=== PATIENT | female | born 1935 | race Caucasian/White ===

== ENCOUNTER → 2017-06-04 | Outpatient (REF) | payer OTHER ==
[~2017-06-04] MED LIST: /METO25TAB OR; /OCUVTA PO; ANUS2.5C2 TOP; ASPI1TAB PO; BENA25TA4 PO; CALCTAB93 PO; CIPR250T3 PO; DEPA1TAB3 PO; DEPA500T2 PO; HAIRTAB5 PO; LISI5TAB PO; MEGA40SU PO; MULTTAB12 PO; MULTTAB4 PO; NITR4TASL SL; NYST50SS SS; PRIL40CA PO; VITAMIN D PO; VITAMIN E PO; VITMTA PO; [UNRECOGNIZED DRUG - OTHER] PO; prednisone
[2017-06-04 18:17] LABS: BASO % 0.7 % (0.0-1.0); EOS # 0.1 K/mm3 (0.0-0.50); EOS % 1.8 % (0.0-3.0); LARGE UNSTAINED CELL # 0.1 K/mm3 (0.0-0.4); LARGE UNSTAINED CELL % 1.4 % (0.0-4.0); LYMPH # 1.1 K/mm3 (1.5-4.5); LYMPH % 22.1 % (24.0-44.0); MEAN CORPUSCULAR HEMOGLOBIN 30.5 pg (27.0-33.0); MEAN CORPUSCULAR HGB CONC 33.3 g/dl (32.0-36.5); MEAN CORPUSCULAR VOLUME 91.8 fl (80.0-96.0); MONO # 0.2 K/mm3 (0.0-0.8); MONO % 4.4 % (0.0-5.0); NEUTROPHILS # 3.5 K/mm3 (1.8-7.7); NEUTROPHILS % 69.6 % (36.0-66.0); PLATELET COUNT, AUTOMATED 219 k/mm3 (150-450); RED CELL DISTRIBUTION WIDTH 13.7 % (11.5-14.5)
[2017-06-04 20:28] LABS: ALBUMIN 3.8 GM/DL (3.2-5.2); ALBUMIN/GLOBULIN RATIO 1.15 (1.00-1.93); ALKALINE PHOSPHATASE 120 U/L (45-117); ALT/SGPT 15 U/L (12-78); ANION GAP 10 MEQ/L (8-16); AST/SGOT 19 U/L (15-37); BILIRUBIN,TOTAL 0.5 MG/DL (0.2-1.0); BLOOD UREA NITROGEN 9 MG/DL (7-18); CARBON DIOXIDE LEVEL 28 MEQ/L (21-32); CHLORIDE LEVEL 106 MEQ/L (98-107); CREATININE FOR GFR 0.56 MG/DL (0.55-1.02); GLOMERULAR FILTRATION RATE > 60.0 (>32); GLUCOSE, FASTING 79 MG/DL (83-110); POTASSIUM SERUM 4.1 MEQ/L (3.5-5.1); SODIUM LEVEL 144 MEQ/L (136-145); TOTAL PROTEIN 7.1 GM/DL (6.4-8.2)
== END ==
LOC: M LABDRAW1 11:55
PROVIDERS: ATTEND Physician Assistant
DX: G40.89 Other seizures (principal); R03.0 Elevated blood-pressure reading, without diagnosis of hypertension

== ENCOUNTER 2019-02-09 17:11 | Emergency (ER) | payer MEDICARE, OTHER ==
[~2019-02-09] VITALS: Ht 167.6 cm; Wt 53.7 kg
[~2019-02-09 17:11] MED LIST changes: -/METO25TAB OR; -/OCUVTA PO; -ASPI1TAB PO; +ASPI81TA26 PO; +METO1TAB87 OR; +PROS2TAB2 PO
[2019-02-09 17:48] LABS: BASO % 0.6 % (0.0-1.0); EOS # 0.3 10^3/uL (0.0-0.50); EOS % 4.3 % (0.0-3.0); HEMATOCRIT 39.5 % (36.0-47.0); HEMOGLOBIN 12.9 g/dl (12.0-15.5); LYMPH # 2.3 10^3/uL (1.5-4.5); LYMPH % 34.6 % (24.0-44.0); MEAN CORPUSCULAR HEMOGLOBIN 30.1 pg (27.0-33.0); MEAN CORPUSCULAR HGB CONC 32.7 g/dl (32.0-36.5); MEAN CORPUSCULAR VOLUME 92.1 fl (80.0-96.0); MONO # 0.6 10^3/uL (0.0-0.8); MONO % 8.5 % (0.0-5.0); NEUTROPHILS # 3.5 10^3/uL (1.8-7.7); NEUTROPHILS % 51.7 % (36.0-66.0); PLATELET COUNT, AUTOMATED 204 10^3/uL (150-450); RED BLOOD COUNT 4.29 10^6/uL (4.00-5.40); WHITE BLOOD COUNT 6.7 10^3/uL (4.0-10.0)
[2019-02-09 17:49] LABS: VENOUS HCO3 23.8 MEQ/L (23.0-27.0); VENOUS O2 SATURATION 86.9 % (60.0-80.0); VENOUS PARTIAL PRESSURE CO2 44.6 mmHg (38.0-50.0); VENOUS PARTIAL PRESSURE O2 57.2 mmHg (30.0-50.0); VENOUS PH 7.345 UNITS (7.330-7.430); VENOUS STANDARD HCO3 22.5 MEQ/L; VENOUS TOTAL CO2 25.2 MEQ/L (24.0-28.0)
[2019-02-09 18:02] LABS: OSMOLALITY SERUM 318 MOSM/KG (280-301)
--- NOTE | 2019-02-09 18:14 | REPVR ---
EXAM: CT Head Without Contrast EXAM DATE/TIME: 02/09/2019 5:42 PM CLINICAL HISTORY: 83 years old, female; Injury or trauma and signs and symptoms; Fall; Initial encounter; Concussion / head injury; Altered mental status/memory loss; Confusion or disorientation; Additional info: Fall/ altered mental status TECHNIQUE: Imaging protocol: Axial computed tomography images of the head/brain without contrast. Radiation optimization: All CT scans at this facility use at least one of these dose optimization techniques: automated exposure control; mA and/or kV adjustment per patient size (includes targeted exams where dose is matched to clinical indication); or iterative reconstruction. COMPARISON: CT Head without contrast 01/02/2016 1:35 PM FINDINGS: Brain: There is mild age-related parenchymal volume loss. White matter changes are demonstrated in the subcortical, centrum semiovale and periventricular white matter consistent with small vessel white matter angiopathic gliosis. Ventricles: The degree of ventricular dilatation is normal for age. No pathologic enlargement demonstrated. Bones/joints: Unremarkable. No acute fracture. Sinuses: Visualized sinuses are unremarkable. No acute sinusitis. Mastoid air cells: Visualized mastoid air cells are unremarkable. No mastoid effusion. Soft tissues: Unremarkable. IMPRESSION: There is mild age-related parenchymal volume loss. White matter changes are demonstrated in the subcortical, centrum semiovale and periventricular white matter consistent with small vessel white matter angiopathic gliosis. Electronically signed by: Dillan Pierre On 02/09/2019 18:14:20 PM
--- NOTE | 2019-02-09 18:24 | REPVR ---
EXAM: CT Cervical Spine Without Contrast EXAM DATE/TIME: 02/09/2019 5:42 PM CLINICAL HISTORY: 83 years old, female; Injury or trauma; Fall; Initial encounter; Blunt trauma; Additional info: Fall/ altered mental status TECHNIQUE: Imaging protocol: Axial computed tomography images of the cervical spine without contrast. Coronal and sagittal reformatted images were created and reviewed. Radiation optimization: All CT scans at this facility use at least one of these dose optimization techniques: automated exposure control; mA and/or kV adjustment per patient size (includes targeted exams where dose is matched to clinical indication); or iterative reconstruction. COMPARISON: CT Spine,cervical w/o contrast 03/01/2013 9:45 AM FINDINGS: Vertebrae: Degenerative changes of atlantoaxial joint. Cortical break on the anterior aspect of the base of the odontoid process with intact posterior cortical margin. Finding unchanged in comparison to the prior study of and likely represents a vascular groove. Discs/Spinal canal/Neural foramina: Disc space narrowing at C3-4 and more pronounced at C5-6 with uncovertebral osteophytes. Moderate foraminal stenosis on the right at C3, moderate foraminal stenosis on the right at C4, bilateral moderate to severe foraminal stenosis at C5, moderate bilateral foraminal stenosis at C6 secondary to uncinate joint hypertrophic change. Small posterior disc protrusion at C2-C3 4, C4-5 without cord compression. Disc osteophyte complex at C5-6 without neural compromise. Soft tissues: Unremarkable. Auditory system: Cerumen right external auditory canal. Lungs: Lung apices demonstrate mild bilateral apical pleural-parenchymal scarring. IMPRESSION: Degenerative spondylosis. No acute findings. THIS REPORT CONTAINS FINDINGS THAT MAY BE CRITICAL TO PATIENT CARE. The findings were verbally communicated via telephone conference with RAGHAVENDRA ARCE at 6:23 PM EDT on 02/09/2019. The findings were acknowledged and understood. Electronically signed by: Dillan Pierre On 02/09/2019 18:24:02 PM
[2019-02-09 18:27] LABS: ACETAMINOPHEN LEVEL < 2.0 UG/ML (10.0-30.0); ALBUMIN 3.4 GM/DL (3.2-5.2); ALT/SGPT 13 U/L (12-78); BILIRUBIN,DIRECT < 0.1 MG/DL (0.0-0.2); BILIRUBIN,TOTAL 0.3 MG/DL (0.2-1.0); BLOOD UREA NITROGEN 6 MG/DL (7-18); CALCIUM LEVEL 8.5 MG/DL (8.8-10.2); CARBON DIOXIDE LEVEL 26 MEQ/L (21-32); CHLORIDE LEVEL 107 MEQ/L (98-107); CPK CREATINE PHOSPHOKINASE 65 U/L (26-192); CREATININE FOR GFR 0.66 MG/DL (0.55-1.30); ETHYL ALCOHOL (ETHANOL) 0.122 % (0.000-0.010); GLOMERULAR FILTRATION RATE > 60.0 (>32); GLUCOSE, FASTING 77 MG/DL (70-100); MB/CK RELATIVE INDEX 4.15 (< OR =4); POTASSIUM SERUM 3.1 MEQ/L (3.5-5.1); SALICYLATE LEVEL < 1.7 MG/DL (5.0-30.0); SODIUM LEVEL 143 MEQ/L (136-145); TOTAL PROTEIN 6.4 GM/DL (6.4-8.2); TROPONIN I < 0.02 NG/ML (< 0.10)
--- NOTE | 2019-02-09 18:49 | REP ---
Chest one-view HISTORY: Altered mental status Comparison: 01/02/2016 The lungs are clear. The heart is normal in size. The pulmonary vasculature is normal in appearance. Impression: No acute disease. Electronically Signed by Neftali Jolley MD 02/09/2019 06:41 P
[2019-02-09] MEDS ORDERED: DEPA500T2 PO (19:23)
[2019-02-09 19:27] LABS: VALPROIC ACID (DEPAKOTE) 5.9 UG/ML (50.0-100.0)
[2019-02-09] MEDS ORDERED: VALPROATE SOD INJ 500 MG in D5W 50 ML IV ONE (19:30)
[2019-02-09] MEDS ORDERED: BENA2CRE3 TOP ×2 (20:52→20:55)
[2019-02-09] MEDS ORDERED: DEPA1TAB3 PO (20:55)
[2019-02-09 21:18] VITALS: BP 164/72
--- NOTE | 2019-02-10 14:32 | ECGEPIP ---
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
== END 2019-02-09 21:19 | disposition home or self-care (01) ==
LOC: EDBD 17:11 → M ED 17:11
DX: G40.909 Epilepsy, unspecified, not intractable, without status epilepticus (principal); J45.909 Unspecified asthma, uncomplicated; J44.9 Chronic obstructive pulmonary disease, unspecified; Z79.899 Other long term (current) drug therapy; Z79.82 Long term (current) use of aspirin; Z88.0 Allergy status to penicillin; Z88.7 Allergy status to serum and vaccine; Z88.8 Allergy status to other drugs, medicaments and biological substances; Z91.011 Allergy to milk products; Z91.012 Allergy to eggs; Z91.040 Latex allergy status
CPT/HCPCS: 70450; 71045; 72125; 80048; 80076; 80164; 81001; 82140; 82550; 82553; 82803; 83605; 83930; 84443; 84484; 85025; 87040; 87077; 87186; 93005; 93041; 96374; 99285; G0480

== ENCOUNTER 2020-03-15 09:58 | Emergency (ER) | payer MEDICARE ==
[~2020-03-15] VITALS: Ht 167.6 cm; Wt 55.8 kg
[~2020-03-15 09:58] MED LIST changes: +BENA2CRE3 TOP
[2020-03-15 10:57] LABS: BASO % 0.6 % (0.0-1.0); EOS # 0.2 10^3/uL (0.0-0.5); EOS % 3.1 % (0.0-3.0); HEMATOCRIT 38.3 % (36.0-47.0); HEMOGLOBIN 12.7 g/dl (12.0-15.5); LYMPH % 20.4 % (24.0-44.0); MEAN CORPUSCULAR HGB CONC 33.2 g/dl (32.0-36.5); MEAN CORPUSCULAR VOLUME 90.5 fl (80.0-96.0); MONO # 0.4 10^3/uL (0.0-0.8); MONO % 7.2 % (0.0-5.0); NEUTROPHILS # 3.5 10^3/uL (1.5-8.5); NEUTROPHILS % 68.3 % (36.0-66.0); PLATELET COUNT, AUTOMATED 210 10^3/uL (150-450); RED BLOOD COUNT 4.23 10^6/uL (4.00-5.40); WHITE BLOOD COUNT 5.1 10^3/uL (4.0-10.0)
--- NOTE | 2020-03-15 11:03 | REPVR ---
PROCEDURE INFORMATION: Exam: CT Head Without Contrast Exam date and time: 03/15/2020 10:06 AM Age: 84 years old Clinical indication: Altered mental status/memory loss TECHNIQUE: Imaging protocol: Computed tomography of the head without contrast. Radiation optimization: All CT scans at this facility use at least one of these dose optimization techniques: automated exposure control; mA and/or kV adjustment per patient size (includes targeted exams where dose is matched to clinical indication); or iterative reconstruction. COMPARISON: CT Head without contrast 02/09/2019 5:34 PM FINDINGS: Brain: Moderate hypoattenuating foci are noted in the central cerebral, posterior superior periatrial and anterior lateral ventricular periventricular white matter bilaterally. Mild bilateral globus pallidus calcifications. No intracranial hemorrhage. No mass or acute cortical infarction identified. Ventricles: Prominence of the ventricular system and subarachnoid spaces is consistent with the patient's age of 84 years. Bones/joints: Unremarkable. No acute fracture. Sinuses: Moderate bilateral sphenoid sinus mucosal thickening, new. Mastoid air cells: Visualized mastoid air cells are well aerated. Vasculature: Atherosclerotic calcifications are present involving the carotid artery siphons bilaterally. Soft tissues: Unremarkable. IMPRESSION: 1. Age appropriate supratentorial and infratentorial atrophy. 2. Moderate chronic white matter microvascular ischemic disease. 3. No acute intracranial abnormality identified. 4. Incidental paranasal sinus disease as above. Electronically signed by: Shahbaz Burr On 03/15/2020 11:02:59 AM
--- NOTE | 2020-03-15 11:21 | REP ---
CHEST, SINGLE VIEW: There is no evidence of acute infiltrate. No pleural effusion is seen. The heart is normal in size. The mediastinal silhouette is unremarkable. The visualized osseous structures are intact. IMPRESSION: No acute pulmonary disease. Electronically Signed by Trace Rocha MD 03/16/2020 12:59 P
[2020-03-15 11:29] LABS: ALBUMIN 3.4 GM/DL (3.2-5.2); ALT/SGPT 14 U/L (12-78); BILIRUBIN,DIRECT 0.2 MG/DL (0.0-0.2); BILIRUBIN,TOTAL 0.8 MG/DL (0.2-1.0); BLOOD UREA NITROGEN 8 MG/DL (7-18); CALCIUM LEVEL 8.8 MG/DL (8.8-10.2); CARBON DIOXIDE LEVEL 26 MEQ/L (21-32); CHLORIDE LEVEL 111 MEQ/L (98-107); CK-MB VALUE MASS 3.1 NG/ML (<3.6); CPK CREATINE PHOSPHOKINASE 66 U/L (26-192); CREATININE FOR GFR 0.58 MG/DL (0.55-1.30); GLOMERULAR FILTRATION RATE > 60.0 (>32); GLUCOSE, FASTING 94 MG/DL (70-100); SODIUM LEVEL 145 MEQ/L (136-145); TOTAL PROTEIN 6.7 GM/DL (6.4-8.2); TROPONIN I < 0.02 NG/ML (< 0.10)
[2020-03-15 11:58] LABS: VENOUS BASE EXCESS 0.4 (-2.0-2.0); VENOUS HCO3 26.5 MEQ/L (23.0-27.0); VENOUS O2 SATURATION 86.6 % (60.0-80.0); VENOUS PARTIAL PRESSURE CO2 48.4 mmHg (38.0-50.0); VENOUS PARTIAL PRESSURE O2 55.4 mmHg (30.0-50.0); VENOUS PH 7.356 UNITS (7.330-7.430); VENOUS STANDARD HCO3 24.6 MEQ/L
[2020-03-15 13:00] VITALS: BP 146/67
--- NOTE | 2020-03-15 20:31 | ECGEPIP ---
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
[2020-03-18 13:54] LABS: OSMOLALITY SERUM 284 mOsmo/kg (280-301)
== END 2020-03-15 13:10 | disposition home or self-care (01) ==
LOC: M ED 09:58
DX: R56.9 Unspecified convulsions (principal); I10 Essential (primary) hypertension; Z91.19 Patient's noncompliance with other medical treatment and regimen; E11.9 Type 2 diabetes mellitus without complications; J45.909 Unspecified asthma, uncomplicated; I34.0 Nonrheumatic mitral (valve) insufficiency; Z88.0 Allergy status to penicillin; Z88.7 Allergy status to serum and vaccine; Z88.8 Allergy status to other drugs, medicaments and biological substances; Z91.011 Allergy to milk products; Z91.012 Allergy to eggs; Z91.040 Latex allergy status

== ENCOUNTER 2020-06-15 17:06 | Inpatient (IN) | payer MEDICARE ==
[~2020-06-15] VITALS: Ht 162.6 cm; Wt 50.8 kg
[2020-06-15] MEDS ORDERED: NS 1,000 ML IV SCH (19:08)
[2020-06-15] MEDS ORDERED: MORPHINE 2 MG/ML 1ML VIAL (J2270) IV ONE (19:15)
--- NOTE | 2020-06-15 19:32 | REPVR ---
PROCEDURE INFORMATION: Exam: XR Chest, 1 View Exam date and time: 06/15/2020 6:38 PM Age: 84 years old Clinical indication: Other: Pre-op; Additional info: FX hip TECHNIQUE: Imaging protocol: XR of the chest Views: 1 view. COMPARISON: CR PORTABLE CHEST X-RAY 03/15/2020 10:15 AM FINDINGS: Lungs: Unremarkable. No consolidation. Pleural space: Unremarkable. No pleural effusion. No pneumothorax. Heart/Mediastinum: Unremarkable. No cardiomegaly. Bones/joints: Moderate scoliosis of the upper thoracic spine, apex to the right. Lace-like sclerotic lesion within the left humerus proximal metaphysis consistent with medullary bone infarct versus cartilaginous lesion (such as enchondroma), unchanged. IMPRESSION: No acute abnormality. Electronically signed by: Rasheed Chapman On 06/15/2020 19:32:05 PM
--- NOTE | 2020-06-15 19:35 | REPVR ---
PROCEDURE INFORMATION: Exam: XR Right Femur Exam date and time: 06/15/2020 6:23 PM Age: 84 years old Clinical indication: Pain; Hip; Right; Additional info: Fall TECHNIQUE: Imaging protocol: XR Right femur. Views: 2 views. COMPARISON: No relevant prior studies available. FINDINGS: Bones/joints: There is an impacted, nondisplaced fracture of the right subcapital femoral neck. The right hip and knee joints are intact. The bones are osteopenic. Soft tissues: Unremarkable. IMPRESSION: Nondisplaced impacted fracture of the right subcapital femoral neck. Electronically signed by: Rasheed Chapman On 06/15/2020 19:35:20 PM
--- NOTE | 2020-06-15 19:36 | REPVR ---
PROCEDURE INFORMATION: Exam: XR Pelvis Exam date and time: 06/15/2020 6:23 PM Age: 84 years old Clinical indication: Hip pain; Right hip; Additional info: Fall TECHNIQUE: Imaging protocol: XR pelvis. Views: 3 or more views. COMPARISON: No relevant prior studies available. FINDINGS: Bones/joints: There is an impacted fracture of the right subcapital femoral neck. The bones are osteopenic. There are mild degenerative arthritic changes within the sacroiliac joints, pubic symphysis and hip joints. The lower sacrum is suboptimally visualized. Soft tissues: Unremarkable. IMPRESSION: Impacted nondisplaced fracture of the right subcapital femoral neck. Electronically signed by: Rasheed Chapman On 06/15/2020 19:36:07 PM
--- NOTE | 2020-06-15 19:55 | REPVR ---
PROCEDURE INFORMATION: Exam: XR Right Tibia and Fibula Exam date and time: 06/15/2020 7:34 PM Age: 84 years old Clinical indication: Other: Injury; Additional info: Fall TECHNIQUE: Imaging protocol: XR Right tibia and fibula. Views: 2 views. COMPARISON: CR Femur RIGHT 06/15/2020 6:40 PM FINDINGS: Bones/joints: The bones are mildly osteopenic. The knee and ankle joints are intact. No fracture or dislocation. Soft tissues: Vascular calcifications within the right lower leg soft tissues. IMPRESSION: No fracture. Electronically signed by: Rasheed Chapman On 06/15/2020 19:54:44 PM
--- NOTE | 2020-06-15 20:12 | REPVR ---
PROCEDURE INFORMATION: Exam: CT Head Without Contrast Exam date and time: 06/15/2020 7:45 PM Age: 84 years old Clinical indication: Injury or trauma; Fall; Initial encounter; Blunt trauma (contusions or hematomas); Consciousness not specified TECHNIQUE: Imaging protocol: Computed tomography of the head without contrast. Radiation optimization: All CT scans at this facility use at least one of these dose optimization techniques: automated exposure control; mA and/or kV adjustment per patient size (includes targeted exams where dose is matched to clinical indication); or iterative reconstruction. COMPARISON: CT Head without contrast 03/15/2020 10:15 AM FINDINGS: Brain: Global cerebral atrophy is consistent with patient's age. Decreased attenuation within the white matter tracts of both cerebral hemispheres is nonspecific but typically seen with small vessel disease/chronic white matter ischemic changes of aging. No intracranial hemorrhage or mass effect. Senescent calcifications within the basal ganglia. Ventricles: Unremarkable. No ventriculomegaly. Bones/joints: No fracture. Sinuses: Mucosal thickening of the sphenoid sinuses. No paranasal sinus air-fluid level. Mastoid air cells: Status post left mastoidectomy. Clear right mastoids. Auditory system: Soft tissue density material within the right and left external auditory canals, indeterminate. Soft tissues: Unremarkable. IMPRESSION: No acute abnormality. Electronically signed by: Rasheed Chapman On 06/15/2020 20:11:21 PM
--- NOTE | 2020-06-15 20:28 | REPVR ---
PROCEDURE INFORMATION: Exam: CT Abdomen And Pelvis Without Contrast Exam date and time: 06/15/2020 7:45 PM Age: 84 years old Clinical indication: Injury or trauma; Fall; Initial encounter; Blunt; Generalized; Additional info: Gen abd pain TECHNIQUE: Imaging protocol: Computed tomography of the abdomen and pelvis without contrast. Radiation optimization: All CT scans at this facility use at least one of these dose optimization techniques: automated exposure control; mA and/or kV adjustment per patient size (includes targeted exams where dose is matched to clinical indication); or iterative reconstruction. COMPARISON: CR Hip,AP,LAT to include Pelvis RIGHT 06/15/2020 6:24 PM FINDINGS: Liver: Unremarkable. No mass. Gallbladder and bile ducts: Normal. No calcified stones. No ductal dilation. Pancreas: Unremarkable. No ductal dilation. Spleen: Unremarkable. No splenomegaly. Adrenals: Normal. No mass. Kidneys and ureters: Unremarkable. No stones. No hydronephrosis. Stomach and bowel: Diverticulosis of the sigmoid colon. No diverticulitis. Findings suspicious for small gastric hiatus hernia. Unremarkable small bowel. Appendix: No evidence of appendicitis. Intraperitoneal space: No free air. No significant fluid collection. Vasculature: Severe atherosclerosis of the abdominal aorta and branch vessels. No aneurysm. Lymph nodes: No enlarged lymph nodes. Bladder: Unremarkable as visualized. Reproductive: Unremarkable as visualized. Bones/joints: Impacted nondisplaced fracture of the right subcapital femoral neck. Mild degenerative spondylosis of the lumbar spine. Minimal anterolisthesis of L4. Mild compression fracture deformity of the superior endplate of L1. This compression fracture of L1 is of uncertain age but new compared to a prior CT scan of the chest performed on 01/03/2016. No retropulsed bony fragment or bony spinal stenosis. Consider evaluation with MRI for evaluation of fracture age as clinically indicated. Soft tissues: Unremarkable. IMPRESSION: 1. No acute abdominopelvic process. 2. Impacted nondisplaced fracture of the right subcapital femoral neck. 3. Mild compression fracture deformity of the superior endplate of L1 is of uncertain age but new compared to a prior CT scan of the chest performed on 01/03/2016. Consider evaluation with MRI for evaluation of fracture age as clinically indicated. Electronically signed by: Rasheed Chapman On 06/15/2020 20:28:25 PM
[2020-06-15 20:39] LABS: BASO % 0.3 % (0.0-1.0); EOS % 0.4 % (0.0-3.0); HEMATOCRIT 39.6 % (36.0-47.0); HEMOGLOBIN 12.6 g/dl (12.0-15.5); LYMPH # 0.5 10^3/uL (1.5-5.0); MEAN CORPUSCULAR HEMOGLOBIN 28.1 pg (27.0-33.0); MEAN CORPUSCULAR HGB CONC 31.8 g/dl (32.0-36.5); MEAN CORPUSCULAR VOLUME 88.2 fl (80.0-96.0); MONO # 0.3 10^3/uL (0.0-0.8); MONO % 4.6 % (0.0-5.0); NEUTROPHILS # 6.2 10^3/uL (1.5-8.5); NEUTROPHILS % 87.3 % (36.0-66.0); PLATELET COUNT, AUTOMATED 210 10^3/uL (150-450); RED BLOOD COUNT 4.49 10^6/uL (4.00-5.40); WHITE BLOOD COUNT 7.1 10^3/uL (4.0-10.0)
--- NOTE | 2020-06-15 20:49 | REPVR ---
PROCEDURE INFORMATION: Exam: CT Cervical Spine Without Contrast Exam date and time: 06/15/2020 7:45 PM Age: 84 years old Clinical indication: Injury or trauma; Fall; Initial encounter; Blunt trauma TECHNIQUE: Imaging protocol: Computed tomography images of the cervical spine without contrast. Radiation optimization: All CT scans at this facility use at least one of these dose optimization techniques: automated exposure control; mA and/or kV adjustment per patient size (includes targeted exams where dose is matched to clinical indication); or iterative reconstruction. COMPARISON: CT Spine,cervical w/o contrast 02/09/2019 5:34 PM FINDINGS: Vertebrae: Bony fusion of the right and left C3-C4 facet joints. Old anterior wedge fracture deformity of T4 is unchanged compared to a prior CT angiogram of the chest performed on 01/03/2016. No acute fracture. Discs/Spinal canal/Neural foramina: Degenerative disc disease and facet arthrosis throughout the cervical spine. Mild bony spinal stenosis at C5-C6. Soft tissues: Unremarkable. Sinuses: Mucosal thickening of the sphenoid sinuses without fluid level. Lungs: Calcified granuloma within the left upper lobe. Noncalcified pleural based nodule measuring 4 mm within the right upper lobe, unchanged compared to the prior chest CT. No additional follow-up recommended. IMPRESSION: 1. Degenerative spondylosis of the cervical spine. 2. No acute fracture. Electronically signed by: Rasheed Chapman On 06/15/2020 20:32:37 PM
[2020-06-15 20:54] LABS: INR 0.99; PROTHROMBIN TIME 13.3 SECONDS (11.8-14.0)
[2020-06-15 20:55] LABS: PARTIAL THROMBOPLASTIN TIME 29.1 SECONDS (25.0-38.4)
[2020-06-15 21:11] LABS: ALBUMIN 3.5 GM/DL (3.2-5.2); ALT/SGPT 16 U/L (12-78); BILIRUBIN,DIRECT 0.3 MG/DL (0.0-0.2); BILIRUBIN,TOTAL 1.2 MG/DL (0.2-1.0); BLOOD UREA NITROGEN 6 MG/DL (7-18); CALCIUM LEVEL 9.3 MG/DL (8.8-10.2); CARBON DIOXIDE LEVEL 29 MEQ/L (21-32); CHLORIDE LEVEL 104 MEQ/L (98-107); CREATININE FOR GFR 0.53 MG/DL (0.55-1.30); GLOMERULAR FILTRATION RATE > 60.0 (>32); GLUCOSE, FASTING 105 MG/DL (70-100); LIPASE 36 U/L (73-393); POTASSIUM SERUM 3.4 MEQ/L (3.5-5.1); SODIUM LEVEL 139 MEQ/L (136-145); VALPROIC ACID (DEPAKOTE) 4.9 UG/ML (50.0-100.0)
[2020-06-15] MEDS ORDERED: POTASSIUM CHLORIDE 10% LIQ 20 MEQ/15 ML UDC PO ONE (21:30)
[2020-06-15] MEDS ORDERED: MORPHINE 2 MG/ML 1ML VIAL (J2270) IV PRN (21:45)
[2020-06-15] MEDS ORDERED: LR 1,000 ML IV SCH (21:45)
--- NOTE | 2020-06-15 21:48 | HPEPDOC ---
[facility] Medical History & Physical Date of Admission Jun 15, 2020 Date of Service: Jun 15, 2020 Primary Care Physician: JASMIN COMER DO Attending Physician: MEGGAN MANN MD History and Physical TIME OF SERVICE: 1152pm CHIEF COMPLAINT: fall HISTORY OF PRESENT ILLNESS: The majority of the history was obtained from I[place]. The patient and her seem to have dementia and could not provide any history. This 84 yr old F came to the hospital via EMS who found her on the ground. There were inconsistent reports about how long the patient was on the ground. Per the patients initially reported that she might have fallen in the morning, but based on ER intake notes the patient may have fallen on Sunday; when EMS picked her up she c/o right hip pain. At the time of my evaluation the patients seemed to have forgotten that his had a fall, denied that she had been c/o about anything, and said that it was possible that his daughter called EMS. He was unable to provide any PMH or SH. 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 HOME MEDICATIONS: Please see below. PHYSICAL EXAM VITAL SIGNS: Please see below. GENERAL APPEARANCE: slim build / well developed /NAD HEENT: temporal wasting/ mucus membranes dry CARDIOVASCULAR: RRR/NMRG / radial pulses intact LUNGS: CTAB on RA ABDOMEN: scaphoid INTEGUMENT: no generalized pallor PSYCHIATRIC: alert / not tracking my movements LABORATORY DATA: 06/15/20 20:42: Immature Granulocyte % (Auto) 0.4, Neutrophils (%) (Auto) 87.3H, Lymphocytes (%) (Auto) 7.0L, Monocytes (%) (Auto) 4.6, Eosinophils (%) (Auto) 0.4, Basophils (%) (Auto) 0.3, Neutrophils # (Auto) 6.2, Lymphocytes # (Auto) 0.5L, Monocytes # (Auto) 0.3, Eosinophils # (Auto) 0.0, Basophils # (Auto) 0.0, Nucleated Red Blood Cells % (auto) 0.0, Prothrombin Time 13.3, Prothromb Time International Ratio 0.99, Activated Partial Thromboplast Time 29.1, Anion Gap 6L, Glomerular Filtration Rate > 60.0, Calcium Level 9.3, Total Bilirubin 1.2H, Direct Bilirubin 0.3H, Aspartate Amino Transf (AST/SGOT) 27, Alanine Aminotransferase (ALT/SGPT) 16, Alkaline Phosphatase 126H, Total Protein 7.0, Albumin 3.5, Albumin/Globulin Ratio 1.0L, Lipase 36L, Valproic Acid (Depakene) Level 4.9L Urine Color YELLOW, Urine Appearance CLEAR, Urine pH 7.0, Urine Specific [place] 1.009, Urine Protein NEGATIVE, Urine Glucose (UA) 1+H, Urine Ketones 1+H, Urine Blood 2+H, Urine Nitrite NEGATIVE, Urine Bilirubin NEGATIVE, Urine Urobilinogen 0.2, Urine Leukocyte Esterase NEGATIVE, Urine WBC (Auto) 2, Urine RBC (Auto) 12H, Urine Hyaline Casts (Auto) 0, Urine Bacteria (Auto) NEGATIVE, Urine Squamous Epithelial Cells 0, Urine Mucus (Auto) SMALL, Urine Sperm (Auto) IMAGING: Xray pelvis IMPRESSION: Impacted nondisplaced fracture of the right subcapital femoral neck. Xray femur IMPRESSION: Nondisplaced impacted fracture of the right subcapital femoral neck. Xray chest IMPRESSION: No acute abnormality. Xray fib/tib IMPRESSION: No fracture. CT cervical spine IMPRESSION: 1. Degenerative spondylosis of the cervical spine. 2. No acute fracture. CT head IMPRESSION: No acute abnormality. CT abd/pelvis IMPRESSION: 1. No acute abdominopelvic process. 2. Impacted nondisplaced fracture of the right subcapital femoral neck. 3. Mild compression fracture deformity of the superior endplate of L1 is of uncertain age but new compared to a prior CT scan of the chest performed on 01/03/2016. Consider evaluation with MRI for evaluation of fracture age as clinically indicated. MICROBIOLOGY: Please see below. ASSESSMENT: is an 84 yr old w a hx of COPD, seizures and visual impairment who was found lying on the floor by EMS and was found to have a right hip fx and L1 fx . PLAN: 1 Fall of unclear cause It is not clear if the patient has a gait disorder, but she is legally blind w hich predisposes her to falling. She also has a hx of seizure disorder and non- compliance w meds CT of the head and cervical spine are unremarkable Trop is wnl Plan: Admit to med/surg / frequent neuro checks/ day time team can call the patients family to obtain collateral hx and consider an EEG 2. Right hip fracture & L1 fx Plan: NPO after midnight w IVF for surgery possibly tomorrow / Ortho consult / PT consult / pain control w Morphine / will need work-up to r/o secondary causes of Osteoporosis which can be done on an out pt prior to selecting medications 3. Osteoporosis Xrays show osteopenia Plan: can f/u w PCP for DEXA (if T score less than -3 will need Endo referral to start Forteo), BMP to calculate CrCl BMP to calculate CrCl prior to selecting bisphosphinate or Denosumab, / start Ca w vit D 4 HTN Plan: start amlodipine pending collateral hx 5 Asthma / COPD Plan: albuterol PRN 6 Seizure Disorder Plan: day time team to call family to obtain collateral hx on meds 7. NIDDM Plan: FSBS w hypoglycemia protocol / day time team to call family to obtain collateral hx on meds 8. Low BMI 18.3 Plan: f/u pre-albumin /day time team may consider swallow eval and or access assoc consult 9. Perioperative Eval RCRI Score = 0 / her BNP is >300 Plan: telemetry w daily trops / no additional testing is needed prior to proceeding with surgery DVT Px w SCDs Dispo: home vs ARU after more than 2 midnights stay Home Medications No Active Prescriptions or Reported Meds Allergies Coded Allergies: Egg Derived (Verified Allergy, Unknown, 02/09/19) Influenza Virus Vaccines (Verified Allergy, Unknown, 02/09/19) Penicillins (Verified Allergy, Unknown, 02/09/19) egg (Verified Allergy, Unknown, 02/09/19) latex (Verified Allergy, Unknown, 02/09/19) milk (Verified Allergy, Unknown, 02/09/19) sulfur dioxide (Verified Allergy, Unknown, 02/09/19) A-FIB/CHADSVASC A-FIB History Current/History of A-Fib/PAF?: No Current PO Anticoag Therapy: No MEGGAN MANN MD Jun 15, 2020 21:48
[2020-06-15 22:44] LABS: MAGNESIUM LEVEL 1.9 MG/DL (1.8-2.4); NT-PRO BNP 889 PG/ML (<450); TROPONIN I 0.03 NG/ML (< 0.10)
[2020-06-15] MEDS ORDERED: ACETAMINOPHEN TAB 650MG DOSE (2X325MG) PO PRN (23:00)
[2020-06-15] MEDS ORDERED: MOM 30ML SUSPENSION UDC PO PRN (23:00)
[2020-06-16 01:41] VITALS: BP 139/82
[2020-06-16 06:00] VITALS: BP 139/81
[2020-06-16] MEDS ORDERED: CLINDAMYCIN 900 MG in IV 1 EA IV ONE (06:00)
[2020-06-16] MEDS ORDERED: GLUCAGON INJ 1MG VIAL SC PRN (06:30)
[2020-06-16] MEDS ORDERED: GLUCOSE 4GM CHEW TABLET PO PRN (06:30)
[2020-06-16] MEDS ORDERED: DEXTROSE 50% 50 ML SYRINGE IV PRN (06:30)
[2020-06-16 06:35] LABS: HEMATOCRIT 34.2 % (36.0-47.0); MEAN CORPUSCULAR HEMOGLOBIN 28.5 pg (27.0-33.0); MEAN CORPUSCULAR HGB CONC 32.2 g/dl (32.0-36.5); MEAN CORPUSCULAR VOLUME 88.6 fl (80.0-96.0); PLATELET COUNT, AUTOMATED 186 10^3/uL (150-450); RED BLOOD COUNT 3.86 10^6/uL (4.00-5.40)
[2020-06-16 07:00] LABS: BLOOD UREA NITROGEN 9 MG/DL (7-18); CALCIUM LEVEL 8.4 MG/DL (8.8-10.2); CARBON DIOXIDE LEVEL 28 MEQ/L (21-32); CHLORIDE LEVEL 109 MEQ/L (98-107); CREATININE FOR GFR 0.44 MG/DL (0.55-1.30); GLOMERULAR FILTRATION RATE > 60.0 (>32); GLUCOSE, FASTING 89 MG/DL (70-100); MAGNESIUM LEVEL 1.9 MG/DL (1.8-2.4); POTASSIUM SERUM 3.3 MEQ/L (3.5-5.1); SODIUM LEVEL 142 MEQ/L (136-145)
[2020-06-16] MEDS: ALBUTEROL SULFATE 2.5 MG/0.5 ML INH NEB SOLN NEB SCH ×3 (07:52→20:34)
[2020-06-16 09:43] LABS: PREALBUMIN 12.1 MG/DL (20.0-40.0); PROLACTIN 7.9 NG/ML; TROPONIN I 0.02 NG/ML (< 0.10)
[2020-06-16] MEDS: CALCIUM/VITAMIN D 500 MG TAB PO SCH ×2 (09:57→22:50)
--- NOTE | 2020-06-16 11:05 | CR ---
DATE OF CONSULTATION: 06/16/2020 CHIEF COMPLAINT: Right hip pain and fracture. This is an 84-year-old woman who fell yesterday injuring her right hip. She was seen in the emergency room and was noted to have a right femoral neck fracture that was somewhat displaced. It posteriorly displaced and impacted. I was asked to evaluate her for this. She denies any other injury. Her review of systems is otherwise documented in the chart and reviewed and otherwise negative. PAST MEDICAL HISTORY: Notable for hypertension, asthma, chronic obstructive pulmonary disease (COPD), seizure disorder, chronic headache, macular degenerative, aortic valve (AV) insufficiency, mitral valve insufficiency, insulin-dependent diabetes, visual issues, ovarian cancer, appendectomy, hysterectomy. SOCIAL HISTORY: History of tobacco use. 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 Lives with her . FAMILY HISTORY: Otherwise unremarkable. ALLERGIES: Egg derived products, influenza vaccine, PENICILLIN, LATEX, milk, sulfur dioxide. MEDICATIONS: Include: - anti-seizure medication - vitamin D PHYSICAL EXAMINATION: Alert, oriented, no acute distress. HEENT: Extraocular muscles intact. Pharynx benign. Cardiac: Regular rate and rhythm. Abdomen: Soft, nontender, nondistended. Extremities: No obvious significant peripheral edema, no calf tenderness, no palpable cords, moves her feet and toes well. Her right hip is significantly irritable to range of motion. She has slight shortening on the right side compared to the left. The left hip is non-irritable. X-rays are reviewed showing an impacted and somewhat displaced femoral neck fracture, would be a garden II. IMPRESSION: Right femoral neck fracture. RECOMMENDATION: Suggest we proceed with hemiarthroplasty. I think this is the most likely thing to get her up and mobile. I do not think there is a role for percutaneous pinning as the fracture is somewhat displaced and she has obvious osteopenia at her age. I talked to her about the nature and the risks of the procedure and she wishes to go ahead. We will plan on doing a right hip hemiarthroplasty. She understands the nature of this, the risks of bleeding, infection, damage to nerves, vessels, persistent pain, wear, loosening, dislocation, leg length inequality, blood clots, medical problems, , among others. Consent was obtained. She wishes to proceed with this. Will hopefully be able to proceed with this later today. She has been placed on the operating room schedule. Apparently, a medical clearance has been obtained. MTDD
[2020-06-16] MEDS ORDERED: CLINDAMYCIN INJ 900MG/6ML VIAL As Ordered ONE (13:47)
[2020-06-16] MEDS ORDERED: propofoL 200 MG/20 ML VIAL As Ordered ONE (14:11)
[2020-06-16] MEDS ORDERED: LIDOCAINE 2% 100MG/5ML SDV (FOR ANES.) As Ordered ONE (14:11)
[2020-06-16] MEDS ORDERED: fentaNYL 100 MCG/2 ML INJECTION (J3010) As Ordered ONE (14:11)
[2020-06-16] MEDS ORDERED: MIDAZOLAM INJ 2MG/2ML VIAL (J2250 PER 1MG) As Ordered ONE (14:11)
[2020-06-16] MEDS ORDERED: CLINDAMYCIN 900 MG/50 ML PREMIX BAG As Ordered ONE (14:19)
[2020-06-16] MEDS ORDERED: EPINEPHrine INJ 1 MG/ML 1ML AMP As Ordered ONE (15:08)
[2020-06-16] MEDS ORDERED: BUPIVACAINE HCL 0.25% 10ML VIAL As Ordered ONE (15:13)
[2020-06-16] MEDS ORDERED: PHENYLephrine HCL 500 MCG/5 ML (100MCG/ML) SYRINGE (J2370) As Ordered ONE (15:28)
[2020-06-16] MEDS ORDERED: fentaNYL 100 MCG/2 ML INJECTION (J3010) IV PRN (17:00)
[2020-06-16] MEDS ORDERED: ONDANSETRON 4MG/2ML VIAL IV PRN ×2 (17:00)
[2020-06-16] MEDS ORDERED: MORPHINE 2 MG/ML 1ML VIAL (J2270) IV PRN (17:00)
[2020-06-16] MEDS ORDERED: ACETAMINOPHEN 500 MG TAB PO PRN (17:00)
[2020-06-16] MEDS ORDERED: LR 1,000 ML IV SCH ×2 (17:00)
--- NOTE | 2020-06-16 17:17 | REPVR ---
PROCEDURE INFORMATION: Exam: XR Right Hip with Pelvis when Performed Exam date and time: 06/16/2020 4:33 PM Age: 84 years old Clinical indication: Prior surgery; Surgery date: Post-operative (0-2 days); Additional info: Post op in pacu [id number] TECHNIQUE: Imaging protocol: XR Right hip with pelvis when performed. Views: 2 or 3 views. COMPARISON: CT ABD PELVIS W/O CONTRAST 06/15/2020 7:42 PM FINDINGS: Bones/joints: There is a total hip replacement in good alignment. Soft tissues: Mild soft tissue air and skin riky. IMPRESSION: No acute findings. Total hip replacement in good alignment. Electronically signed by: Zurdo Hinojosa On 06/16/2020 17:17:15 PM
--- NOTE | 2020-06-16 18:35 | IPNPDOC ---
Text Note Date of Service The patient was seen on 06/16/20. NOTE SUBJECTIVE: no overnight events OBJECTIVE: FOCUSED EXAMINATION: general - no acute distress HEENT - normocephalic heart: regular rate lungs: no abnormalities on auscultation MSK: no gross abnormalities neuro: no focal defecits psych: normal mood VITAL SIGNS: Please see below. 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 Right hip fracture & L1 fx hemiarthroplasty later today 3. Osteoporosis 4 HTN resume home meds 5 Asthma / COPD Plan: albuterol PRN 6 Seizure Disorder will resume home meds 7. NIDDM insulin for glycemic control VS,Fishbone, I+O VS, Fishbone, I+O Laboratory Tests 06/15/20 20:22 06/16/20 06:12 Vital Signs Date Time Temp Pulse Resp B/P (MAP) Pulse Ox O2 Delivery O2 Flow Rate FiO2 06/16/20 18:00 89 18 159/70 (99) 100 Nasal Cannula 3 06/16/20 17:01 98.8 I&O- Last 24 Hours up to 6 AM 06/16/20 06:00 Intake Total 500 ml Output Total 200 ml Balance 300 ml WINDY PAULSON DO Jun 16, 2020 18:35
[2020-06-16 19:20] VITALS: BP 149/50
[2020-06-16] MEDS ORDERED: PERCOCET 5MG/325MG TAB As Ordered ONE (19:24)
[2020-06-16] MEDS: PERCOCET 5MG/325MG TAB PO PRN (19:25)
[2020-06-16] MEDS: ACETAMINOPHEN TAB 650MG DOSE (2X325MG) PO PRN (22:50)
[2020-06-16] MEDS: CLINDAMYCIN 900 MG in IV 1 EA IV SCH (22:50)
[2020-06-17] MEDS: ALBUTEROL SULFATE 2.5 MG/0.5 ML INH NEB SOLN NEB SCH ×4 (01:23→18:06)
[2020-06-17] MEDS: traMADol 50 MG TAB PO PRN ×2 (04:49→15:14)
[2020-06-17 05:00] VITALS: BP 100/70
[2020-06-17] MEDS: CLINDAMYCIN 900 MG in IV 1 EA IV SCH (06:26)
[2020-06-17 07:07] LABS: HEMATOCRIT 29.6 % (36.0-47.0); HEMOGLOBIN 9.3 g/dl (12.0-15.5); MEAN CORPUSCULAR HEMOGLOBIN 28.4 pg (27.0-33.0); MEAN CORPUSCULAR HGB CONC 31.4 g/dl (32.0-36.5); MEAN CORPUSCULAR VOLUME 90.2 fl (80.0-96.0); PLATELET COUNT, AUTOMATED 176 10^3/uL (150-450); RED BLOOD COUNT 3.28 10^6/uL (4.00-5.40)
[2020-06-17] MEDS: MIRALAX *UNIT DOSE* 17GM PACKET PO SCH (09:27)
[2020-06-17] MEDS: PERCOCET 5MG/325MG TAB PO PRN ×2 (09:27→20:49)
[2020-06-17] MEDS: CALCIUM/VITAMIN D 500 MG TAB PO SCH ×2 (09:28→20:49)
[2020-06-17] MEDS: DIVALPROEX 500MG *ER* TAB PO SCH ×2 (09:28→09:45)
[2020-06-17 11:27] LABS: BLOOD UREA NITROGEN 13 MG/DL (7-18); CALCIUM LEVEL 8.1 MG/DL (8.8-10.2); CARBON DIOXIDE LEVEL 29 MEQ/L (21-32); CHLORIDE LEVEL 107 MEQ/L (98-107); CREATININE FOR GFR 0.47 MG/DL (0.55-1.30); GLOMERULAR FILTRATION RATE > 60.0 (>32); GLUCOSE, FASTING 121 MG/DL (70-100); POTASSIUM SERUM 3.5 MEQ/L (3.5-5.1); SODIUM LEVEL 141 MEQ/L (136-145)
[2020-06-17 14:00] VITALS: BP 124/64
[2020-06-17] MEDS: RIVAROXABAN 10 MG TAB (XARELTO) PO SCH (17:32)
[2020-06-17 20:00] VITALS: BP 123/61
[2020-06-17 20:54] VITALS: BP 110/50
--- NOTE | 2020-06-17 23:57 | IPNPDOC ---
Text Note Date of Service The patient was seen on 06/17/20. NOTE SUBJECTIVE: no overnight events OBJECTIVE: FOCUSED EXAMINATION: general - no acute distress HEENT - normocephalic heart: regular rate lungs: no abnormalities on auscultation MSK: no gross abnormalities neuro: no focal defecits psych: normal mood VITAL SIGNS: Please see below. 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 Right hip fracture & L1 fx s/p hemiarthroplasty 3. Osteoporosis 4 HTN resume home meds 5 Asthma / COPD Plan: albuterol PRN 6 Seizure Disorder will resume home meds 7. NIDDM insulin for glycemic control disposition: ARU screen tomorrow VS,Markbone, I+O VS, Fishbone, I+O Laboratory Tests 06/17/20 06:43 06/17/20 10:43 Vital Signs Date Time Temp Pulse Resp B/P (MAP) Pulse Ox O2 Delivery O2 Flow Rate FiO2 06/17/20 20:54 98.5 99 20 110/50 (70) 94 Room Air 06/16/20 19:34 2.0 I&O- Last 24 Hours up to 6 AM 06/17/20 06:00 Intake Total 1100 ml Output Total 275 ml Balance 825 ml WINDY PAULSON DO Jun 17, 2020 23:57
[2020-06-18] MEDS: ALBUTEROL SULFATE 2.5 MG/0.5 ML INH NEB SOLN NEB SCH ×4 (02:00→18:11)
[2020-06-18 05:40] VITALS: BP 134/60
[2020-06-18] MEDS: traMADol 50 MG TAB PO PRN ×2 (05:54→12:34)
[2020-06-18 06:31] LABS: HEMOGLOBIN 9.6 g/dl (12.0-15.5); MEAN CORPUSCULAR HEMOGLOBIN 28.8 pg (27.0-33.0); MEAN CORPUSCULAR VOLUME 90.1 fl (80.0-96.0); PLATELET COUNT, AUTOMATED 180 10^3/uL (150-450); RED BLOOD COUNT 3.33 10^6/uL (4.00-5.40); WHITE BLOOD COUNT 6.9 10^3/uL (4.0-10.0)
[2020-06-18] MEDS: MIRALAX *UNIT DOSE* 17GM PACKET PO SCH (09:00)
[2020-06-18] MEDS: DIVALPROEX 500MG *ER* TAB PO SCH (10:04)
[2020-06-18] MEDS: CALCIUM/VITAMIN D 500 MG TAB PO SCH ×2 (10:05→20:35)
[2020-06-18 14:00] VITALS: BP 138/91
[2020-06-18] MEDS: RIVAROXABAN 10 MG TAB (XARELTO) PO SCH (17:44)
[2020-06-18 22:00] VITALS: BP 143/65
[2020-06-19] MEDS: ALBUTEROL SULFATE 2.5 MG/0.5 ML INH NEB SOLN NEB SCH ×4 (03:49→18:34)
[2020-06-19 06:00] VITALS: BP 138/59
[2020-06-19 07:44] LABS: HEMATOCRIT 28.8 % (36.0-47.0); HEMOGLOBIN 9.2 g/dl (12.0-15.5); MEAN CORPUSCULAR HEMOGLOBIN 28.6 pg (27.0-33.0); MEAN CORPUSCULAR HGB CONC 31.9 g/dl (32.0-36.5); MEAN CORPUSCULAR VOLUME 89.4 fl (80.0-96.0); PLATELET COUNT, AUTOMATED 210 10^3/uL (150-450); RED BLOOD COUNT 3.22 10^6/uL (4.00-5.40); WHITE BLOOD COUNT 6.6 10^3/uL (4.0-10.0)
[2020-06-19] MEDS: CALCIUM/VITAMIN D 500 MG TAB PO SCH ×2 (09:00→20:43)
[2020-06-19] MEDS: MIRALAX *UNIT DOSE* 17GM PACKET PO SCH (09:00)
[2020-06-19] MEDS: DIVALPROEX 500MG *ER* TAB PO SCH (09:00)
[2020-06-19] MEDS: traMADol 50 MG TAB PO PRN (13:47)
[2020-06-19 14:00] VITALS: BP 134/62
[2020-06-19] MEDS: RIVAROXABAN 10 MG TAB (XARELTO) PO SCH (17:16)
[2020-06-19 22:00] VITALS: BP 128/57
[2020-06-20] MEDS: ALBUTEROL SULFATE 2.5 MG/0.5 ML INH NEB SOLN NEB SCH ×4 (01:33→17:55)
[2020-06-20] MEDS: ACETAMINOPHEN TAB 650MG DOSE (2X325MG) PO PRN (04:48)
[2020-06-20 06:00] VITALS: BP 148/67
[2020-06-20] MEDS: MIRALAX *UNIT DOSE* 17GM PACKET PO SCH (09:00)
[2020-06-20] MEDS: CALCIUM/VITAMIN D 500 MG TAB PO SCH ×2 (09:00→20:31)
[2020-06-20] MEDS: traMADol 50 MG TAB PO PRN ×2 (10:13→20:31)
[2020-06-20] MEDS: DIVALPROEX 500MG *ER* TAB PO SCH (10:14)
[2020-06-20 14:00] VITALS: BP 150/72
[2020-06-20] MEDS: RIVAROXABAN 10 MG TAB (XARELTO) PO SCH (17:50)
[2020-06-21] MEDS: ALBUTEROL SULFATE 2.5 MG/0.5 ML INH NEB SOLN NEB SCH ×4 (00:23→18:01)
[2020-06-21 06:00] VITALS: BP 135/72
[2020-06-21] MEDS: CALCIUM/VITAMIN D 500 MG TAB PO SCH ×2 (08:53→20:20)
[2020-06-21] MEDS: DIVALPROEX 500MG *ER* TAB PO SCH (08:53)
[2020-06-21] MEDS: MIRALAX *UNIT DOSE* 17GM PACKET PO SCH (08:53)
[2020-06-21] MEDS: traMADol 50 MG TAB PO PRN (13:15)
[2020-06-21] MEDS: ACETAMINOPHEN TAB 650MG DOSE (2X325MG) PO PRN ×2 (13:15→18:03)
[2020-06-21] MEDS: RIVAROXABAN 10 MG TAB (XARELTO) PO SCH (18:02)
[2020-06-21] MEDS: hydrOXYzine 25 MG TAB PO SCH (20:20)
[2020-06-22] MEDS: ALBUTEROL SULFATE 2.5 MG/0.5 ML INH NEB SOLN NEB SCH ×4 (01:32→18:27)
[2020-06-22 06:00] VITALS: BP 138/65
[2020-06-22] MEDS: ACETAMINOPHEN TAB 650MG DOSE (2X325MG) PO PRN ×2 (06:59→17:46)
[2020-06-22] MEDS: CALCIUM/VITAMIN D 500 MG TAB PO SCH ×2 (08:07→21:05)
[2020-06-22] MEDS: MIRALAX *UNIT DOSE* 17GM PACKET PO SCH (08:11)
[2020-06-22] MEDS: DIVALPROEX 500MG *ER* TAB PO SCH (09:00)
[2020-06-22] MEDS: diphenhydrAMINE CREAM 30GM TOP PRN (10:14)
--- NOTE | 2020-06-22 12:29 | IPNPDOC ---
Text Note Date of Service The patient was seen on 06/22/20. NOTE Subjective: Patient is an 84 year old female with a PMHx of Dementia, HTN, NIDDM2, Asthma / COPD, Seizure disorder, Chronic headache, who presented to the ED after she was found on the ground. Unclear how long patient was on the ground. Was found to have a right hip fracture and was admitted to the hospitalist service for further evaluation and treatment. Orthopedic surgery was called on consultation. Patient was seen and examined at the bedside. Currently patient notes that she is doing fine. Denies any CP, SOB or palpitations. Reports no nausea, vomiting, abdominal pain or diarrhea. Objective: Vitals (See below) General: Lying in bed, no acute distress, comfortable, AAOx3 HEENT: NC, AT CVS: RRR, +S1S2 Lungs: Fair air entry b/l, -w/r/r Abdomen: Soft, ND, NT, +BSx4 Extremities: No evidence of edema, - Calf tenderness Imaging: Xray pelvis IMPRESSION: Impacted nondisplaced fracture of the right subcapital femoral neck. Xray femur IMPRESSION: Nondisplaced impacted fracture of the right subcapital femoral neck. Xray chest IMPRESSION: No acute abnormality. Xray fib/tib IMPRESSION: No fracture. CT cervical spine IMPRESSION: 1. Degenerative spondylosis of the cervical spine. 2. No acute fracture. CT head IMPRESSION: No acute abnormality. CT abd/pelvis IMPRESSION: 1. No acute abdominopelvic process. 2. Impacted nondisplaced fracture of the right subcapital femoral neck. 3. Mild compression fracture deformity of the superior endplate of L1 is of uncertain age but new compared to a prior CT scan of the chest performed on 01/03/2016. Consider evaluation with MRI for evaluation of fracture age as clinically indicated. Assessment and plan: Fall of unclear cause - possibly 2/2 gait instability - Patient is legally blind - c/w PT and OT Right hip fracture & L1 fx - s/p hemiarthroplasty (06/17) - c/w full anticoagulation with Xarelto HTN - BP well controlled - c/w Amlodipine with holding parameters NIDDM2 - c/w ISS Asthma / COPD - No evidence of exacerbation - c/w inhaled therapy as ordered Seizure Disorder - c/w Divalproex Anxiety - c/w Hydroxyzine PRN Osteoporosis - c/w Calcium / Vitamin D DVT prophylaxis - c/w full anticoagulation with Xarleto Disposition: - Currently ALC status - Awaiting placement VS,Fishbone, I+O VS, Fishbone, I+O Vital Signs Date Time Temp Pulse Resp B/P (MAP) Pulse Ox O2 Delivery O2 Flow Rate FiO2 06/22/20 06:00 99.0 93 17 138/65 (89) 94 Room Air 06/16/20 19:34 2.0 I&O- Last 24 Hours up to 6 AM 06/22/20 06:00 Intake Total 630 ml Balance 630 ml NIKKI TRINH MD Jun 22, 2020 12:29
[2020-06-22] MEDS: traMADol 50 MG TAB PO PRN ×2 (14:37→21:06)
[2020-06-22] MEDS: RIVAROXABAN 10 MG TAB (XARELTO) PO SCH (17:46)
[2020-06-22] MEDS: hydrOXYzine 25 MG TAB PO SCH (21:06)
[2020-06-23] MEDS: ALBUTEROL SULFATE 2.5 MG/0.5 ML INH NEB SOLN NEB SCH ×4 (00:42→20:10)
[2020-06-23 06:00] VITALS: BP 150/72
[2020-06-23] MEDS: traMADol 50 MG TAB PO PRN (06:47)
[2020-06-23] MEDS: DIVALPROEX 500MG *ER* TAB PO SCH (08:46)
[2020-06-23] MEDS: MIRALAX *UNIT DOSE* 17GM PACKET PO SCH (08:46)
[2020-06-23] MEDS: diphenhydrAMINE CREAM 30GM TOP PRN (08:47)
[2020-06-23] MEDS: CALCIUM/VITAMIN D 500 MG TAB PO SCH ×2 (08:47→20:58)
[2020-06-23 14:38] LABS: BLOOD UREA NITROGEN 19 MG/DL (7-18); CALCIUM LEVEL 9.2 MG/DL (8.8-10.2); CARBON DIOXIDE LEVEL 31 MEQ/L (21-32); CHLORIDE LEVEL 105 MEQ/L (98-107); CREATININE FOR GFR 0.51 MG/DL (0.55-1.30); GLOMERULAR FILTRATION RATE > 60.0 (>32); GLUCOSE, FASTING 105 MG/DL (70-100); MAGNESIUM LEVEL 2.2 MG/DL (1.8-2.4); POTASSIUM SERUM 4.3 MEQ/L (3.5-5.1); SODIUM LEVEL 141 MEQ/L (136-145)
[2020-06-23] MEDS ORDERED: NS 500 ML IV SCH (17:15)
[2020-06-23] MEDS: RIVAROXABAN 10 MG TAB (XARELTO) PO SCH (17:57)
[2020-06-23] MEDS: hydrOXYzine 25 MG TAB PO SCH (20:58)
[2020-06-24] MEDS: ALBUTEROL SULFATE 2.5 MG/0.5 ML INH NEB SOLN NEB SCH ×4 (01:14→19:47)
[2020-06-24] MEDS: ACETAMINOPHEN TAB 650MG DOSE (2X325MG) PO PRN ×3 (03:55→20:24)
[2020-06-24 06:00] VITALS: BP 115/61
[2020-06-24] MEDS: MIRALAX *UNIT DOSE* 17GM PACKET PO SCH (08:28)
[2020-06-24] MEDS: CALCIUM/VITAMIN D 500 MG TAB PO SCH ×2 (08:28→20:23)
[2020-06-24] MEDS: DIVALPROEX 500MG *ER* TAB PO SCH (08:29)
[2020-06-24] MEDS: RIVAROXABAN 10 MG TAB (XARELTO) PO SCH (18:20)
[2020-06-24] MEDS: hydrOXYzine 25 MG TAB PO SCH (20:23)
[2020-06-25] MEDS: ALBUTEROL SULFATE 2.5 MG/0.5 ML INH NEB SOLN NEB SCH ×4 (02:00→20:00)
[2020-06-25 05:54] VITALS: BP 100/68
[2020-06-25 08:35] LABS: HEMATOCRIT 31.9 % (36.0-47.0); MEAN CORPUSCULAR HEMOGLOBIN 28.7 pg (27.0-33.0); MEAN CORPUSCULAR HGB CONC 31.3 g/dl (32.0-36.5); MEAN CORPUSCULAR VOLUME 91.7 fl (80.0-96.0); PLATELET COUNT, AUTOMATED 391 10^3/uL (150-450); RED BLOOD COUNT 3.48 10^6/uL (4.00-5.40); WHITE BLOOD COUNT 7.9 10^3/uL (4.0-10.0)
[2020-06-25 08:48] LABS: BLOOD UREA NITROGEN 15 MG/DL (7-18); CALCIUM LEVEL 9.3 MG/DL (8.8-10.2); CARBON DIOXIDE LEVEL 30 MEQ/L (21-32); CHLORIDE LEVEL 108 MEQ/L (98-107); CREATININE FOR GFR 0.47 MG/DL (0.55-1.30); GLOMERULAR FILTRATION RATE > 60.0 (>32); GLUCOSE, FASTING 94 MG/DL (70-100); POTASSIUM SERUM 3.8 MEQ/L (3.5-5.1); SODIUM LEVEL 143 MEQ/L (136-145)
[2020-06-25] MEDS: MIRALAX *UNIT DOSE* 17GM PACKET PO SCH (09:00)
[2020-06-25] MEDS: CALCIUM/VITAMIN D 500 MG TAB PO SCH ×2 (10:54→20:28)
[2020-06-25] MEDS: DIVALPROEX 500MG *ER* TAB PO SCH (10:58)
[2020-06-25] MEDS: ACETAMINOPHEN TAB 650MG DOSE (2X325MG) PO PRN ×2 (11:12→18:21)
--- NOTE | 2020-06-25 16:03 | ECGEPIP ---
[facility] - ED Test Date: 2020-06-15 Pat Name: HENRY MULLIGAN Department: Room: [place] [address] Gender: Female Heel Breaster: sakina : 1935 Requested By: HYUN Reyes Order Number: [id number] Reading MD: Elvia Sanchez Measurements Intervals [place] Rate: 107 P: 71 AR: 169 QRS: 44 QRSD: 84 T: 78 QT: 365 QTc: 487 Interpretive Statements SINUS TACHYCARDIA WITH FREQUENT SUPRAVENTRICULAR PREMATURE COMPLEXES MODERATE ST DEPRESSION ABNORMAL ECG DELAYED R PROGRESSION SEE SCANNED DOWNTIME REPORT
[2020-06-25] MEDS: RIVAROXABAN 10 MG TAB (XARELTO) PO SCH (16:28)
[2020-06-25] MEDS: traMADol 50 MG TAB PO PRN ×2 (18:21→23:17)
[2020-06-25] MEDS: CIPROFLOXACIN 250MG TAB PO SCH (19:29)
[2020-06-25] MEDS: hydrOXYzine 25 MG TAB PO SCH (20:28)
[2020-06-26] MEDS: ALBUTEROL SULFATE 2.5 MG/0.5 ML INH NEB SOLN NEB SCH ×4 (02:00→19:51)
[2020-06-26] MEDS: CIPROFLOXACIN 250MG TAB PO SCH ×2 (05:09→18:01)
[2020-06-26 05:45] VITALS: BP 119/67
[2020-06-26] MEDS: MIRALAX *UNIT DOSE* 17GM PACKET PO SCH (09:00)
[2020-06-26] MEDS: CALCIUM/VITAMIN D 500 MG TAB PO SCH ×2 (09:38→20:36)
[2020-06-26] MEDS: DIVALPROEX 500MG *ER* TAB PO SCH (09:39)
[2020-06-26] MEDS: RIVAROXABAN 10 MG TAB (XARELTO) PO SCH (18:01)
[2020-06-26] MEDS: hydrOXYzine 25 MG TAB PO SCH (20:36)
[2020-06-26] MEDS: ACETAMINOPHEN TAB 650MG DOSE (2X325MG) PO PRN (20:36)
[2020-06-26] MEDS ORDERED: QUEtiapine FUMARATE 12.5 MG HALF-TAB PO SCH (21:00)
[2020-06-27] MEDS: ALBUTEROL SULFATE 2.5 MG/0.5 ML INH NEB SOLN NEB SCH ×4 (02:00→20:00)
[2020-06-27] MEDS: CIPROFLOXACIN 250MG TAB PO SCH ×2 (05:18→05:53)
[2020-06-27 05:44] LABS: BASO % 0.8 % (0.0-1.0); EOS # 0.2 10^3/uL (0.0-0.5); EOS % 3.2 % (0.0-3.0); HEMOGLOBIN 9.2 g/dl (12.0-15.5); LYMPH # 0.9 10^3/uL (1.5-5.0); LYMPH % 18.8 % (24.0-44.0); MEAN CORPUSCULAR HGB CONC 30.7 g/dl (32.0-36.5); MEAN CORPUSCULAR VOLUME 91.2 fl (80.0-96.0); MONO # 0.5 10^3/uL (0.0-0.8); MONO % 9.2 % (0.0-5.0); NEUTROPHILS # 3.3 10^3/uL (1.5-8.5); NEUTROPHILS % 66.4 % (36.0-66.0); PLATELET COUNT, AUTOMATED 352 10^3/uL (150-450); RED BLOOD COUNT 3.29 10^6/uL (4.00-5.40)
[2020-06-27 05:46] VITALS: BP 153/66
[2020-06-27 05:59] LABS: BLOOD UREA NITROGEN 13 MG/DL (7-18); CALCIUM LEVEL 9.3 MG/DL (8.8-10.2); CARBON DIOXIDE LEVEL 29 MEQ/L (21-32); CHLORIDE LEVEL 106 MEQ/L (98-107); CREATININE FOR GFR 0.37 MG/DL (0.55-1.30); GLOMERULAR FILTRATION RATE > 60.0 (>32); GLUCOSE, FASTING 78 MG/DL (70-100); MAGNESIUM LEVEL 1.9 MG/DL (1.8-2.4); POTASSIUM SERUM 3.5 MEQ/L (3.5-5.1); SODIUM LEVEL 139 MEQ/L (136-145)
[2020-06-27] MEDS ORDERED: XARE10TA PO (05:59)
[2020-06-27] MEDS ORDERED: TRAM50TA2 PO (05:59)
[2020-06-27] MEDS: MIRALAX *UNIT DOSE* 17GM PACKET PO SCH (09:00)
[2020-06-27] MEDS: ACETAMINOPHEN TAB 650MG DOSE (2X325MG) PO PRN (11:54)
[2020-06-27] MEDS: DIVALPROEX 500MG *ER* TAB PO SCH (11:54)
[2020-06-27] MEDS: CALCIUM/VITAMIN D 500 MG TAB PO SCH ×2 (11:55→20:30)
[2020-06-27] MEDS ORDERED: NS 500 ML IV ONE (12:30)
--- NOTE | 2020-06-27 13:07 | REPVR ---
PROCEDURE INFORMATION: Exam: XR Chest, 1 View Exam date and time: 06/27/2020 12:37 PM Age: 84 years old Clinical indication: Chest pain; Additional info: Fever TECHNIQUE: Imaging protocol: XR of the chest Views: 1 view. COMPARISON: CR Chest, 1 view 06/15/2020 6:36 PM FINDINGS: Lungs: There is mild atelectasis and possibly infiltrate in the left mid to lower lung. The lungs are otherwise clear. Pleural space: The costophrenic angles are sharp. No definite pneumothorax is evident, allowing for incomplete inclusion of the right apex. Heart/Mediastinum: The cardiomediastinal silhouette is stable in appearance allowing for differences in positioning. Bones/joints: Degenerative changes again involve the spine and shoulders. There is a similar chondroid appearing lesion in the proximal left humerus. IMPRESSION: Mild atelectasis and possibly infiltrate in the left mid to lower lung. Electronically signed by: Austyn Cardona On 06/27/2020 13:07:49 PM
[2020-06-27 13:13] LABS: BASO % 0.7 % (0.0-1.0); EOS # 0.1 10^3/uL (0.0-0.5); EOS % 2.3 % (0.0-3.0); HEMATOCRIT 31.3 % (36.0-47.0); HEMOGLOBIN 9.8 g/dl (12.0-15.5); LYMPH # 0.9 10^3/uL (1.5-5.0); LYMPH % 15.5 % (24.0-44.0); MEAN CORPUSCULAR HEMOGLOBIN 28.3 pg (27.0-33.0); MEAN CORPUSCULAR HGB CONC 31.3 g/dl (32.0-36.5); MEAN CORPUSCULAR VOLUME 90.5 fl (80.0-96.0); MONO # 0.4 10^3/uL (0.0-0.8); MONO % 7.4 % (0.0-5.0); NEUTROPHILS # 4.1 10^3/uL (1.5-8.5); NEUTROPHILS % 72.7 % (36.0-66.0); PLATELET COUNT, AUTOMATED 387 10^3/uL (150-450); RED BLOOD COUNT 3.46 10^6/uL (4.00-5.40); WHITE BLOOD COUNT 5.7 10^3/uL (4.0-10.0)
[2020-06-27 13:29] LABS: BLOOD UREA NITROGEN 11 MG/DL (7-18); C REACTIVE PROTEIN QUANTITATIV 2.42 MG/DL (0.00-0.30); CALCIUM LEVEL 8.4 MG/DL (8.8-10.2); CARBON DIOXIDE LEVEL 30 MEQ/L (21-32); CHLORIDE LEVEL 106 MEQ/L (98-107); CREATININE FOR GFR 0.44 MG/DL (0.55-1.30); GLOMERULAR FILTRATION RATE > 60.0 (>32); GLUCOSE, FASTING 84 MG/DL (70-100); MAGNESIUM LEVEL 1.9 MG/DL (1.8-2.4); POTASSIUM SERUM 3.8 MEQ/L (3.5-5.1); SODIUM LEVEL 142 MEQ/L (136-145)
--- NOTE | 2020-06-27 14:13 | REPVR ---
PROCEDURE INFORMATION: Exam: CT Chest Without Contrast Exam date and time: 06/27/2020 1:53 PM Age: 84 years old Clinical indication: Abnormal findings; Abnormal radiologic exam of lung or chest; Fever; Additional info: Fever / lll infiltrate TECHNIQUE: Imaging protocol: Computed tomography of the chest without contrast. 3D rendering (Not supervised by radiologist): MIP and/or 3D reconstructed images were created by the technologist. Radiation optimization: All CT scans at this facility use at least one of these dose optimization techniques: automated exposure control; mA and/or kV adjustment per patient size (includes targeted exams where dose is matched to clinical indication); or iterative reconstruction. COMPARISON: CT ANGIO CHEST 01/03/2016 11:54 AM FINDINGS: Limitations: Evaluation is somewhat limited by lack of IV contrast. Lungs: The lungs are again hyperinflated, with a few small blebs and bullae at the apices. A calcified granuloma is again present in the right upper lobe, and another is again present in the right lower lobe. There is also again a noncalcified 5 mm nodule in the right upper lobe (image 202:37), with some scarring adjacent to it. A 6 mm nodule in the left lower lobe appears stable (image 202:43). Mild dependent atelectasis is present bilaterally, without definite infiltrate. The central airways appear patent. There is again calcification of the tracheobronchial tree. Pleural space: There is a very small left pleural effusion. No significant right effusion. No pneumothorax. Heart: Coronary artery calcifications are noted. No significant pericardial effusion. Aorta: The thoracic aorta is nonaneurysmal. Atherosclerotic vascular calcifications are again present. Lymph nodes: No gross pathologic lymphadenopathy. Bones/joints: Unremarkable. No acute fracture. Soft tissues: Unremarkable. IMPRESSION: 1. Very small left pleural effusion with bibasilar dependent atelectasis but no definite infiltrate. 2. Mild emphysematous disease, similar to 01/01 03/30. 3. Stable appearance of pulmonary nodules measuring up to 6 mm, which no longer require follow-up per Fleischner criteria. Electronically signed by: Austyn Cardona On 06/27/2020 14:12:51 PM
[2020-06-27] MEDS: RIVAROXABAN 10 MG TAB (XARELTO) PO SCH (18:42)
[2020-06-27] MEDS: hydrOXYzine 25 MG TAB PO SCH (20:29)
[2020-06-28] MEDS: ALBUTEROL SULFATE 2.5 MG/0.5 ML INH NEB SOLN NEB SCH ×2 (02:00→07:39)
[2020-06-28] MEDS: LevoFLOXacin 500 MG TABLET PO SCH (05:24)
[2020-06-28] MEDS: ACETAMINOPHEN TAB 650MG DOSE (2X325MG) PO PRN ×3 (05:24→20:23)
--- NOTE | 2020-06-28 07:09 | EEG ---
DATE: 06/16/2020 REFERRING PHYSICIAN: Agnes Meredith MD DIAGNOSIS: Fall, rule out seizure. EEG #: [id number] HISTORY: The patient is an 84-year-old woman who was admitted at [facility] for right hip fracture due to a fall. This electroencephalogram (EEG) was done to rule out epileptic potential. She has a history of dementia, seizures, syncope etc. She is currently taking morphine, calcium and vitamin D, amlodipine, clindamycin, etc. TECHNICAL DESCRIPTION: This digital electroencephalogram (EEG) was record by 21 scalp, ear and two electrocardiogram (EKG) electrodes. It was reviewed in bipolar and referential montages following reformatting in 10-20 international electrode placement system. INTERPRETATION: The patient was mostly noted to be in a sleep state during this electroencephalogram (EEG). During brief arousals, background rhythm consisted of 8 Hz alpha activity measuring 15-40 microvolts in amplitude. Stage 2 and 3 sleep was reviewed and were symmetric bilaterally. Hyperventilation could not be performed. Photic stimulation remained unremarkable. Electrocardiogram (EKG) revealed sinus rhythm with PVCs. No focal, lateralizing or epileptiform abnormalities are seen. No relevant clinical activity was noted. CONCLUSION: This electroencephalogram (EEG) in mostly stage 2 and 3 sleep is within normal limits. MTDD
[2020-06-28 07:18] LABS: HEMATOCRIT 28.1 % (36.0-47.0); HEMOGLOBIN 8.8 g/dl (12.0-15.5); MEAN CORPUSCULAR HEMOGLOBIN 28.4 pg (27.0-33.0); MEAN CORPUSCULAR HGB CONC 31.3 g/dl (32.0-36.5); MEAN CORPUSCULAR VOLUME 90.6 fl (80.0-96.0); PLATELET COUNT, AUTOMATED 369 10^3/uL (150-450)
[2020-06-28 07:41] LABS: BLOOD UREA NITROGEN 11 MG/DL (7-18); C REACTIVE PROTEIN QUANTITATIV 3.08 MG/DL (0.00-0.30); CALCIUM LEVEL 8.8 MG/DL (8.8-10.2); CARBON DIOXIDE LEVEL 26 MEQ/L (21-32); CHLORIDE LEVEL 108 MEQ/L (98-107); CREATININE FOR GFR 0.36 MG/DL (0.55-1.30); GLOMERULAR FILTRATION RATE > 60.0 (>32); GLUCOSE, FASTING 64 MG/DL (70-100); MAGNESIUM LEVEL 1.9 MG/DL (1.8-2.4); POTASSIUM SERUM 3.7 MEQ/L (3.5-5.1); SODIUM LEVEL 141 MEQ/L (136-145)
[2020-06-28] MEDS ORDERED: ALBUTEROL SULFATE 2.5 MG/0.5 ML INH NEB SOLN NEB PRN (08:00)
[2020-06-28] MEDS: MIRALAX *UNIT DOSE* 17GM PACKET PO SCH (08:54)
[2020-06-28] MEDS: DIVALPROEX 500MG *ER* TAB PO SCH (08:54)
[2020-06-28] MEDS: CALCIUM/VITAMIN D 500 MG TAB PO SCH ×2 (08:55→20:23)
[2020-06-28] MEDS: RIVAROXABAN 10 MG TAB (XARELTO) PO SCH (17:29)
[2020-06-28] MEDS: hydrOXYzine 25 MG TAB PO SCH (20:23)
[2020-06-29 06:00] VITALS: BP 142/63
[2020-06-29] MEDS: LevoFLOXacin 500 MG TABLET PO SCH (06:29)
[2020-06-29 06:45] LABS: HEMATOCRIT 28.7 % (36.0-47.0); HEMOGLOBIN 8.9 g/dl (12.0-15.5); MEAN CORPUSCULAR HEMOGLOBIN 28.1 pg (27.0-33.0); MEAN CORPUSCULAR VOLUME 90.5 fl (80.0-96.0); PLATELET COUNT, AUTOMATED 382 10^3/uL (150-450); RED BLOOD COUNT 3.17 10^6/uL (4.00-5.40); WHITE BLOOD COUNT 5.6 10^3/uL (4.0-10.0)
[2020-06-29 07:10] LABS: BLOOD UREA NITROGEN 10 MG/DL (7-18); C REACTIVE PROTEIN QUANTITATIV 2.36 MG/DL (0.00-0.30); CALCIUM LEVEL 8.4 MG/DL (8.8-10.2); CARBON DIOXIDE LEVEL 27 MEQ/L (21-32); CHLORIDE LEVEL 107 MEQ/L (98-107); CREATININE FOR GFR 0.38 MG/DL (0.55-1.30); GLOMERULAR FILTRATION RATE > 60.0 (>32); GLUCOSE, FASTING 60 MG/DL (70-100); MAGNESIUM LEVEL 1.9 MG/DL (1.8-2.4); POTASSIUM SERUM 3.8 MEQ/L (3.5-5.1); SODIUM LEVEL 143 MEQ/L (136-145)
[2020-06-29] MEDS: MIRALAX *UNIT DOSE* 17GM PACKET PO SCH (08:32)
[2020-06-29 08:33] VITALS: BP 130/64
[2020-06-29] MEDS: DIVALPROEX 500MG *ER* TAB PO SCH (08:33)
[2020-06-29] MEDS: CALCIUM/VITAMIN D 500 MG TAB PO SCH (08:34)
[2020-06-29] MEDS ORDERED: LEVA1TAB2 PO (10:48)
[2020-06-29] MEDS ORDERED: DEPA500T2 PO (10:48)
[2020-06-29] MEDS ORDERED: CALCD50TA PO (10:48)
[2020-06-29] MEDS ORDERED: AMLO25TA PO (10:48)
[2020-06-29] MEDS ORDERED: PEG1POW PO (10:48)
--- NOTE | 2020-06-29 10:56 | DS.PDOC ---
Discharge Summary General Date of Admission Jun 15, 2020 at 22:49 Date of Discharge 06/29/2020 Discharge Summary PROCEDURES PERFORMED DURING STAY: Right hip hemiarthroplasty (06/17) with Dr. Felisha Flores ADMITTING DIAGNOSES / DISCHARGE DIAGNOSES: Fall of unclear cause - possibly 2/2 gait instability Right hip fracture & L1 fx HTN NIDDM2 Asthma / COPD Seizure Disorder Anxiety Osteoporosis DVT prophylaxis COMPLICATIONS/CHIEF COMPLAINT: Right Hip Pain HISTORY OF PRESENT ILLNESS: Patient is an 84 year old female with a PMHx of Dementia, HTN, NIDDM2, Asthma / COPD, Seizure disorder, Chronic headache, who presented to the ED after she was found on the ground. Unclear how long patient was on the ground. Was found to have a right hip fracture and was admitted to the hospitalist service for further evaluation and treatment. Orthopedic surgery was called on consultation. HOSPITAL COURSE: Fall of unclear cause - possibly 2/2 gait instability - Patient is legally blind - Cleared by PT for continued rehabilitation Right hip fracture & L1 fx - s/p hemiarthroplasty (06/17) - c/w full anticoagulation with Xarelto HTN - BP well controlled - c/w Amlodipine with holding parameters NIDDM2 - Glucose levels remains well controlled without medications Asthma / COPD - No evidence of exacerbation - c/w inhaled therapy as ordered Seizure Disorder - c/w Divalproex Anxiety - c/w Hydroxyzine PRN Osteoporosis - c/w Calcium / Vitamin D DVT prophylaxis - c/w full anticoagulation with Xarelto DISCHARGE MEDICATIONS: Please see below. ALLERGIES: Please see below. PHYSICAL EXAMINATION ON DISCHARGE: Vitals (See below) General: Lying in bed, not appear to be in any acute distress, is oriented to person, place and time HEENT: NC, AT CVS: RRR, +S1S2 Lungs: Fair air entry b/l, auscultation is free of rhonchi, rales or wheezing Abdomen: Soft, nondistended and nontender Extremities: Lower extremities are free of any edema, - Calf tenderness LABORATORY DATA: Please see below IMAGING: Xray pelvis IMPRESSION: Impacted nondisplaced fracture of the right subcapital femoral neck. Xray femur IMPRESSION: Nondisplaced impacted fracture of the right subcapital femoral neck. Xray chest IMPRESSION: No acute abnormality. Xray fib/tib IMPRESSION: No fracture. CT cervical spine IMPRESSION: 1. Degenerative spondylosis of the cervical spine. 2. No acute fracture. CT head IMPRESSION: No acute abnormality. CT abd/pelvis IMPRESSION: 1. No acute abdominopelvic process. 2. Impacted nondisplaced fracture of the right subcapital femoral neck. 3. Mild compression fracture deformity of the superior endplate of L1 is of uncertain age but new compared to a prior CT scan of the chest performed on 01/03/2016. Consider evaluation with MRI for evaluation of fracture age as clinically indicated. ACTIVITY: [As tolerated]. DISCHARGE PLAN: Follow-up with primary care provider and orthopedic surgery within 7 days Remain compliant with treatment plan and medications Return to the ER if you experience any problems DISPOSITION: [facility] area [facility] DISCHARGE CONDITION: [Stable]. TIME SPENT ON DISCHARGE: 35 minutes Vital Signs/I&Os Vital Signs Date Time Temp Pulse Resp B/P (MAP) Pulse Ox O2 Delivery O2 Flow Rate FiO2 06/29/20 08:33 93 130/64 06/29/20 06:00 98.7 17 97 Room Air I&O- Last 24 Hours up to 6 AM 06/29/20 06:00 Intake Total 720 ml Output Total 900 ml Balance -180 ml Laboratory Data Labs 24H Laboratory Tests 2 06/29/20 05:32: Nucleated Red Blood Cells % (auto) 0.0, Anion Gap 9, Glomerular Filtration Rate > 60.0, Calcium Level 8.4L, Magnesium Level 1.9, C-Reactive Protein, Quantitative 2.36H CBC/BMP Laboratory Tests 06/29/20 05:32 Microbiology Microbiology 06/28/20 Respiratory Virus Panel (PCR) (NEISHA) - Final, Complete 06/27/20 Urine Culture - Final, Complete 06/27/20 Blood Culture - Preliminary, Resulted No growth after 24 hours . All specim... 06/27/20 Blood Culture - Preliminary, Resulted No growth after 24 hours . All specim... 06/25/20 Urine Culture - Final, Complete Escherichia Coli Discharge Medications Scheduled Amlodipine Besylate (Amlodipine Besylate) 2.5 Mg Tablet, 2.5 MG PO DAILY Calcium/Vitamin D (Calcium 500-Vit D3 200 Tablet) 1 Each Tablet, 500 MG PO BID Divalproex Sodium (Depakote ER) 500 Mg Tab.er.24h, 500 MG PO DAILY Levofloxacin (Levaquin) 500 Mg Tablet, 500 MG PO DAILY@06 Polyethylene Glycol 3350 (Polyethylene Glycol 3350) 17 Gm Powd.pack, 1 PKT PO DAILY Rivaroxaban (Xarelto) 10 Mg Tablet, 10 MG PO DAILY Scheduled PRN Tramadol HCl (Tramadol HCl) 50 Mg Tablet, 1-2 TAB PO Q4H PRN for PAIN Allergies Coded Allergies: Egg Derived (Verified Allergy, Unknown, 02/09/19) Influenza Virus Vaccines (Verified Allergy, Unknown, 02/09/19) Penicillins (Verified Allergy, Unknown, 02/09/19) egg (Verified Allergy, Unknown, 02/09/19) latex (Verified Allergy, Unknown, 02/09/19) milk (Verified Allergy, Unknown, 02/09/19) sulfur dioxide (Verified Allergy, Unknown, 02/09/19) NIKKI TRINH MD Jun 29, 2020 10:55
[2020-06-29] MEDS ORDERED: TRAM50TA2 PO (11:10)
--- NOTE | 2020-07-08 15:06 | RO ---
DATE OF PROCEDURE: 06/16/2020 PREOPERATIVE DIAGNOSIS: Right hip fracture, femoral neck Garden II POSTOPERATIVE DIAGNOSIS: Right hip fracture, femoral neck Garden II PROCEDURE: Right hip hemiarthroplasty using a DePuy Barnes cemented size 2 stem, plus 0 neck, 45 head. SURGEON: Get Flores MD GLOST KILN OPERATOR: Jose G Staples MD ANESTHESIA: Spinal. ESTIMATED BLOOD LOSS: 100 ml CONSULTATIONS: None. INDICATIONS: This is an 84-year-old who fell yesterday injuring her right hip. She sustained a femoral neck fracture. She had what appeared to be notable osteopenia and I felt that hemiarthroplasty would be the most appropriate. I talked to her and her about this and the nature and the risks of bleeding, infection, damage to nerve vessels, persistent pain, wear loosening, dislocation, leg length inequality, blood clots, medical problems, among others. The speech correction assistant was instrumental in holding retractors and assisting in reducing and dislocating the hip and assisting in mixing the bone cement and wound closure. PROCEDURE: The patient was taken to the operating room, placed in the left lateral decubitus position on the [place] Positioner after spinal anesthesia was induced. The right hip was prepped and draped in the usual sterile fashion. Time-out was performed and a longitudinal incision was made over the lateral aspect of the hip. Sharp dissection was carried down through subcutaneous tissue. Controlled hemostasis with the cautery. Incised the fascia darya and then divided the anterior 40% of the abductor off down to the labrum and gradually exposed the proximal femur down to the lesser trochanter. We put the leg in the bag. I used the canal initiating reamer, the canal finding reamer, the lateralizing reamer and then made the neck cut at about a half fingerbreadth up from the lesser trochanter using a broach as a template. The femoral head was then extracted with the corkscrew without difficulty. I then broached and a size 2 broach fit very nicely. I countersunk it slightly and used the Calcar Planer, was very pleased with the fit and filled this and decided not to try to go up to a 3 as it was unlikely to fit and I was concerned about fracture. We then trialed off this with the plus 045 head and neck combination and this was very stable, had an excellent range of motion with excellent stability and flexion, internal rotation and extension external rotation, that was minimal shuck in full extension. We dislocated the hip, remove the trial components, selected those components with the appropriate Cementrializer and a size 3 cement restrictor. I then prepared the canal. I irrigated and brushed, placed the epinephrine soaked vaginal pack, followed by dry sponges and I placed the cement restrictor down at an appropriate distant to be just beyond the stem. The speech correction assistant mixed the bone cement in the modern technique. Then retrograde filled the canal and pressurized it. Placed the stem down in the appropriate amount of anteversion, which was basically controlled by the proximal femur. The cement hardened and we impacted on the neck and head, which was a 45 plus 0. We made sure this was well seated and then we reduced the hip. Again, put the hip through range of motions, very pleased with the stability, range of motion, soft tissue tension. I then irrigated, repaired the minimus with 1-Vicry suture, the abductor with 1-Vicryl suture through several bony holes and 20 cc of 40% Marcaine were placed in the deep tissues. Then repaired the fascia darya with 1-Vicryl suture and running STRATAFIX suture in both directions. Subcutaneous was closed with 2-0 Vicryl, skin with riky and a sterile dressing was applied. She was taken to the recovery room in stable condition. There were known complications. The plan will be routine postop. We will allow weightbearing as tolerated. I discussed this with the following the procedure. MARIA FERNANDA
== END 2020-06-29 14:35 | DRG 470 ==
LOC: EDBD 17:06 → M ED 17:06 → M ED INP 22:49 → ENRESERV 23:45 → M MSPAV 06-16 01:04 → M MS5PR 06-16 18:39
PROVIDERS: ADMIT Internal Medicine; ATTEND Internal Medicine
PROC: 0SRR0J9 Replacement of Right Hip Joint, Femoral Surface with Synthetic Substitute, Cemented, Open Approach (ICD-10-PCS; principal; 2020-06-16 13:00)
DX: S72.011A Unspecified intracapsular fracture of right femur, initial encounter for closed fracture (principal); Z68.1 Body mass index [BMI] 19.9 or less, adult; S32.019A Unspecified fracture of first lumbar vertebra, initial encounter for closed fracture; W19.XXXA Unspecified fall, initial encounter; Y92.018 Other place in single-family (private) house as the place of occurrence of the external cause; Y99.8 Other external cause status; F03.90 Unspecified dementia, unspecified severity, without behavioral disturbance, psychotic disturbance, mood disturbance, and anxiety; I10 Essential (primary) hypertension; J44.9 Chronic obstructive pulmonary disease, unspecified; G40.909 Epilepsy, unspecified, not intractable, without status epilepticus; R51 Headache; H35.30 Unspecified macular degeneration; R26.89 Other abnormalities of gait and mobility; F41.9 Anxiety disorder, unspecified; H54.8 Legal blindness, as defined in USA; M81.0 Age-related osteoporosis without current pathological fracture; Z66 Do not resuscitate; I08.1 Rheumatic disorders of both mitral and tricuspid valves; E11.9 Type 2 diabetes mellitus without complications; Z90.49 Acquired absence of other specified parts of digestive tract; Z85.43 Personal history of malignant neoplasm of ovary; Z88.0 Allergy status to penicillin; Z88.7 Allergy status to serum and vaccine; Z91.012 Allergy to eggs; Z91.011 Allergy to milk products; Z91.040 Latex allergy status; Z88.8 Allergy status to other drugs, medicaments and biological substances; Z87.891 Personal history of nicotine dependence

== ENCOUNTER 2020-08-30 09:24 | Observation (INO) | payer MEDICARE ==
[~2020-08-30] VITALS: Ht 162.6 cm; Wt 48.1 kg
[~2020-08-30 09:24] MED LIST changes: +AMLO25TA PO; +CALCD50TA PO; +DIVALPROEX 500MG *ER* TAB PO SCH; +LEVA1TAB2 PO; +PEG1POW PO; +TRAM50TA2 PO; +XARE10TA PO
[2020-08-30 10:35] LABS: VENOUS BASE EXCESS 0.8 (-2.0-2.0); VENOUS O2 SATURATION 79.2 % (60.0-80.0); VENOUS PARTIAL PRESSURE CO2 44.2 mmHg (38.0-50.0); VENOUS PARTIAL PRESSURE O2 44.4 mmHg (30.0-50.0); VENOUS PH 7.388 UNITS (7.330-7.430); VENOUS STANDARD HCO3 24.8 MEQ/L; VENOUS TOTAL CO2 27.4 MEQ/L (24.0-28.0)
[2020-08-30 10:44] LABS: BASO % 0.5 % (0.0-1.0); EOS # 0.1 10^3/uL (0.0-0.5); EOS % 3.8 % (0.0-3.0); HEMATOCRIT 33.3 % (36.0-47.0); HEMOGLOBIN 10.3 g/dl (12.0-15.5); LYMPH # 0.9 10^3/uL (1.5-5.0); LYMPH % 25.3 % (24.0-44.0); MEAN CORPUSCULAR HEMOGLOBIN 27.7 pg (27.0-33.0); MEAN CORPUSCULAR HGB CONC 30.9 g/dl (32.0-36.5); MEAN CORPUSCULAR VOLUME 89.5 fl (80.0-96.0); MONO # 0.3 10^3/uL (0.0-0.8); MONO % 7.4 % (0.0-5.0); NEUTROPHILS # 2.3 10^3/uL (1.5-8.5); NEUTROPHILS % 62.7 % (36.0-66.0); PLATELET COUNT, AUTOMATED 223 10^3/uL (150-450); RED BLOOD COUNT 3.72 10^6/uL (4.00-5.40); WHITE BLOOD COUNT 3.7 10^3/uL (4.0-10.0)
--- NOTE | 2020-08-30 10:50 | REPVR ---
PROCEDURE INFORMATION: Exam: CT Head Without Contrast Exam date and time: 08/30/2020 10:20 AM Age: 84 years old Clinical indication: Other: Seizure TECHNIQUE: Imaging protocol: Computed tomography of the head without contrast. Radiation optimization: All CT scans at this facility use at least one of these dose optimization techniques: automated exposure control; mA and/or kV adjustment per patient size (includes targeted exams where dose is matched to clinical indication); or iterative reconstruction. COMPARISON: CT Head without contrast 06/15/2020 7:38 PM FINDINGS: Brain: There is no acute intracranial hemorrhage or mass effect. Moderate diffuse volume loss is within the range of normal for patient age. There are small vessel ischemic changes within the periventricular and subcortical white matter, but the normal lee-white matter delineation is maintained. Cerebral ventricles: Prominence of the ventricular system is commensurate with volume loss. Bones/joints: Unremarkable. No acute fracture. Paranasal sinuses: Visualized sinuses are unremarkable. No fluid levels. Mastoid air cells: Visualized mastoid air cells are well aerated. Soft tissues: Unremarkable. IMPRESSION: No acute hemorrhage or edema. Electronically signed by: Caryn Pelayo On 08/30/2020 10:49:56 AM
[2020-08-30] MEDS ORDERED: LORazepam 2 MG/ML VIAL IV STA (10:57)
[2020-08-30 11:19] LABS: ALBUMIN 3.4 GM/DL (3.2-5.2); ALT/SGPT 11 U/L (12-78); BILIRUBIN,DIRECT 0.1 MG/DL (0.0-0.2); BILIRUBIN,TOTAL 0.7 MG/DL (0.2-1.0); BLOOD UREA NITROGEN 7 MG/DL (7-18); CALCIUM LEVEL 9.3 MG/DL (8.8-10.2); CARBON DIOXIDE LEVEL 27 MEQ/L (21-32); CHLORIDE LEVEL 108 MEQ/L (98-107); CREATININE FOR GFR 0.48 MG/DL (0.55-1.30); GLOMERULAR FILTRATION RATE > 60.0 (>32); GLUCOSE, FASTING 94 MG/DL (70-100); POTASSIUM SERUM 4.3 MEQ/L (3.5-5.1); SODIUM LEVEL 141 MEQ/L (136-145); TOTAL PROTEIN 6.6 GM/DL (6.4-8.2); VALPROIC ACID (DEPAKOTE) < 3.0 UG/ML (50.0-100.0)
[2020-08-30] MEDS ORDERED: LORazepam 2 MG/ML VIAL As Ordered ONE (11:20)
[2020-08-30] MEDS ORDERED: AMLO2.5T3 PO (12:14)
[2020-08-30] MEDS ORDERED: DIVA500T9 PO (12:14)
[2020-08-30] MEDS ORDERED: ATIV1TAB10 PO (12:14)
[2020-08-30] MEDS ORDERED: XARE10TA PO (12:14)
[2020-08-30] MEDS ORDERED: PATIENT COMMENT (12:15)
[2020-08-30] MEDS ORDERED: LORazepam 0.5 MG TAB PO PRN (14:30)
[2020-08-30 15:22] VITALS: BP 113/66
[2020-08-30] MEDS ORDERED: VALPROATE SOD INJ 500 MG in D5W 50 ML IV SCH (15:45)
--- NOTE | 2020-08-30 16:22 | HPEPDOC ---
General Date of Admission Aug 30, 2020 at 09:25 Date of Service: Aug 30, 2020 Chief Complaint The patient is a 84-year-old female admitted with a reason for visit of Seizure,Toxic Metabolic Encephalopathy. Source: Family History of Present Illness Mrs. Elliott is an 84 year old female with seizure disorder who is here after having a seizure. This morning, she was in good health. She was ambulatory and had a cup of coffee. She went to lie down on the couch. The daughter, Abby Bailey ([phone]) said bye to her, but she didn't respond. She looked at her mother and then said she was having another seizure and called EMS. While in the ED, she was agitated and struck at a nurse. She was given Ativan. When I was in the room, she was sound asleep with present. Last seizure was about 3 to 4 months ago and daughter manages mediations. Patient reported some sacral pain and intermittent dysuria. Denies chest pain, abdominal pain, or dyspnea. She could not remember what happened this morning. She did not want to go through the rest of the ROS and ended up sleeping instead. I tried to reach out to her daughter, but only reached voice mail. says that the only medication she was on was the seizure medication. He was not aware of the antihypertensive or the blood thinner. Valproic acid level was undetectable, so unsure if she has been taking the medication regularly. Contacted Neurology, Dr. Rivera. She was a patient of theirs (they had her at 1935) and was last seen on 2015. At that time she was on Depakote 500mg BID. They had an appointment on March 2019, but she no showed. She would need a referral to see them again. Later in the afternoon, she woke up and her was not at bedside. She was disorientated and was pulling at lines. Sitter was ordered Home Medications Scheduled Amlodipine Besylate (Amlodipine Besylate) 2.5 Mg Tablet, 2.5 MG PO DAILY, (Reported) Divalproex Sodium (Divalproex Sodium ER) 500 Mg Tab.er.24h, 500 MG PO DAILY, (Reported) Rivaroxaban (Xarelto) 10 Mg Tablet, 10 MG PO DAILY, (Reported) Scheduled PRN Lorazepam (Ativan) 0.5 Mg Tablet, 0.5 MG PO BID PRN for ANXIETY, (Reported) Miscellaneous Medications [Patient Comment] , (Reported) UNABLE TO VERIFY MEDICATIONS WITH PATIENT OR FAMILY - MED LIST OBTAINED FROM PHARMACY. Allergies Coded Allergies: Egg Derived (Verified Allergy, Unknown, 02/09/19) Influenza Virus Vaccines (Verified Allergy, Unknown, 02/09/19) Penicillins (Verified Allergy, Unknown, 02/09/19) egg (Verified Allergy, Unknown, 02/09/19) latex (Verified Allergy, Unknown, 02/09/19) milk (Verified Allergy, Unknown, 02/09/19) sulfur dioxide (Verified Allergy, Unknown, 02/09/19) Past Medical History Medical History 1. Legally blind (macular degeneration) 2. Seizure disorder 3. Migraines 4. HLD 5. HTN 6. COPD 7. Depression Surgical History 1. Cataract surgery 2. Left mastoid surgery 3. Tonsillectomy 4. Liposuction and tummy tuck 5. Appendectomy 6. Total hysterectomy (for uterine cancer) 7. Left arm and shoulder surgery 8. Right hip arthroplasty Family History Unable to obtain as patient was lethargic when seen Social History * Smoker: Denies (From chart) Alcohol: Denies (From chart) A-FIB/CHADSVASC A-FIB History Current/History of A-Fib/PAF?: No Review of Systems Constitutional: Reports: Lethargy Eyes: Denies: Redness ENT: Denies: Head Aches Pulmonary: Denies: Dyspnea Cardiovascular: Denies: Chest Pain Gastrointestinal: Denies: Abdominal Pain Genitourinary: Reports: Dysuria (intermittently) Musculoskeletal: Reports: Other Symptoms (Pain in the sacral area); Denies: Leg Pain Neurological: Reports: Confusion Psych: Reports: Memory Issues (Could not remember what happened this morning) Physical Examination General Exam: Negative: Alert, Cooperative Eye Exam: Negative: Sclera icteric ENT Exam: Positive: Atraumatic Neck Exam: Negative: thyromegaly Chest Exam: Positive: Clear to auscultation Heart Exam: Positive: Rate Normal, Regular Rhythm Abdomen Exam: Positive: Normal bowel sounds, Soft; Negative: Tenderness Extremity Exam: Positive: Edema (Unilateral, left leg) Neuro Exam: Positive: Other (Unable to assess as she was not following command s) Psych Exam: Negative: Mental status NL Vital Signs Vital Signs Date Time Temp Pulse Resp B/P (MAP) Pulse Ox O2 Delivery O2 Flow Rate FiO2 08/30/20 15:22 98.1 85 20 113/66 (82) 98 08/30/20 13:31 Room Air 08/30/20 13:30 10.0 35 Laboratory Data Labs 24H Laboratory Tests 2 08/30/20 10:16: Immature Granulocyte % (Auto) 0.3, Neutrophils (%) (Auto) 62.7, Lymphocytes (%) (Auto) 25.3, Monocytes (%) (Auto) 7.4H, Eosinophils (%) (Auto) 3.8H, Basophils (%) (Auto) 0.5, Neutrophils # (Auto) 2.3, Lymphocytes # (Auto) 0.9L, Monocytes # (Auto) 0.3, Eosinophils # (Auto) 0.1, Basophils # (Auto) 0.0, Nucleated Red Blood Cells % (auto) 0.0, Blood Gas Bicarbonate Standard 24.8, Venous Blood pH 7.388, Venous Blood Partial Pressure CO2 44.2, Venous Blood Partial Pressure O2 44.4, Venous Blood Total Carbon Dioxide 27.4, Venous Blood HCO3 26.0, Venous Blood Oxygen Saturation 79.2, Venous Blood Base Excess 0.8, Anion Gap 6L, Glomerular Filtration Rate > 60.0, Lactic Acid Level 1.0, Calcium Level 9.3, Total Bilirubin 0.7, Direct Bilirubin 0.1, Aspartate Amino Transf (AST/SGOT) 32, Alanine Aminotransferase (ALT/SGPT) 11L, Alkaline Phosphatase 100, Total Protein 6.6, Albumin 3.4, Albumin/Globulin Ratio 1.1L, Thyroid Stimulating Hormone (TSH) 1.780, Valproic Acid (Depakene) Level < 3.0L 08/30/20 10:23: POC Glucose (Misc Panel) 98, POC Sodium (Misc Panel) 140, POC Potassium (Misc Panel) 3.7, POC Chloride (Misc Panel) 104, POC Total CO2 (Misc Panel) 23.0, POC Blood Urea Nitrogen (Misc Panel 5L, POC Ionized Calcium (Misc Panel) 4.9, POC Creatinine (Misc Panel) 0.5L, POC Hematocrit (Misc Panel) 34.0L 08/30/20 10:25: POC Troponin I (Misc) 0.01 08/30/20 10:33: Bedside Glucose (Misc Panel) 82L 08/30/20 13:16: Coronavirus (COVID-19)(PCR) NEGATIVE CBC/BMP Laboratory Tests 08/30/20 10:16 Assessment/Plan Mrs. Elliott is an 84 year old female with seizure disorder here for a seizure event. Unable to reach daughter (Abby Bailey [phone]) about seizure event. and neurologist are familiar with these events where she would stare into space. Valproic acid was undetectable. Question compliance. Will start on home dose here. Seizure precautions and monitor overnight. She would need a new referral to see neurology again. Plan / VTE VTE Prophylaxis Ordered?: Yes Plan Plan 1. Seizure disorder with acute event -Question compliance and levels are undetectable -Daughter manages medication. says only medication she is on is for her seizures -Followed neurology in the past, lost to follow up. Needs new referral to be seen by neurology -Restart Depakote 500mg qD 2. Toxic metabolic encephalopathy -Agitated and confused in the ED -May be secondary to post-ital, Ativan, delirium -Pending UA -Sitter and supportive care 3. History of right hip arthroplasty -Had right hip done in 06/2020 -On Xarelto for hip arthroplasty DVT ppx. -Beyond 30 days, will hold Xarelto 4. Hypertension - says only medication she on is seizure medication. Will hold amlodipine as her BP is controlled 5. Left leg swelling -Left leg appears to have pitting edema and more swelling than the right - left leg 6. DVT ppx -TEDs Disposition: Monitor overnight. If no seizures overnight, possible discharge tomorrow with neurology referral. GOSIA BAE DO Aug 30, 2020 16:22
--- NOTE | 2020-08-30 17:13 | REP ---
INDICATION: left leg swelling and pitting edema COMPARISON: None. TECHNIQUE: Real time compression and duplex Doppler interrogation of the left lower extremity deep venous system is performed. FINDINGS: The left common femoral, superficial femoral and popliteal veins are fully compressible with transducer pressure and demonstrate normal spontaneous and phasic flow, without evidence of deep venous thrombosis. IMPRESSION: No evidence of deep venous thrombosis of the left lower extremity femoral popliteal venous system. <Electronically signed by Trace Rocha > 08/30/20 [id number]
[2020-08-30 22:00] VITALS: BP 122/64
--- NOTE | 2020-08-30 23:54 | ECGEPIP ---
[facility] - ED Test Date: 2020-08-30 Pat Name: HENRY MULLIGAN Department: Room: - Gender: Female [employer]: : 1935 Requested By: RAGHAVENDRA Hodges Order Number: [id number] Reading MD: Rivas Larsen Measurements Intervals [place] Rate: 92 P: 75 AR: 163 QRS: 63 QRSD: 86 T: 76 QT: 385 QTc: 479 Interpretive Statements SINUS RHYTHM NSTTW ABNORMALITY(S) SIMILAR TO 06/15/20 Electronically Signed on 08-30-2020 23:54:04 EST by Rivas Larsen
[2020-08-31 06:00] VITALS: BP 119/64
[2020-08-31 06:47] LABS: HEMATOCRIT 33.5 % (36.0-47.0); HEMOGLOBIN 10.3 g/dl (12.0-15.5); MEAN CORPUSCULAR HEMOGLOBIN 27.5 pg (27.0-33.0); MEAN CORPUSCULAR HGB CONC 30.7 g/dl (32.0-36.5); MEAN CORPUSCULAR VOLUME 89.6 fl (80.0-96.0); PLATELET COUNT, AUTOMATED 220 10^3/uL (150-450); RED BLOOD COUNT 3.74 10^6/uL (4.00-5.40); WHITE BLOOD COUNT 4.3 10^3/uL (4.0-10.0)
[2020-08-31 07:19] LABS: BLOOD UREA NITROGEN 9 MG/DL (7-18); CALCIUM LEVEL 9.2 MG/DL (8.8-10.2); CARBON DIOXIDE LEVEL 27 MEQ/L (21-32); CHLORIDE LEVEL 109 MEQ/L (98-107); CREATININE FOR GFR 0.58 MG/DL (0.55-1.30); GLOMERULAR FILTRATION RATE > 60.0 (>32); GLUCOSE, FASTING 81 MG/DL (70-100); POTASSIUM SERUM 3.8 MEQ/L (3.5-5.1); SODIUM LEVEL 142 MEQ/L (136-145)
[2020-08-31] MEDS ORDERED: diphenhydrAMINE CREAM 30GM TOP PRN (08:45)
[2020-08-31] MEDS ORDERED: DIVALPROEX 500MG *ER* TAB PO SCH (09:00)
--- NOTE | 2020-08-31 10:08 | DS.PDOC ---
Discharge Summary General Date of Admission Aug 30, 2020 at 09:25 Date of Discharge August 31, 2020 Attending Physician: MIGUEL A JORDAN MD Discharge Summary PROCEDURES PERFORMED DURING STAY: None. ADMITTING DIAGNOSES: 1. Seizure Disorder. 2. Legally blind (macular degeneration) 3. HLD 4. HTN 5. COPD 6. Depression DISCHARGE DIAGNOSES: 1. Seizure Disorder. 2. Legally blind (macular degeneration) 3. HLD 4. HTN 5. COPD 6. Depression COMPLICATIONS/CHIEF COMPLAINT: Seizure. HISTORY OF PRESENT ILLNESS: Earl is an 84yo female with a history of seizures. On Aug 30, sometime after breakfast with her family, she laid down on the couch and become unresponsive. The family realized that she was having a seizure, and brought her to the ED at [facility]. The family rep orted that her last seizure had been 3-4 months prior. There appeared to be some miscommunication between he family members regarding the patient's medications, as the was not aware that she was on Amlodipine or Xarelto. HOSPITAL COURSE: The patient was somewhat agitated on admission and she was given Ativan for sedation. On interview the patient was a poor historian but she reported some sacral pain and intermittent dysuria. She was given her prescribed Depakote, and admitted for observation. Her valproic acid levels on toxicology screen were negative, so it is unclear if the patient had been taking her medications at home. Dr. Roy was contacted as he was her Neurologist and reports that the patient stopped showing up for her appointments in early 2018. Over the course of her stay she did not have any other seizures, and a CT scan of her head showed no acute abnormalities (see imaging). Patient was restarted on Depakote and Xarelto as prescribed as well as other home medications as documented, this was discussed with family and they voiced understanding. The patient was not taking her home Depakote because the pills were too large so she was switched to Depakote sprinkles. Of note, the patient must remain on Xarelto until September 15, 2020 to complete her total course of anticoagulation post hip- replacement. The patient was referred to Neurology on discharge. DISCHARGE MEDICATIONS: Please see below. ALLERGIES: Please see below. PHYSICAL EXAMINATION ON DISCHARGE: VITAL SIGNS: Please see below. GENERAL: The patient is sitting upright in a chair, hunched over. She has an increased thoracic kyphosis, and states that she is extremely itchy. HEENT: Pupils are equal and round, but not reactive to light or accommodation. Mucus membranes are moist. The patient has dentures for both the maxillary and mandibular teeth. NECK: Neck is supple. No masses are felt on swallowing. CARDIOVASCULAR EXAMINATION: RRR, S1, S2 and S4 sounds were noted on auscultation of the 5th ICS midsternal and midclavicular line. No rubs or gallops were noted. Capillary refill <2s in both hands. Radial pulses are equal. RESPIRATORY EXAMINATION: Lung sounds are clear to auscultation bilaterally. There are no rales, wheezing or rhonchi noted. EXTREMITIES: There is no edema in the legs b/l. The 3rd-5th fingers on her L hand are flexed and cannot be passively extended. SKIN: There is a mildly red, pruritic rash on her back b/l that developed sometime after admission NEUROLOGICAL EXAMINATION: She is legally blind, and cannot track my finger for eye testing. She does not understand when asked to move her eyes up and to the left. Her pupils are unreactive to light b/l. She says she cannot blink on command, but she does blink throughout interview. She has decreased hearing on the R side. She cannot raise her eyebrows or puff her cheeks on command, but does smile and frown when asked. Her tongue points to the right, and she cannot move her tongue to the left when asked. The uvula is deviated to the L. PSYCHIATRIC EXAMINATION: She is AOx2. She was not oriented to time, and when asked what year it was started with "19" before trailing off.The patient is quite pleasant but frequently becomes distressed when she talked about the absence of her during her stay. She appears to have some mild dementia. LABORATORY DATA: Please see below. IMAGING: Aug 30, head CT, Dr. Pelayo "IMPRESSION: No acute hemorrhage or edema." Aug 30 Lower Extremity Vascular US. Dr. Rocha. "IMPRESSION: No evidence of deep venous thrombosis of the left lower extremity femoral popliteal venous system." PROGNOSIS: fair ACTIVITY: As tolerated. DIET: As tolerated. DISCHARGE PLAN: She will be discharged home DISCHARGE INSTRUCTIONS: 1. Ensure that that the patient is receiving her medications at home. 2. Transition her Depakote from pills to sprinkles for easier consumption. 3. Followup with PCP for discharge FU in 7-10d. 4. Follow up with Neurology within 7 days ITEMS TO FOLLOWUP ON ON OUTPATIENT: None DISCHARGE CONDITION: Stable. TIME SPENT ON DISCHARGE: 25 minutes. Vital Signs/I&Os Vital Signs Date Time Temp Pulse Resp B/P (MAP) Pulse Ox O2 Delivery O2 Flow Rate FiO2 08/31/20 06:00 98.0 90 20 119/64 (82) 97 08/30/20 13:31 Room Air 08/30/20 13:30 10.0 35 I&O- Last 24 Hours up to 6 AM 08/31/20 06:00 Intake Total 60 ml Output Total 150 ml Balance -90 ml Laboratory Data Labs 24H Laboratory Tests 2 08/30/20 10:16: Immature Granulocyte % (Auto) 0.3, Neutrophils (%) (Auto) 62.7, Lymphocytes (%) (Auto) 25.3, Monocytes (%) (Auto) 7.4H, Eosinophils (%) (Auto) 3.8H, Basophils (%) (Auto) 0.5, Neutrophils # (Auto) 2.3, Lymphocytes # (Auto) 0.9L, Monocytes # (Auto) 0.3, Eosinophils # (Auto) 0.1, Basophils # (Auto) 0.0, Nucleated Red Blood Cells % (auto) 0.0, Blood Gas Bicarbonate Standard 24.8, Venous Blood pH 7.388, Venous Blood Partial Pressure CO2 44.2, Venous Blood Partial Pressure O2 44.4, Venous Blood Total Carbon Dioxide 27.4, Venous Blood HCO3 26.0, Venous Blood Oxygen Saturation 79.2, Venous Blood Base Excess 0.8, Anion Gap 6L, Glomerular Filtration Rate > 60.0, Lactic Acid Level 1.0, Calcium Level 9.3, Total Bilirubin 0.7, Direct Bilirubin 0.1, Aspartate Amino Transf (AST/SGOT) 32, Alanine Aminotransferase (ALT/SGPT) 11L, Alkaline Phosphatase 100, Total Protein 6.6, Albumin 3.4, Albumin/Globulin Ratio 1.1L, Thyroid Stimulating Hormone (TSH) 1.780, Valproic Acid (Depakene) Level < 3.0L 08/30/20 10:23: POC Glucose (Misc Panel) 98, POC Sodium (Misc Panel) 140, POC Potassium (Misc Panel) 3.7, POC Chloride (Misc Panel) 104, POC Total CO2 (Misc Panel) 23.0, POC Blood Urea Nitrogen (Misc Panel 5L, POC Ionized Calcium (Misc Panel) 4.9, POC Cr eatinine (Misc Panel) 0.5L, POC Hematocrit (Misc Panel) 34.0L 08/30/20 10:25: POC Troponin I (Misc) 0.01 08/30/20 10:33: Bedside Glucose (Misc Panel) 82L 08/30/20 13:16: Coronavirus (COVID-19)(PCR) NEGATIVE 08/31/20 06:36: Nucleated Red Blood Cells % (auto) 0.0, Anion Gap 6L, Glomerular Filtration Rate > 60.0, Calcium Level 9.2 CBC/BMP Laboratory Tests 08/30/20 10:16 08/31/20 06:36 FSBS Laboratory Tests Test 08/30/20 10:33 Range/Units Bedside Glucose (Misc Panel) 82 83-110 MG/DL Discharge Medications Scheduled Amlodipine Besylate (Amlodipine Besylate) 2.5 Mg Tablet, 2.5 MG PO DAILY, (Reported) Divalproex Sodium (Depakote Sprinkle) 125 Mg Cap., 125 MG PO QID Rivaroxaban (Xarelto) 10 Mg Tablet, 10 MG PO DAILY STOP XARELTO ON SEPTEMBER 15, 2020 Allergies Coded Allergies: Egg Derived (Verified Allergy, Unknown, 02/09/19) Influenza Virus Vaccines (Verified Allergy, Unknown, 02/09/19) Penicillins (Verified Allergy, Unknown, 02/09/19) egg (Verified Allergy, Unknown, 02/09/19) latex (Verified Allergy, Unknown, 02/09/19) milk (Verified Allergy, Unknown, 02/09/19) sulfur dioxide (Verified Allergy, Unknown, 02/09/19) GME ATTESTATION GME ATTESTATION My faculty preceptor for this patient encounter was physically present during the encounter and was fully available. All aspects of the patient interview, examination, medical decision making process, and medical care plan development were reviewed and approved by the faculty preceptor. The faculty preceptor is aware and concurs with the plan as stated in the body of this note and will attest to such by his/her cosignature. ATTENDING NOTE I, Miguel A Jordan, have independently examined this patient and performed my own physical exam, as well as reviewed the documentation and edited where necessary. I have discussed in detail with the resident / student the findings and plan of treatment as documented by the resident / student and edited their note. I agree with their findings and treatment plan and have edited their documentation. I will continue to follow the patient during this hospital stay. Time spent on discharge 25 minutes AIRAM FLEMING Aug 31, 2020 10:08 LINDSEY PAULINO MD Aug 31, 2020 17:22 MIGUEL A JORDAN MD Aug 31, 2020 17:28
[2020-08-31] MEDS ORDERED: XARE10TA PO (11:10)
[2020-08-31] MEDS ORDERED: DEPA1CAP PO (12:02)
--- NOTE | 2020-09-01 12:29 | DS.PDOC ---
Discharge Summary General Date of Admission Aug 30, 2020 at 09:25 Date of Discharge 08/31/2020 Discharge Summary PROCEDURES PERFORMED DURING STAY: None. ADMITTING DIAGNOSES: 1. Seizure Disorder. 2. Legally blind (macular degeneration) 3. HLD 4. HTN 5. COPD 6. Depression DISCHARGE DIAGNOSES: 1. Seizure Disorder. 2. Legally blind (macular degeneration) 3. HLD 4. HTN 5. COPD 6. Depression COMPLICATIONS/CHIEF COMPLAINT: Seizure. HISTORY OF PRESENT ILLNESS: Earl is an 84yo female with a history of seizures. On Aug 30, sometime after breakfast with her family, she laid down on the couch and become unresponsive. The family realized that she was having a seizure, and brought her to the ED at [facility]. The family reported that her last seizure had been 3-4 months prior. There appeared to be some miscommunication between he family members regarding the patient's medications, as the was not aware that she was on Amlodipine or Xarelto. HOSPITAL COURSE: The patient was somewhat agitated on admission and she was given Ativan for sedation. On interview the patient was a poor historian but she reported some sacral pain and intermittent dysuria. She was given her prescribed Depakote, and admitted for observation. Her valproic acid levels on toxicology screen were negative, so it is unclear if the patient had been taking her medications at home. Dr. Roy was contacted as he was her Neurologist and reports that the patient stopped showing up for her appointments in early 2018. Over the course of her stay she did not have any other seizures, and a CT scan of her head showed no acute abnormalities (see imaging). Patient was restarted on Depakote and Xarelto as prescribed as well as other home medications as documented, this was discussed with family and they voiced understanding. The patient was not taking her home Depakote because the pills were too large so she was switched to Depakote sprinkles. Of note, the patient must remain on Xarelto until September 15, 2020 to complete her total course of anticoagulation post hip-replacement. The patient was referred to Neurology on discharge. DISCHARGE MEDICATIONS: Please see below. ALLERGIES: Please see below. PHYSICAL EXAMINATION ON DISCHARGE: VITAL SIGNS: Please see below. GENERAL: The patient is sitting upright in a chair, hunched over. She has an increased thoracic kyphosis, and states that she is extremely itchy. HEENT: Pupils are equal and round, but not reactive to light or accommodation. Mucus membranes are moist. The patient has dentures for both the maxillary and mandibular teeth. NECK: Neck is supple. No masses are felt on swallowing. CARDIOVASCULAR EXAMINATION: RRR, S1, S2 and S4 sounds were noted on auscultation of the 5th ICS midsternal and midclavicular line. No rubs or gallops were noted. Capillary refill <2s in both hands. Radial pulses are equal. RESPIRATORY EXAMINATION: Lung sounds are clear to auscultation bilaterally. There are no rales, wheezing or rhonchi noted. EXTREMITIES: There is no edema in the legs b/l. The 3rd-5th fingers on her L hand are flexed and cannot be passively extended. SKIN: There is a mildly red, pruritic rash on her back b/l that developed sometime after admission NEUROLOGICAL EXAMINATION: She is legally blind, and cannot track my finger for eye testing. She does not understand when asked to move her eyes up and to the left. Her pupils are unreactive to light b/l. She says she cannot blink on command, but she does blink throughout interview. She has decreased hearing on the R side. She cannot raise her eyebrows or puff her cheeks on command, but does smile and frown when asked. Her tongue points to the right, and she cannot move her tongue to the left when asked. The uvula is deviated to the L. PSYCHIATRIC EXAMINATION: She is AOx2. She was not oriented to time, and when asked what year it was started with "19" before trailing off.The patient is quite pleasant but frequently becomes distressed when she talked about the absence of her during her stay. She appears to have some mild dementia. LABORATORY DATA: Please see below. IMAGING: Aug 30, head CT, Dr. Pelayo "IMPRESSION: No acute hemorrhage or edema." Aug 30 Lower Extremity Vascular US. Dr. Rocha. "IMPRESSION: No evidence of deep venous thrombosis of the left lower extremity femoral popliteal venous system." PROGNOSIS: fair ACTIVITY: As tolerated. DIET: As tolerated. DISCHARGE PLAN: Discharged home DISCHARGE INSTRUCTIONS: 1. Ensure that that the patient is receiving her medications at home. 2. Transition her Depakote from pills to sprinkles for easier consumption. 3. Followup with PCP for discharge FU in 7-10d. 4. Follow up with Neurology within 7 days 5. Return to the ER if you experience any problems ITEMS TO FOLLOWUP ON ON OUTPATIENT: None DISCHARGE CONDITION: Stable. TIME SPENT ON DISCHARGE: 25 minutes. Vital Signs/I&Os Vital Signs Date Time Temp Pulse Resp B/P (MAP) Pulse Ox O2 Delivery O2 Flow Rate FiO2 08/31/20 06:00 98.0 90 20 119/64 (82) 97 08/30/20 13:31 Room Air 08/30/20 13:30 10.0 35 I&O- Last 24 Hours up to 6 AM 09/01/20 06:00 Intake Total 60 ml Balance 60 ml Laboratory Data Labs 24H Laboratory Tests 2 09/01/20 07:48: Lab Scanned Report Miscellaneous Lab Discharge Medications Scheduled Amlodipine Besylate (Amlodipine Besylate) 2.5 Mg Tablet, 2.5 MG PO DAILY, (Reported) Divalproex Sodium (Depakote Sprinkle) 125 Mg Cap., 125 MG PO QID Rivaroxaban (Xarelto) 10 Mg Tablet, 10 MG PO DAILY STOP XARELTO ON SEPTEMBER 15, 2020 Allergies Coded Allergies: Egg Derived (Verified Allergy, Unknown, 02/09/19) Influenza Virus Vaccines (Verified Allergy, Unknown, 02/09/19) Penicillins (Verified Allergy, Unknown, 02/09/19) egg (Verified Allergy, Unknown, 02/09/19) latex (Verified Allergy, Unknown, 02/09/19) milk (Verified Allergy, Unknown, 02/09/19) sulfur dioxide (Verified Allergy, Unknown, 02/09/19) NIKKI TRINH MD Sep 01, 2020 12:29
== END 2020-08-31 13:26 | disposition home or self-care (01) ==
LOC: M ED 09:24 → EDBD 09:24 → M ED INP 09:25 → ENRESERV 13:36 → M MSPAV 14:35
PROVIDERS: ADMIT Internal Medicine; ATTEND Internal Medicine
DX: G40.901 Epilepsy, unspecified, not intractable, with status epilepticus (principal); G92 Toxic encephalopathy; H54.8 Legal blindness, as defined in USA; H35.30 Unspecified macular degeneration; R22.42 Localized swelling, mass and lump, left lower limb; I10 Essential (primary) hypertension; E78.49 Other hyperlipidemia; J44.9 Chronic obstructive pulmonary disease, unspecified; F32.9 Major depressive disorder, single episode, unspecified; Z79.899 Other long term (current) drug therapy; Z88.0 Allergy status to penicillin; Z91.040 Latex allergy status; Z91.011 Allergy to milk products; Z91.012 Allergy to eggs; Z88.7 Allergy status to serum and vaccine
CPT/HCPCS: 36415; 70450; 80047; 80048; 80076; 80164; 82803; 83605; 84443; 84484; 85025; 85027; 93005; 93041; 93971; 96374; 99285; G0378; J2060; U0002

== ENCOUNTER 2021-05-09 16:11 | Inpatient (IN) | payer MEDICARE ==
[~2021-05-09] VITALS: Ht 167.6 cm; Wt 45.3 kg
[~2021-05-09 16:11] MED LIST changes: +AMLO2.5T3 PO; +ATIV1TAB10 PO; +DEPA1CAP PO; +DIVA500T9 PO; -DIVALPROEX 500MG *ER* TAB PO SCH; +PATIENT COMMENT; -PEG1POW PO; +POLY17PO18 PO
[2021-05-09] MEDS ORDERED: BOOSTRIX/ADACEL VACCINE (DIPHTH/PERTUSS/ACELL/TETANUS) 0.5ML SYR IM ONE (16:40)
[2021-05-09] MEDS ORDERED: ONDANSETRON 4MG/2ML VIAL IV ONE (17:15)
[2021-05-09] MEDS ORDERED: MORPHINE 2 MG/ML 1ML VIAL (J2270) IV ONE (17:15)
[2021-05-09 17:50] LABS: VENOUS BASE EXCESS 2.3 (-2.0-2.0); VENOUS HCO3 28.1 MEQ/L (23.0-27.0); VENOUS O2 SATURATION 63.3 % (60.0-80.0); VENOUS PARTIAL PRESSURE CO2 49.8 mmHg (38.0-50.0); VENOUS PARTIAL PRESSURE O2 34.7 mmHg (30.0-50.0); VENOUS STANDARD HCO3 25.9 MEQ/L; VENOUS TOTAL CO2 29.7 MEQ/L (24.0-28.0)
--- NOTE | 2021-05-09 17:53 | REPVR ---
PROCEDURE INFORMATION: Exam: CT Cervical Spine Without Contrast Exam date and time: 05/09/2021 4:35 PM Age: 85 years old Clinical indication: Injury or trauma; Fall; Blunt trauma; Additional info: Syncope TECHNIQUE: Imaging protocol: Computed tomography images of the cervical spine without contrast. Radiation optimization: All CT scans at this facility use at least one of these dose optimization techniques: automated exposure control; mA and/or kV adjustment per patient size (includes targeted exams where dose is matched to clinical indication); or iterative reconstruction. COMPARISON: 1. CT Spine,cervical w/o contrast 06/15/2020 7:[address] Chest without contrast 06/27/2020 1:47:43 PM FINDINGS: Bones/joints: Exaggeration of the cervical lordosis. Slight degenerative retrolisthesis of C2 on C3. Mild lower cervical levoconvex scoliosis. No acute fracture seen. Height loss of the T3 and T4 vertebral bodies is chronic, previously demonstrated. Diffuse osseous demineralization. Sclerotic lesion in T1 may represent a bone island. Moderate disc height loss and spondylosis diffusely at C5-C6. There is multilevel uncovertebral arthropathy. No severe central spinal canal stenosis. Multilevel neural foraminal stenoses due to uncovertebral and facet arthropathy. Discs/Spinal canal/Neural foramina: See "Bones/joints" finding. Thyroid: 10 mm nodule in the lower pole of the left thyroid lobe. Lungs: Biapical lung parenchymal scarring. There are pleural-based nodules in the right upper lobe. For example, a 6.2 mm nodule. These are stable since the prior CT chest exam. Prior CT chest stability has been documented. No specific follow-up is indicated. Soft tissues: Unremarkable. IMPRESSION: No cervical spine fracture seen. COMMENTS: Consistent with the [employer]'s Incidental Findings Committee white paper (J Am Ángel Radiol 2015): In patients aged 35 years and older with an incidental thyroid nodule equal to or greater than 1.[address], MRI or extrathyroidal US, further evaluation with dedicated thyroid US is recommended for patients with normal life expectancy and without comorbidities. For smaller nodules without suspicious features, no further evaluation or follow up is recommended. Electronically signed by: Lori Anderson On 05/09/2021 17:53:07 PM
--- NOTE | 2021-05-09 17:56 | REPVR ---
PROCEDURE INFORMATION: Exam: CT Maxillofacial Without Contrast Exam date and time: 05/09/2021 4:35 PM Age: 85 years old Clinical indication: Injury or trauma; Fall; Blunt trauma (contusions or hematomas); Orbit/periorbital; Right; Additional info: Syncope TECHNIQUE: Imaging protocol: Computed tomography images of the face without contrast. Radiation optimization: All CT scans at this facility use at least one of these dose optimization techniques: automated exposure control; mA and/or kV adjustment per patient size (includes targeted exams where dose is matched to clinical indication); or iterative reconstruction. COMPARISON: CT Head without contrast 08/30/2020 10:13 AM FINDINGS: Orbital cavity: Orbits are normal. Globes are unremarkable. Bones/joints: No acute fracture. Paranasal sinuses: Normal. No air-fluid levels. Mastoid air cells: Prior left mastoidectomy. Soft tissues: Right frontal scalp and periorbital soft tissue swelling. IMPRESSION: No facial bone fracture seen. Electronically signed by: Lori Anderson On 05/09/2021 17:56:10 PM
[2021-05-09 17:59] LABS: BASO # 0.1 10^3/uL (0.0-0.2); BASO % 0.6 % (0.0-1.0); EOS # 0.1 10^3/uL (0.0-0.5); EOS % 1.5 % (0.0-3.0); HEMATOCRIT 31.8 % (36.0-47.0); HEMOGLOBIN 9.4 g/dl (12.0-15.5); LYMPH # 0.9 10^3/uL (1.5-5.0); LYMPH % 11.9 % (24.0-44.0); MEAN CORPUSCULAR HEMOGLOBIN 24.4 pg (27.0-33.0); MEAN CORPUSCULAR HGB CONC 29.6 g/dl (32.0-36.5); MEAN CORPUSCULAR VOLUME 82.6 fl (80.0-96.0); MONO # 0.8 10^3/uL (0.0-0.8); MONO % 9.7 % (2.0-8.0); NEUTROPHILS # 5.9 10^3/uL (1.5-8.5); NEUTROPHILS % 75.7 % (36.0-66.0); PLATELET COUNT, AUTOMATED 267 10^3/uL (150-450); RED BLOOD COUNT 3.85 10^6/uL (4.00-5.40); WHITE BLOOD COUNT 7.8 10^3/uL (4.0-10.0)
--- NOTE | 2021-05-09 18:00 | REPVR ---
PROCEDURE INFORMATION: Exam: CT Head Without Contrast Exam date and time: 05/09/2021 4:35 PM Age: 85 years old Clinical indication: Injury or trauma; Fall; Blunt trauma (contusions or hematomas); Additional info: Syncope TECHNIQUE: Imaging protocol: Computed tomography of the head without contrast. Radiation optimization: All CT scans at this facility use at least one of these dose optimization techniques: automated exposure control; mA and/or kV adjustment per patient size (includes targeted exams where dose is matched to clinical indication); or iterative reconstruction. COMPARISON: CT Head without contrast 08/30/2020 10:13 AM FINDINGS: Brain: The brain demonstrates diffuse volume loss. There is white matter hypodensity most consistent with chronic small vessel ischemic change. No visible evolving territorial infarct. No hemorrhage. Cerebral ventricles: The ventricles are enlarged in keeping with volume loss. Paranasal sinuses: Visualized sinuses are unremarkable. No fluid levels. Mastoid air cells: Prior canal wall up left mastoidectomy. Auditory system: There is material in the bilateral external auditory canals which presumably represents cerumen. Bones/joints: No acute calvarial fracture seen. Soft tissues: Right frontal scalp and periorbital soft tissue swelling. IMPRESSION: No acute intracranial abnormality seen. Electronically signed by: Lori Anderson On 05/09/2021 18:00:08 PM
--- NOTE | 2021-05-09 18:12 | REP ---
INDICATION: trauma. COMPARISON: 06/16/2020 portable exam of two views of the right hip TECHNIQUE: AP pelvis and two views right hip FINDINGS: The right hip prosthesis is unchanged from the prior exam. No abnormal periprosthetic lucencies have developed. There is no evidence of an acute fracture, dislocation, or subluxation. There are left hip degenerative changes which are moderate. IMPRESSION: No acute abnormality is identified. Findings as described above. <Electronically signed by Josias Fernandez > 05/09/21 [id number]
--- NOTE | 2021-05-09 18:13 | REP ---
INDICATION: trauma. COMPARISON: None. TECHNIQUE: Four views FINDINGS: There is an oblique fracture through the mid and distal diaphysis of the 5th metacarpal. There is no evidence of an intra-articular component. The bones are markedly demineralized. Degenerative changes seen throughout the hand and wrist. IMPRESSION: Fifth metacarpal fracture and other findings as described above. <Electronically signed by Josias Fernandez > 05/09/21 [id number]
[2021-05-09 18:25] LABS: BLOOD UREA NITROGEN 20 MG/DL (7-18); CALCIUM LEVEL 8.6 MG/DL (8.8-10.2); CARBON DIOXIDE LEVEL 29 MEQ/L (21-32); CHLORIDE LEVEL 111 MEQ/L (98-107); CK-MB VALUE MASS 3.5 NG/ML (<3.6); CPK CREATINE PHOSPHOKINASE 204 U/L (26-192); CREATININE FOR GFR 0.58 MG/DL (0.55-1.30); FREE T4 1.32 NG/DL (0.76-1.46); GLOMERULAR FILTRATION RATE > 60.0 (>32); GLUCOSE, FASTING 109 MG/DL (70-100); MAGNESIUM LEVEL 2.3 MG/DL (1.8-2.4); MB/CK RELATIVE INDEX 1.72 (< OR =4); POTASSIUM SERUM 3.6 MEQ/L (3.5-5.1); SODIUM LEVEL 145 MEQ/L (136-145); THYROID STIMULATING HORMONE 0.282 uIU/ML (0.358-3.740); TROPONIN I < 0.02 NG/ML (< 0.10)
[2021-05-09 18:26] LABS: VALPROIC ACID (DEPAKOTE) < 3.0 UG/ML (50.0-100.0)
[2021-05-09] MEDS ORDERED: DIVA500T9 PO (18:27)
[2021-05-09] MEDS ORDERED: ERGO500029 PO (18:27)
[2021-05-09] MEDS ORDERED: HOME MED LIST COMPLETE! XX SCH (18:30)
[2021-05-09] MEDS ORDERED: ONDANSETRON 4MG/2ML VIAL IV PRN (19:15)
[2021-05-09] MEDS ORDERED: MIRALAX *UNIT DOSE* 17GM PACKET PO PRN (19:15)
[2021-05-09] MEDS ORDERED: MOM 30ML SUSPENSION UDC PO PRN (19:15)
[2021-05-09] MEDS ORDERED: SENOKOT S TAB PO PRN (19:15)
[2021-05-09] MEDS ORDERED: PERCOCET 5MG/325MG TAB PO PRN (19:25)
[2021-05-09] MEDS ORDERED: MORPHINE 2 MG/ML 1ML VIAL (J2270) IV PRN (19:25)
[2021-05-09] MEDS ORDERED: KETOROLAC 30 MG/ML 1ML VIAL IV ONE ×2 (19:25→20:15)
--- NOTE | 2021-05-09 19:25 | HPEPDOC ---
[facility] Medical History & Physical Date of Admission May 09, 2021 Date of Service: May 09, 2021 Attending Physician: HARVEY GAN MD History and Physical CHIEF COMPLAINT: [85 y/o female presents after a fall. c/o generalized pain] HISTORY OF PRESENT ILLNESS: [Patient is a poor historian. This is an 85 y/o female with a pmh of dementia, epilepsy, cad, aortic insufficiency, mitral valve insufficiency, hld, htn, copd, asthma and niddm who presents to our ed 3 days after a fall. Patient tells me that she does not remember falling, but remembers hitting the ground. Patient states that she was walking in her home when she fell. Patient tells me she believes that she tripped and does not think that she was dizzy or had a seizure. Patient cannot remember her last seizure. Patient states that she struck her head. Patient at the time of my exam complains of generalized exam. When asking where her pain is the worst, she replies, "pick a spot." According to family, patient has had reduced mobility d/t her fall and decided to bring her in for evaluation. Patient denies fever, chills, chest pain , sob, abd pain, dysuria, n/v/d/c, pedal edema.] PAST MEDICAL HISTORY: 1. [See HPI PAST SURGICAL HISTORY: 1. [B/l cataract removal]. 2. [Tonsillectomy]. 3. [Liposuction and tummy tuck 4. Appendectomy 5. Hysterectomy 6. Right hip total arthroplasty 7. Unspecified left arm and shoulder repair]. SOCIAL HISTORY: Resides in: [Lives with family] Tobacco use:[Denies] ETOH: [Denies] Illicit drug use: [Denies] FAMILY HISTORY: Reviewed - none pertinent ALLERGIES: Please see below. REVIEW OF SYSTEMS: CONSTITUTIONAL: [Denies fevers, chills]. HEENT: [Denies uri sx]. CARDIOVASCULAR: [Denies chest pain, palpitations]. RESPIRATORY: [Denies sob, wheezing]. GASTROINTESTINAL: [Denies abd pain, n/v/d/c]. GENITOURINARY: [Denies dysuria]. SKIN: [Denies rash]. MUSCULOSKELETAL: [See HPI]. NEUROLOGICAL: [Denies paresthesias, paralysis]. ENDOCRINE: [Hx of DM - not currently on oral therapy or insulin]. HEMATOLOGIC/LYMPHATIC: [Denies easy bruising]. HOME MEDICATIONS: Please see below. PHYSICAL EXAMINATION: VITAL SIGNS: Please see below. GENERAL APPEARANCE: [This is a frail appearing 85 y/o female. She is laying in bed and appears fatigued. She is not in any acute distress.]. HEENT: [Patient has significant ecchymosis around the right eye. EOMI. No scleral icterus. Nares patent. Oral mucosa moist]. CARDIOVASCULAR: [Regular rate, rhythm. No murmurs, rubs, gallops]. LUNGS: [Good air flow b/l. No wheezing, rales, rhonchi]. ABDOMEN: [Soft, nontender]. MUSCULOSKELETAL: [Right hand is in a cast. Fingertips are pink. No joint deformities are noted.]. EXTREMITIES: [No lower leg edema noted. No overlying skin changes. Pulses intact.]. NEUROLOGICAL: [Speech clear. A+Ox3 but confused at times. No focal deficits]. PSYCHIATRIC: [Mood and affect appear appropriate.]. LABORATORY DATA: See below. IMAGING: [CT C spine: central spinal canal stenosis. Multilevel neural foraminal stenoses due to uncovertebral and facet arthropathy. Discs/Spinal canal/Neural foramina: See "Bones/joints" finding. Thyroid: 10 mm nodule in the lower pole of the left thyroid lobe. Lungs: Biapical lung parenchymal scarring. There are pleural-based nodules in the right upper lobe. For example, a 6.2 mm nodule. These are stable since the prior CT chest exam. Prior CT chest stability has been documented. No specific follow-up is indicated. Soft tissues: Unremarkable. IMPRESSION: No cervical spine fracture seen. CT Maxillofacial bones: FINDINGS: Orbital cavity: Orbits are normal. Globes are unremarkable. Bones/joints: No acute fracture. Paranasal sinuses: Normal. No air-fluid levels. Mastoid air cells: Prior left mastoidectomy. Soft tissues: Right frontal scalp and periorbital soft tissue swelling. IMPRESSION: No facial bone fracture seen. CT Head: FINDINGS: Brain: The brain demonstrates diffuse volume loss. There is white matter hypodensity most consistent with chronic small vessel ischemic change. No visible evolving territorial infarct. No hemorrhage. Cerebral ventricles: The ventricles are enlarged in keeping with volume loss. Paranasal sinuses: Visualized sinuses are unremarkable. No fluid levels. Mastoid air cells: Prior canal wall up left mastoidectomy. Auditory system: There is material in the bilateral external auditory canals which presumably represents cerumen. Bones/joints: No acute calvarial fracture seen. Soft tissues: Right frontal scalp and periorbital soft tissue swelling. IMPRESSION: No acute intracranial abnormality seen. Hip/pelvis XR: FINDINGS: The right hip prosthesis is unchanged from the prior exam. No abnormal periprosthetic lucencies have developed. There is no evidence of an acute fracture, dislocation, or subluxation. There are left hip degenerative changes which are moderate. IMPRESSION: No acute abnormality is identified. Findings as described above. Right Hand XR: FINDINGS: There is an oblique fracture through the mid and distal diaphysis of the 5th metacarpal. There is no evidence of an intra-articular component. The bones are markedly demineralized. Degenerative changes seen throughout the hand and wrist. IMPRESSION: Fifth metacarpal fracture and other findings as described above.] MICROBIOLOGY: Please see below. ASSESSMENT: [Patient is a poor historian. This is an 85 y/o female with a pmh of dementia, epilepsy, cad, aortic insufficiency, mitral valve insufficiency, hld, htn, copd, asthma and niddm who presents to our ed 3 days after a fall. Patient tells me that she does not remember falling, but remembers hitting the ground. Patient states that she was walking in her home when she fell. Patient tells me she believes that she tripped and does not think that she was dizzy or had a seizure.]. . PLAN: 1. [Fall - potentially syncopal episode. patient is poor historian and does not remember the event. mechanism of fall remains unclear - patient ambulates with wheeled walker at baseline - ct imaging of the head in the ed was negative - pt/ot eval - monitor overnight with neurochecks - pain control with percocet/morphine - zofran for nausea - admit under obs for pain control and pt/ot eval 2. Right 5th metacarpal fx - fx is nondisplaced and has been splinted by ed provider - will ask day team to consult ortho to set up outpatient f/u - pain control as stated before 3. epilepsy - depakote level low - potential noncompliance - will continue depakote inpatient 4. HTN - continue amlodipine 5. Asthma - patient not in acute exacerbation DVT prophylaxis - mechanical d/t recent trauma]. Vital Signs Vital Signs Date Time Temp Pulse Resp B/P (MAP) Pulse Ox O2 Delivery O2 Flow Rate FiO2 05/09/21 18:41 82 05/09/21 18:20 20 05/09/21 17:51 99.9 05/09/21 17:32 160/71 (100) 05/09/21 17:18 Room Air 05/09/21 17:11 95 Laboratory Data Labs 24H Laboratory Tests 2 05/09/21 17:13: Immature Granulocyte % (Auto) 0.6, Neutrophils (%) (Auto) 75.7H, Lymphocytes (%) (Auto) 11.9L, Monocytes (%) (Auto) 9.7H, Eosinophils (%) (Auto) 1.5, Basophils (%) (Auto) 0.6, Neutrophils # (Auto) 5.9, Lymphocytes # (Auto) 0.9L, Monocytes # (Auto) 0.8, Eosinophils # (Auto) 0.1, Basophils # (Auto) 0.1, Nucleated Red Blood Cells % (auto) 0.0, Blood Gas Bicarbonate Standard 25.9, Venous Blood pH 7.370, Venous Blood Partial Pressure CO2 49.8, Venous Blood Partial Pressure O2 34.7, Venous Blood Total Carbon Dioxide 29.7H, Venous Blood HCO3 28.1H, Venous Blood Oxygen Saturation 63.3, Venous Blood Base Excess 2.3H, Anion Gap 5L, Glomerular Filtration Rate > 60.0, Calcium Level 8.6L, Magnesium Level 2.3, Total Creatine Kinase 204H, Creatine Kinase MB 3.5, Creatine Kinase MB Relative Index 1.72, Troponin I < 0.02, Thyroid Stimulating Hormone (TSH) 0.282L, Free Thyroxine 1.32, Valproic Acid (Depakene) Level < 3.0L CBC/BMP Laboratory Tests 05/09/21 17:13 Home Medications Scheduled Amlodipine Besylate (Amlodipine Besylate) 2.5 Mg Tablet, 2.5 MG PO DAILY Divalproex Sodium (Divalproex Sodium ER) 500 Mg Tab.er.24h, 500 MG PO DAILY Ergocalciferol (Vitamin D2) (Vitamin D2) 50,000 Units Cap, 50,000 UNITS PO 1XWK Allergies Coded Allergies: Egg Derived (Verified Allergy, Unknown, 02/09/19) Influenza Virus Vaccines (Verified Allergy, Unknown, 02/09/19) Penicillins (Verified Allergy, Unknown, 02/09/19) egg (Verified Allergy, Unknown, 02/09/19) latex (Verified Allergy, Unknown, 02/09/19) milk (Verified Allergy, Unknown, 02/09/19) sulfur dioxide (Verified Allergy, Unknown, 02/09/19) A-FIB/CHADSVASC A-FIB History Current/History of A-Fib/PAF?: No SASHA VAZQUEZ May 09, 2021 19:25
[2021-05-09] MEDS ORDERED: ACETAMINOPHEN 500 MG TAB PO ONE (20:15)
--- NOTE | 2021-05-09 20:42 | ECGEPIP ---
[facility] - ED Test Date: 2021-05-09 Pat Name: HENRY MULLIGAN Department: Room: - Gender: Female [employer]: : 1935 Requested By: Elvia Sanchez Order Number: [id number] Reading MD: Elvia Sanchez Measurements Intervals Trade Rate: 92 P: 78 ND: 154 QRS: 39 QRSD: 72 T: 104 QT: 380 QTc: 469 Interpretive Statements Normal sinus rhythm ST & T wave abnormality, consider ischemia Electronically Signed on 05-09-2021 20:42:15 EDT by Elvia Sanchez
[2021-05-09 20:59] LABS: RSV AMPLIFICATION NEGATIVE (NEGATIVE)
[2021-05-09 22:50] VITALS: BP 123/55
[2021-05-09] MEDS: NS 1,000 ML IV SCH (22:57)
[2021-05-09] MEDS: POLYVINYL ALCOHOL OPHTH SOLN 15 ML(LIQUITEARS) OU SCH (22:58)
[2021-05-10 05:59] LABS: HEMOGLOBIN 7.9 g/dl (12.0-15.5); MEAN CORPUSCULAR HEMOGLOBIN 25.3 pg (27.0-33.0); MEAN CORPUSCULAR HGB CONC 30.4 g/dl (32.0-36.5); MEAN CORPUSCULAR VOLUME 83.3 fl (80.0-96.0); PLATELET COUNT, AUTOMATED 194 10^3/uL (150-450); RED BLOOD COUNT 3.12 10^6/uL (4.00-5.40); WHITE BLOOD COUNT 4.2 10^3/uL (4.0-10.0)
[2021-05-10 06:00] VITALS: BP 123/58
[2021-05-10] MEDS: NS 1,000 ML IV SCH (06:15)
[2021-05-10 06:35] LABS: BLOOD UREA NITROGEN 22 MG/DL (7-18); CALCIUM LEVEL 7.9 MG/DL (8.8-10.2); CARBON DIOXIDE LEVEL 29 MEQ/L (21-32); CHLORIDE LEVEL 115 MEQ/L (98-107); CREATININE FOR GFR 0.59 MG/DL (0.55-1.30); FERRITIN 9 NG/ML (8-252); GLOMERULAR FILTRATION RATE > 60.0 (>32); GLUCOSE, FASTING 82 MG/DL (70-100); IRON (FE) 24 UG/DL (50-170); MAGNESIUM LEVEL 2.2 MG/DL (1.8-2.4); POTASSIUM SERUM 3.8 MEQ/L (3.5-5.1); SODIUM LEVEL 148 MEQ/L (136-145); TOTAL IRON BINDING CAPACITY 300 UG/DL (250-450)
[2021-05-10 08:28] LABS: VITAMIN B12 LEVEL 226 PG/ML (247-911)
[2021-05-10] MEDS: DIVALPROEX 500MG *ER* TAB PO SCH (10:03)
[2021-05-10] MEDS: POLYVINYL ALCOHOL OPHTH SOLN 15 ML(LIQUITEARS) OU SCH ×3 (10:03→21:31)
[2021-05-10 14:00] VITALS: BP 121/56
--- NOTE | 2021-05-10 16:03 | IPNPDOC ---
Subjective Date Seen The patient was seen on 05/10/21. Subjective Chief Complaint/HPI Ms. Elliott has been fairly sleepy today per nursing. They do not think she is eating or drinking very well, although no one has seen her choking or potentially aspirating. She does complain of pain all over when she is moved but otherwise does not seem to have acute complaints. Constitutional: Reports: Weakness, Fatigue; Denies: Chills, Fever Pulmonary: Denies: Dyspnea Musculoskeletal: Reports: Arm Pain Objective Physical Examination General Exam: Positive: Cooperative, No Acute Distress; Negative: Alert (She is resting when I entered the room but is easily arousable to verbal and tactile stimuli) Eye Exam: Positive: Other Eye Symptoms (Significant ecchymosis around the right eye); Negative: Sclera icteric ENT Exam: Negative: Mucous membr. moist/pink (Mucous membranes are mildly dry) Neck Exam: Positive: Supple; Negative: JVD, Lymphadenopathy Chest Exam: Positive: Clear to auscultation, Diminished Heart Exam: Positive: Rate Normal, Regular Rhythm, Normal S1, Normal S2, Murmurs (There is a 2/6 systolic ejection murmur at the right upper sternal border) Abdomen Exam: Positive: Normal bowel sounds, Soft Extremity Exam: Negative: Edema Skin Exam: Positive: Other skin issue (There are multiple areas of ecchymosis after her fall) Psych Exam: Negative: Memory Intact Assessment /Plan Assessment 1. Fall -Mechanism is still unclear, but it was likely mechanical - pt/ot treatment 2. Right 5th metacarpal fx - fx is nondisplaced and has been splinted by ed provider - will ask day team to consult ortho to set up outpatient f/u - pain control as stated before 3. Anemia, probably chronic inflammatory anemia plus some acute blood loss after her fall. -Her hemoglobin dropped initially from admission, but this may represent rehydration. -We will continue to monitor. 4. Hypernatremia, probably hypovolemic. -I spoke to nursing and asked them to encourage oral intake. -We will continue to monitor. 5. epilepsy - depakote level low - potential noncompliance - will continue depakote inpatient 6. HTN - continue amlodipine 7. Asthma -Stable -Continue current regimen, monitor. DVT prophylaxis - mechanical d/t recent trauma]. Plan/VTE VTE Prophylaxis Ordered?: Yes VTE Exclusion Mechanical Proph: N/A:VTE Prophy Ordered VTE Exclusion Pharmacological: Bleeding Risk VS, I&O, 24H, Fishbone Vital Signs/I&O Vital Signs Date Time Temp Pulse Resp B/P (MAP) Pulse Ox O2 Delivery O2 Flow Rate FiO2 05/10/21 14:00 98.7 87 18 121/56 (77) 95 Room Air I&O- Last 24 Hours up to 6 AM 05/10/21 06:00 Intake Total 100 ml Balance 100 ml Laboratory Data 24H LABS Laboratory Tests 2 05/09/21 17:13: Immature Granulocyte % (Auto) 0.6, Neutrophils (%) (Auto) 75.7H, Lymphocytes (%) (Auto) 11.9L, Monocytes (%) (Auto) 9.7H, Eosinophils (%) (Auto) 1.5, Basophils (%) (Auto) 0.6, Neutrophils # (Auto) 5.9, Lymphocytes # (Auto) 0.9L, Monocytes # (Auto) 0.8, Eosinophils # (Auto) 0.1, Basophils # (Auto) 0.1, Nucleated Red Blood Cells % (auto) 0.0, Blood Gas Bicarbonate Standard 25.9, Venous Blood pH 7.370, Venous Blood Partial Pressure CO2 49.8, Venous Blood Partial Pressure O2 34.7, Venous Blood Total Carbon Dioxide 29.7H, Venous Blood HCO3 28.1H, Venous Blood Oxygen Saturation 63.3, Venous Blood Base Excess 2.3H, Anion Gap 5L, Glomerular Filtration Rate > 60.0, Calcium Level 8.6L, Magnesium Level 2.3, Total Creatine Kinase 204H, Creatine Kinase MB 3.5, Creatine Kinase MB Relative Index 1.72, Troponin I < 0.02, Thyroid Stimulating Hormone (TSH) 0.282L, Free Thyroxine 1.32, Valproic Acid (Depakene) Level < 3.0L 05/09/21 19:55: Coronavirus (COVID-19)(PCR) NEGATIVE, Influenza Type A (RT-PCR) NEGATIVE, Influenza Type B (RT-PCR) NEGATIVE, Respiratory Syncytial Virus (PCR) NEGATIVE 05/10/21 05:18: Nucleated Red Blood Cells % (auto) 0.0, Anion Gap 4L, Glomerular Filtration Rate > 60.0, Calcium Level 7.9L, Magnesium Level 2.2, Iron Level 24L, Total Iron Binding Capacity 300, Transferrin % Saturation 8.0L, Ferritin 9, Vitamin B12 Level 226L, Folate 6.0 05/10/21 11:59: Lab Scanned Report Miscellaneous Lab CBC/BMP Laboratory Tests 05/09/21 17:13 05/10/21 05:18 Jim Perez MD May 10, 2021 16:03
[2021-05-10] MEDS: ACETAMINOPHEN TAB 650MG DOSE (2X325MG) PO PRN (21:35)
[2021-05-10 22:00] VITALS: BP 119/54
[2021-05-11 01:41] VITALS: BP 124/54
[2021-05-11 06:00] VITALS: BP 143/63
[2021-05-11 06:21] LABS: HEMATOCRIT 26.3 % (36.0-47.0); HEMOGLOBIN 7.8 g/dl (12.0-15.5); MEAN CORPUSCULAR HEMOGLOBIN 25.2 pg (27.0-33.0); MEAN CORPUSCULAR HGB CONC 29.7 g/dl (32.0-36.5); MEAN CORPUSCULAR VOLUME 84.8 fl (80.0-96.0); PLATELET COUNT, AUTOMATED 207 10^3/uL (150-450); WHITE BLOOD COUNT 4.6 10^3/uL (4.0-10.0)
[2021-05-11 06:47] LABS: ALBUMIN 2.6 GM/DL (3.2-5.2); ALT/SGPT 14 U/L (12-78); BILIRUBIN,TOTAL 0.5 MG/DL (0.2-1.0); BLOOD UREA NITROGEN 23 MG/DL (7-18); CALCIUM LEVEL 8.3 MG/DL (8.8-10.2); CARBON DIOXIDE LEVEL 30 MEQ/L (21-32); CHLORIDE LEVEL 116 MEQ/L (98-107); CREATININE FOR GFR 0.46 MG/DL (0.55-1.30); GLOMERULAR FILTRATION RATE > 60.0 (>32); GLUCOSE, FASTING 77 MG/DL (70-100); POTASSIUM SERUM 3.9 MEQ/L (3.5-5.1); SODIUM LEVEL 149 MEQ/L (136-145); TOTAL PROTEIN 5.3 GM/DL (6.4-8.2)
[2021-05-11] MEDS ORDERED: CYANOCOBALAMIN 1,000MCG/ML VIAL (J3420) IM SCH (09:00)
[2021-05-11] MEDS: ACETAMINOPHEN TAB 650MG DOSE (2X325MG) PO PRN (09:57)
[2021-05-11] MEDS: FERROUS GLUCONATE 324 MG TAB PO SCH (09:58)
[2021-05-11] MEDS: DIVALPROEX 500MG *ER* TAB PO SCH (09:58)
[2021-05-11] MEDS: CYANOCOBALAMIN 500 MCG TAB PO SCH (09:58)
[2021-05-11] MEDS: POLYVINYL ALCOHOL OPHTH SOLN 15 ML(LIQUITEARS) OU SCH ×3 (10:00→20:25)
[2021-05-11 14:00] VITALS: BP 97/63
--- NOTE | 2021-05-11 19:50 | IPNPDOC ---
Subjective Date Seen The patient was seen on 05/11/21. Subjective Chief Complaint/HPI Ms. Elliott has been a little more alert today. Nursing is concerned about how purple her right fourth finger is. She has a ring on and nursing is concerned it may be restricting flow to that finger. She is also complaining of more pain around her right shoulder. This does have a bruise on it, but was not x-rayed on her initial presentation as she was not complaining about significant pain in that area on presentation. Constitutional: Reports: Weakness; Denies: Chills, Fever Eyes: Denies: Conjunctivae inflammation, Eyelid inflammation Pulmonary: Denies: Dyspnea, Cough Cardiovascular: Denies: Chest Pain Gastrointestinal: Denies: Nausea, Vomiting Hematologic: Reports: Bruising Musculoskeletal: Reports: Joint Pain (Shoulder pain) Objective Physical Examination General Exam: Positive: Cooperative, Mild Distress (From musculoskeletal pain); Negative: Alert (She is resting in bed when I entered the room but is easily arousable to verbal and tactile stimuli) Eye Exam: Positive: Other Eye Symptoms (Significant ecchymosis around the right eye); Negative: Sclera icteric ENT Exam: Positive: Tongue Midline; Negative: Mucous membr. moist/pink (Mucous membranes are mildly dry) Neck Exam: Positive: Supple; Negative: Lymphadenopathy Chest Exam: Positive: Clear to auscultation, Diminished Heart Exam: Positive: Rate Normal, Regular Rhythm, Normal S1, Normal S2, Murmurs (There is a 2/6 systolic ejection murmur at the right upper sternal border) Abdomen Exam: Positive: Normal bowel sounds, Soft Extremity Exam: Positive: Tenderness (Diffusely on gentle palpation over the right shoulder. I do not notice any specific defect in the range of motion); Negative: Edema Psych Exam: Negative: Memory Intact Assessment /Plan Assessment 1. Right 5th metacarpal fx -Careful evaluation of the right fourth finger reveals ecchymosis. The ring does not present a challenge of the circulation in the finger. Capillary refill is a little less than 1 second at the tip of the finger. - fx is nondisplaced and has been splinted by ed provider - will need outpatient follow-up with ortho on discharge - pain control as stated before 2. Anemia, probably chronic inflammatory anemia plus some acute blood loss after her fall. -Her hemoglobin is stable but has not improved much. -I do note a B12 deficiency. I will start her with an injection and then give her daily vitamin B12. -She has an iron deficiency as well, but I am not going to supplement her at this time. I would like to manipulate 1 variable only and I am concerned about constipation here in the hospital. -We will continue to monitor. 3. Hypernatremia, probably hypovolemic. -Her hypernatremia is actually worse today. -We will continue to encourage oral intake. I would rather not start her back on IV fluids as anticipate a discharge to SNF in the near future. -We will continue to monitor. 4. Fall -Mechanism is still unclear, but it was likely mechanical - pt/ot treatment 5. epilepsy - depakote level low - potential noncompliance - will continue depakote inpatient 6. HTN - continue amlodipine 7. Asthma -Stable -Continue current regimen, monitor. DVT prophylaxis - mechanical d/t recent trauma. Plan/VTE VTE Prophylaxis Ordered?: Yes VTE Exclusion Mechanical Proph: N/A:VTE Prophy Ordered VTE Exclusion Pharmacological: Bleeding Risk Disposition ARU versus SNF. I have been told by case management that ARU will be difficult to obtain through her insurance. VS, I&O, 24H, Fishbone Vital Signs/I&O Vital Signs Date Time Temp Pulse Resp B/P (MAP) Pulse Ox O2 Delivery O2 Flow Rate FiO2 05/11/21 14:00 97.9 88 18 97/63 (74) 99 Room Air I&O- Last 24 Hours up to 6 AM 05/11/21 06:00 Intake Total 440 ml Output Total 250 ml Balance 190 ml Laboratory Data 24H LABS Laboratory Tests 2 05/11/21 05:18: Nucleated Red Blood Cells % (auto) 0.0, Anion Gap 3L, Glomerular Filtration Rate > 60.0, Calcium Level 8.3L, Total Bilirubin 0.5, Aspartate Amino Transf (AST/SGOT) 13, Alanine Aminotransferase (ALT/SGPT) 14, Alkaline Phosphatase 69, Total Protein 5.3L, Albumin 2.6L, Albumin/Globulin Ratio 1.0L CBC/BMP Laboratory Tests 05/11/21 05:18 Jim Perez MD May 11, 2021 19:50
[2021-05-11 22:00] VITALS: BP 136/62
[2021-05-12 05:55] LABS: HEMATOCRIT 27.8 % (36.0-47.0); HEMOGLOBIN 8.5 g/dl (12.0-15.5); MEAN CORPUSCULAR HEMOGLOBIN 25.2 pg (27.0-33.0); MEAN CORPUSCULAR HGB CONC 30.6 g/dl (32.0-36.5); MEAN CORPUSCULAR VOLUME 82.5 fl (80.0-96.0); PLATELET COUNT, AUTOMATED 225 10^3/uL (150-450); RED BLOOD COUNT 3.37 10^6/uL (4.00-5.40); WHITE BLOOD COUNT 5.2 10^3/uL (4.0-10.0)
[2021-05-12 06:00] VITALS: BP 139/63
[2021-05-12 06:20] LABS: ALBUMIN 2.7 GM/DL (3.2-5.2); BLOOD UREA NITROGEN 21 MG/DL (7-18); CALCIUM LEVEL 8.2 MG/DL (8.8-10.2); CARBON DIOXIDE LEVEL 30 MEQ/L (21-32); CHLORIDE LEVEL 114 MEQ/L (98-107); CREATININE FOR GFR 0.38 MG/DL (0.55-1.30); GLOMERULAR FILTRATION RATE > 60.0 (>32); GLUCOSE, FASTING 77 MG/DL (70-100); PHOSPHORUS LEVEL 2.4 MG/DL (2.5-4.9); POTASSIUM SERUM 3.7 MEQ/L (3.5-5.1); SODIUM LEVEL 149 MEQ/L (136-145)
[2021-05-12] MEDS: CYANOCOBALAMIN 500 MCG TAB PO SCH (08:39)
[2021-05-12] MEDS: FERROUS GLUCONATE 324 MG TAB PO SCH (08:39)
[2021-05-12] MEDS: POLYVINYL ALCOHOL OPHTH SOLN 15 ML(LIQUITEARS) OU SCH ×4 (08:40→21:00)
[2021-05-12] MEDS: DIVALPROEX 500MG *ER* TAB PO SCH (08:40)
[2021-05-12 14:00] VITALS: BP 140/65
--- NOTE | 2021-05-12 15:38 | IPNPDOC ---
Subjective Date Seen The patient was seen on 05/12/21. Subjective Chief Complaint/HPI Ms. Elliott has been a little more on the lethargic side again today. Apparently she refused to go down for the x-ray of her shoulder that I ordered yesterday. I spoke to the nurses aides and they report she is eating very little. Perhaps 25% of her breakfast and only peaches for lunch. When I talked to the patient about this and suggested that we would probably have to restart IV fluids which would mean going home would be very difficult she became defiant and said "then just asked me to eat and I will do what you want." I did ask her to eat; I asked her to start drinking the Ensure that was on her bedside table starting immediately. I had a chance to speak with her today as well. He reports that they have a rolling walker and a wheelchair for her at home. He is interested in bringing her home and says that he is around most of the time. They have a daughter next door and he usually coordinates with her when he wants to leave for a while. Constitutional: Denies: Chills, Fever Skin: Reports: Bruising Pulmonary: Denies: Dyspnea, Cough Gastrointestinal: Denies: Nausea, Vomiting, Abdominal Pain Genitourinary: Denies: Dysuria Musculoskeletal: Reports: Hand Pain Objective Physical Examination General Exam: Positive: No Acute Distress; Negative: Alert (She was sleeping slouched over in her Paty chair when I entered the room. She was easily arousable to verbal and tactile stimuli), Cooperative (She engaged in conversation today but was a little more defiant) Eye Exam: Positive: Other Eye Symptoms (The ecchymosis around her right eye is now resolving and there is bilixanthan noted under the skin); Negative: Sclera icteric ENT Exam: Positive: Mucous membr. moist/pink (Mucous membranes remain dry) Neck Exam: Positive: Supple; Negative: Lymphadenopathy Chest Exam: Positive: Clear to auscultation, Diminished Heart Exam: Positive: Rate Normal, Regular Rhythm, Normal S1, Normal S2, Murmurs (Murmur is again noted) Abdomen Exam: Positive: Normal bowel sounds, Soft Extremity Exam: Positive: Tenderness (He now reports only very mild tenderness when I palpate her right shoulder, but the examination is done with her present); Negative: Edema Neuro Exam: Negative: Normal Speech (Her speech is not entirely normal, but she is much more verbal with me today than she has been. I suspect the presence of her for part of my interview has something to do with this.) Assessment /Plan Assessment 1. Weakness and debility developing after fall in a geriatric patient -Mechanism is still unclear, but it was likely mechanical -PT is recommending continued rehab and suggest she may have a lengthy stay due to the severity of her deconditioning. 2. Anemia, probably chronic inflammatory anemia plus some acute blood loss after her fall. -Her hemoglobin has improved but I wonder if some of this is volume contraction. -She is now on vitamin B12. Is not time to recheck the level yet. -We will continue to monitor. 3. Hypernatremia, probably hypovolemic. -Her hypernatremia is stable but not improving. -I got discussed the possibility of going back to some IV hydration but the patient was declining this. She states she will eat and drink if we just ask her to. When I spoke to the nursing aides they reports they have been asking her to on a regular basis, but she does not follow their recommendations as soon as they leave the room. We will continue to encourage oral intake for 1 more day. If I do not see improvement tomorrow we will have to go with IV rehydration. -We will continue to monitor. 4. Right 5th metacarpal fx - fx is nondisplaced and has been splinted by ed provider - will need outpatient follow-up with ortho on discharge - pain control as stated before 5. epilepsy - depakote level low - potential noncompliance - will continue depakote inpatient 6. HTN - continue amlodipine 7. Asthma -Stable -Continue current regimen, monitor. DVT prophylaxis - mechanical d/t recent trauma. Plan/VTE VTE Prophylaxis Ordered?: Yes VTE Exclusion Mechanical Proph: N/A:VTE Prophy Ordered VTE Exclusion Pharmacological: Bleeding Risk Plan Anticipated Discharge: Sub Acute Rehab (Although family would prefer home) VS, I&O, 24H, Fishbone Vital Signs/I&O Vital Signs Date Time Temp Pulse Resp B/P (MAP) Pulse Ox O2 Delivery O2 Flow Rate FiO2 05/12/21 14:00 97.4 87 18 99 Room Air 05/12/21 08:40 139/63 I&O- Last 24 Hours up to 6 AM 05/12/21 06:00 Intake Total 300 ml Output Total 200 ml Balance 100 ml Laboratory Data 24H LABS Laboratory Tests 2 05/12/21 05:31: Nucleated Red Blood Cells % (auto) 0.0, Anion Gap 5L, Glomerular Filtration Rate > 60.0, Calcium Level 8.2L, Phosphorus Level 2.4L, Albumin 2.7L CBC/BMP Laboratory Tests 05/12/21 05:31 Jim Perez MD May 12, 2021 15:38
[2021-05-13] MEDS: ACETAMINOPHEN TAB 650MG DOSE (2X325MG) PO PRN ×3 (05:08→21:18)
[2021-05-13 05:46] LABS: HEMATOCRIT 29.5 % (36.0-47.0); HEMOGLOBIN 8.8 g/dl (12.0-15.5); MEAN CORPUSCULAR HEMOGLOBIN 24.5 pg (27.0-33.0); MEAN CORPUSCULAR HGB CONC 29.8 g/dl (32.0-36.5); MEAN CORPUSCULAR VOLUME 82.2 fl (80.0-96.0); PLATELET COUNT, AUTOMATED 258 10^3/uL (150-450); RED BLOOD COUNT 3.59 10^6/uL (4.00-5.40); WHITE BLOOD COUNT 4.7 10^3/uL (4.0-10.0)
[2021-05-13 05:58] LABS: ALBUMIN 2.9 GM/DL (3.2-5.2); BLOOD UREA NITROGEN 19 MG/DL (7-18); CALCIUM LEVEL 8.6 MG/DL (8.8-10.2); CARBON DIOXIDE LEVEL 30 MEQ/L (21-32); CHLORIDE LEVEL 111 MEQ/L (98-107); CREATININE FOR GFR 0.36 MG/DL (0.55-1.30); GLOMERULAR FILTRATION RATE > 60.0 (>32); GLUCOSE, FASTING 90 MG/DL (70-100); PHOSPHORUS LEVEL 2.6 MG/DL (2.5-4.9); POTASSIUM SERUM 3.3 MEQ/L (3.5-5.1); SODIUM LEVEL 146 MEQ/L (136-145)
[2021-05-13 06:00] VITALS: BP 133/61
[2021-05-13] MEDS: FERROUS GLUCONATE 324 MG TAB PO SCH ×2 (09:00→09:27)
[2021-05-13] MEDS: DIVALPROEX 500MG *ER* TAB PO SCH ×2 (09:00→09:28)
[2021-05-13] MEDS: CYANOCOBALAMIN 500 MCG TAB PO SCH ×2 (09:00→09:27)
[2021-05-13] MEDS: POLYVINYL ALCOHOL OPHTH SOLN 15 ML(LIQUITEARS) OU SCH ×3 (09:30→21:18)
[2021-05-13] MEDS ORDERED: POTASSIUM CHLORIDE 10% LIQ 20 MEQ/15 ML UDC PO ONE (09:55)
--- NOTE | 2021-05-13 09:55 | IPNPDOC ---
Subjective Date Seen The patient was seen on 05/13/21. Subjective Chief Complaint/HPI Ms. Elliott reports that her pills made her feel nauseated this morning. Nursing reports that she refused her Depakote this Am because of this. However, she ate all her breakfast (which is a new and positive development) and has been sipping at coffee throughout the morning so far. Additionally her Hb continues to come up a little and her sodium is coming down. These are positive developments and make me think that she is ready for transfer to ARU or a sub-acute rehab if that is not an option. Constitutional: Denies: Chills, Fever Pulmonary: Denies: Dyspnea, Cough Gastrointestinal: Reports: Nausea; Denies: Vomiting Objective Physical Examination General Exam: Positive: Cooperative, No Acute Distress; Negative: Alert (She was sleeping in her bed, but was easily arousable to verbal and tactile stimuli) Eye Exam: Positive: Other Eye Symptoms (The ecchymosis around her right eye is resolving and there is bilixanthan noted under the skin); Negative: Sclera icteric ENT Exam: Positive: Mucous membr. moist/pink (improved from the last several days) Neck Exam: Positive: Supple; Negative: Lymphadenopathy Chest Exam: Positive: Clear to auscultation, Diminished Heart Exam: Positive: Rate Normal, Regular Rhythm, Normal S1, Normal S2, Murmurs (soft [place] again noted, but seems to be going away as her hydration status improves) Abdomen Exam: Positive: Normal bowel sounds, Soft Extremity Exam: Negative: Edema, Tenderness (on light palpation) Skin Exam: Positive: Other skin issue (There are multiple areas of ecchymosis after her fall) Neuro Exam: Negative: Normal Speech (she answers direct questions appropriately, but will not engage in the usual back and forth of a conversation) Psych Exam: Negative: Memory Intact Assessment /Plan Assessment 1. Weakness and debility developing after fall in a geriatric patient -Mechanism is still unclear, but it was likely mechanical -I think she is medically ready today for ARU or sub-acute rehab is ARU is not an option. 2. Anemia, probably chronic inflammatory anemia plus some acute blood loss after her fall. -Her hemoglobin has improved even as her hydration status has also improved, so she is heading in the proper direction. -She is now on vitamin B12. -Continue to monitor every once in a while. 3. Hypernatremia, probably hypovolemic. -Her hypernatremia is improving with improved PO intake. -she lost her IV access overnight, but nursing is cautiously optimistic that they can get her to continue to take in nutrition over the course of a day. -We will continue to monitor. 4. Right 5th metacarpal fx - fx is nondisplaced and has been splinted by ed provider - will need outpatient follow-up with ortho on discharge - pain control as stated before 5. epilepsy - depakote level low - potential noncompliance including this morning - will continue depakote inpatient 6. HTN - continue amlodipine 7. Asthma -Stable -Continue current regimen, monitor. Plan/VTE VTE Prophylaxis Ordered?: Yes VTE Exclusion Mechanical Proph: N/A:VTE Prophy Ordered VTE Exclusion Pharmacological: Bleeding Risk Plan Anticipated Discharge: Sub Acute Rehab (vs. ARU if accepted) VS, I&O, 24H, Fishbone Vital Signs/I&O Vital Signs Date Time Temp Pulse Resp B/P (MAP) Pulse Ox O2 Delivery O2 Flow Rate FiO2 05/13/21 09:30 93 131/67 05/13/21 06:00 98.4 20 98 Room Air I&O- Last 24 Hours up to 6 AM 05/13/21 06:00 Intake Total 630 ml Output Total 100 ml Balance 530 ml Laboratory Data 24H LABS Laboratory Tests 2 05/13/21 05:14: Nucleated Red Blood Cells % (auto) 0.0, Anion Gap 5L, Glomerular Filtration Rate > 60.0, Calcium Level 8.6L, Phosphorus Level 2.6, Albumin 2.9L CBC/BMP Laboratory Tests 05/13/21 05:14 Jim Perez MD May 13, 2021 09:55
[2021-05-13 14:00] VITALS: BP 127/63
[2021-05-13 22:00] VITALS: BP 129/61
--- NOTE | 2021-05-14 01:46 | IPNPDOC ---
Text Note Date of Service Significant event. The patient was seen on 05/14/21. NOTE Notified patient pulled off splint for her right fifth metacarpal fracture. Patient has dementia and anticipate this will keep happening. Spoke with Ortho on-call who recommended reinforcement as the fracturegiven patient's other comorbid concernsis not operable and challenged with continuously resplinting as she pulls it back off. Patient seen at bedside in no acute distress. She is legally blind and notable bruising to the right side of the face. Patient is able to move the hand and able to research rn spec with it. She is able to ambulate with assistance with a walker and hold onto the walker railing. There is a noticeable bruise in healing stages as there are green and yellow hues to the right dorsal side of the hand. Of note, patient does have a ring on her right ring finger and her finger is somewhat swollen which would make the ring difficult to get off. Supportive maneuvers for fracture with gauze and Vito bandage to support while no t inhibiting movement were applied. Patient tolerated well with no complaints. Her main complaint relates to some right neck trapezius soreness. We will offer Lidoderm patch for this. Encourage redirection/reorientation from from nursing staff to encourage patient compliance with the wrap. Consider further Ortho recommendations pending patient response/course. Patient currently has impressive use of the right hand at present. [facility]. VS,Fishbone, I+O VS, Fishbone, I+O Laboratory Tests 05/13/21 05:14 Vital Signs Date Time Temp Pulse Resp B/P (MAP) Pulse Ox O2 Delivery O2 Flow Rate FiO2 05/13/21 22:00 98.7 82 18 129/61 (83) 97 Room Air I&O- Last 24 Hours up to 6 AM 05/14/21 06:00 Intake Total 380 ml Balance 380 ml LON MATHEW NP May 14, 2021 01:11
[2021-05-14 06:00] VITALS: BP 125/66
[2021-05-14] MEDS: POLYVINYL ALCOHOL OPHTH SOLN 15 ML(LIQUITEARS) OU SCH ×3 (09:00→21:00)
[2021-05-14] MEDS: FERROUS GLUCONATE 324 MG TAB PO SCH (11:26)
[2021-05-14] MEDS: CYANOCOBALAMIN 500 MCG TAB PO SCH (11:27)
[2021-05-14] MEDS: DIVALPROEX 500MG *ER* TAB PO SCH (11:27)
[2021-05-14 14:00] VITALS: BP 159/82
[2021-05-14] MEDS ORDERED: LIDOCAINE 5% (LIDODERM) PATCH TD ONE (18:30)
[2021-05-14] MEDS ORDERED: HALOPERIDOL 5MG/ML VIAL (J1630 PER 1) IM PRN (20:25)
[2021-05-14] MEDS: **NOTE PATIENT COMMENT** MISC XX SCH (21:00)
--- NOTE | 2021-05-14 23:06 | IPNPDOC ---
Subjective Date Seen The patient was seen on 05/14/21. Subjective Chief Complaint/HPI Ms. Elliott has been very active today. She started the day by taking off the gutter splint that was supporting her fractured fifth metacarpal. Nursing has been working with her to try to get back on, but has been unsuccessful so far. They can't be too firm with her be as they don't want to accidentally displaced the currently nondisplaced metacarpal fracture. She has been up and down out of the chair and bed all day and required a sitter because the nursing staff could not keep her in a safe position, and [place] was not enough either (the nursing staff still had to go back in her room every several minutes). Her is at the bedside this afternoon and she has apparently been a bit more calm since he has been there. General: Reports: ROS Unobtainable (secondary to increased agitation today) Objective Physical Examination General Exam: Positive: Cooperative ( was at the bedside during my interview and exam), No Acute Distress; Negative: Alert (She was sleeping in her bed, but was easily arousable to verbal) Eye Exam: Positive: Other Eye Symptoms (The ecchymosis around her right eye is resolving and there is bilixanthan noted under the skin); Negative: Sclera icteric ENT Exam: Positive: Mucous membr. moist/pink (improved from the last several days), Nares Patent Neck Exam: Positive: Supple; Negative: Lymphadenopathy Chest Exam: Positive: Clear to auscultation, Diminished Heart Exam: Positive: Rate Normal, Regular Rhythm, Normal S1, Normal S2; Negative: Murmurs (none noted today) Abdomen Exam: Positive: Normal bowel sounds, Soft Extremity Exam: Negative: Edema, Tenderness Skin Exam: Positive: Other skin issue (There are multiple areas of ecchymosis after her fall) Neuro Exam: Negative: Normal Speech (she is only answering yes and no questions today) Psych Exam: Negative: Memory Intact Assessment /Plan Assessment 1. Delirium versus dementia - Probably delirium on dementia but I'm unsure of the cause of the delirium. - Maybe it is the unfamiliar location her lack of sleep last night - Nothing is showing objectively. Will continue to monitor for now. 2. Right 5th metacarpal fx - fx is nondisplaced and had been splinted by ed provider, but she took the splint off last night. I've asked nurses to continue to work to put it back on. - will need outpatient follow-up with ortho on discharge 3. Weakness and debility developing after fall in a geriatric patient -Mechanism is still unclear, but it was likely mechanical -She is medically ready today for ARU or sub-acute rehab is ARU is not an option. 4. Anemia, probably chronic inflammatory anemia plus some acute blood loss after her fall. -Her hemoglobin has improved even as her hydration status has also improved, so she is heading in the proper direction. -She is now on vitamin B12. -Continue to monitor every once in a while. 5. Hypernatremia, probably hypovolemic. -Her hypernatremia is improving with improved PO intake. -No IV access currently, but nursing is optimistic that they can get her to continue to take in nutrition over the course of a day. -We will continue to monitor. 6. epilepsy - depakote level low - potential noncompliance including this morning - will continue depakote inpatient 7. HTN - continue amlodipine 8. Asthma -Stable -Continue current regimen, monitor. Plan/VTE VTE Prophylaxis Ordered?: Yes VTE Exclusion Mechanical Proph: N/A:VTE Prophy Ordered VTE Exclusion Pharmacological: N/A:VTE Prophy Ordered Plan Anticipated Discharge: Sub Acute Rehab (vs. ARU if accepted) Advance Directives: DNR VS, I&O, 24H, Fishbone Vital Signs/I&O Vital Signs Date Time Temp Pulse Resp B/P (MAP) Pulse Ox O2 Delivery O2 Flow Rate FiO2 05/14/21 14:00 97.6 96 16 159/82 (107) 98 Room Air I&O- Last 24 Hours up to 6 AM 05/14/21 06:00 Intake Total 440 ml Balance 440 ml Jim Perez MD May 14, 2021 23:06
[2021-05-15 07:59] LABS: HEMATOCRIT 32.1 % (36.0-47.0); HEMOGLOBIN 9.6 g/dl (12.0-15.5); MEAN CORPUSCULAR HEMOGLOBIN 25.3 pg (27.0-33.0); MEAN CORPUSCULAR HGB CONC 29.9 g/dl (32.0-36.5); MEAN CORPUSCULAR VOLUME 84.7 fl (80.0-96.0); PLATELET COUNT, AUTOMATED 262 10^3/uL (150-450); RED BLOOD COUNT 3.79 10^6/uL (4.00-5.40); WHITE BLOOD COUNT 6.1 10^3/uL (4.0-10.0)
[2021-05-15 08:33] LABS: ALBUMIN 3.1 GM/DL (3.2-5.2); BLOOD UREA NITROGEN 16 MG/DL (7-18); CALCIUM LEVEL 8.9 MG/DL (8.8-10.2); CARBON DIOXIDE LEVEL 30 MEQ/L (21-32); CHLORIDE LEVEL 114 MEQ/L (98-107); CREATININE FOR GFR 0.43 MG/DL (0.55-1.30); GLOMERULAR FILTRATION RATE > 60.0 (>32); GLUCOSE, FASTING 82 MG/DL (70-100); PHOSPHORUS LEVEL 3.2 MG/DL (2.5-4.9); POTASSIUM SERUM 3.8 MEQ/L (3.5-5.1); SODIUM LEVEL 149 MEQ/L (136-145)
[2021-05-15] MEDS: FERROUS GLUCONATE 324 MG TAB PO SCH (10:08)
[2021-05-15] MEDS: DIVALPROEX 500MG *ER* TAB PO SCH (10:08)
[2021-05-15] MEDS: CYANOCOBALAMIN 500 MCG TAB PO SCH (10:08)
[2021-05-15] MEDS: ENOXAPARIN 40MG/0.4ML SYRINGE (J1650 PER 10MG) SC SCH (10:09)
[2021-05-15] MEDS: POLYVINYL ALCOHOL OPHTH SOLN 15 ML(LIQUITEARS) OU SCH ×3 (10:09→20:34)
[2021-05-15 14:00] VITALS: BP 126/55
--- NOTE | 2021-05-15 18:44 | IPNPDOC ---
Subjective Date Seen The patient was seen on 05/15/21. Subjective Chief Complaint/HPI Ms. Elliott was a little more agitated today. Her mood fluctuated quite a bit. During some of the time she gave the staff a hard time. Other times she is very sweet. There are no acute complaints. Constitutional: Denies: Chills, Fever Pulmonary: Denies: Dyspnea, Cough Gastrointestinal: Denies: Nausea, Vomiting Objective Physical Examination General Exam: Positive: Cooperative (with me she was very polite), No Acute Distress; Negative: Alert (She was sleeping in her bed, but was easily arousable to verbal stimuli) Eye Exam: Positive: Other Eye Symptoms (The ecchymosis around her right eye has nearly resolved); Negative: Sclera icteric ENT Exam: Positive: Mucous membr. moist/pink, Nares Patent Neck Exam: Positive: Supple; Negative: Lymphadenopathy Chest Exam: Positive: Clear to auscultation, Diminished Heart Exam: Positive: Rate Normal, Regular Rhythm, Normal S1, Normal S2; Negative: Murmurs Abdomen Exam: Positive: Normal bowel sounds, Soft Extremity Exam: Negative: Edema, Tenderness Skin Exam: Positive: Nl turgor and temperature Neuro Exam: Negative: Normal Speech (she can do yes and no questions today, she makes an attempt at polite conversation but is superficial) Psych Exam: Negative: Memory Intact Assessment /Plan Assessment 1. Delirium versus dementia - Probably delirium on dementia but I'm unsure of the cause of the delirium. - Maybe it is the unfamiliar location - Nothing is showing objectively. Will continue to monitor for now. 2. Weakness and debility developing after fall in a geriatric patient -Mechanism is still unclear, but it was likely mechanical -She is medically ready today for ARU or sub-acute rehab is ARU is not an option. 3. Right 5th metacarpal fx - fx is nondisplaced and had been splinted by ed provider -Nursing continues to guard the area carefully. - will need outpatient follow-up with ortho on discharge 4. Anemia, probably chronic inflammatory anemia plus some acute blood loss after her fall. -Her hemoglobin has improved even as her hydration status has also improved, so she is heading in the proper direction. -She is now on vitamin B12. -Continue to monitor every once in a while. 5. Hypernatremia, probably hypovolemic. -Her hypernatremia got a little worse today, but nursing has been unable to get her to take in as much as she had in the past few days. -No IV access currently, but nursing is optimistic that they can get her to continue to take in nutrition over the course of a day. -We will continue to monitor. 6. epilepsy - depakote level low - potential noncompliance including this morning - will continue depakote inpatient 7. HTN - continue amlodipine 8. Asthma -Stable -Continue current regimen, monitor. Plan/VTE VTE Prophylaxis Ordered?: Yes VTE Exclusion Mechanical Proph: N/A:VTE Prophy Ordered VTE Exclusion Pharmacological: N/A:VTE Prophy Ordered Plan Anticipated Discharge: Sub Acute Rehab (vs. ARU if accepted) Advance Directives: DNR VS, I&O, 24H, Fishbone Vital Signs/I&O Vital Signs Date Time Temp Pulse Resp B/P (MAP) Pulse Ox O2 Delivery O2 Flow Rate FiO2 05/15/21 14:00 98.5 78 18 126/55 (78) 97 Room Air I&O- Last 24 Hours up to 6 AM 05/15/21 06:00 Intake Total 320 ml Balance 320 ml Laboratory Data 24H LABS Laboratory Tests 2 05/15/21 07:45: Nucleated Red Blood Cells % (auto) 0.0, Anion Gap 5L, Glomerular Filtration Rate > 60.0, Calcium Level 8.9, Phosphorus Level 3.2#, Albumin 3.1L CBC/BMP Laboratory Tests 05/15/21 07:45 Jim Perez MD May 15, 2021 18:44
[2021-05-15] MEDS: ACETAMINOPHEN TAB 650MG DOSE (2X325MG) PO PRN (20:35)
[2021-05-15] MEDS: **NOTE PATIENT COMMENT** MISC XX SCH (20:41)
[2021-05-15 22:00] VITALS: BP 109/43
[2021-05-16] MEDS: DIVALPROEX 500MG *ER* TAB PO SCH (09:41)
[2021-05-16] MEDS: FERROUS GLUCONATE 324 MG TAB PO SCH (09:41)
[2021-05-16] MEDS: CYANOCOBALAMIN 500 MCG TAB PO SCH (09:41)
[2021-05-16] MEDS: POLYVINYL ALCOHOL OPHTH SOLN 15 ML(LIQUITEARS) OU SCH ×3 (09:42→20:25)
[2021-05-16] MEDS: ENOXAPARIN 40MG/0.4ML SYRINGE (J1650 PER 10MG) SC SCH (09:42)
[2021-05-16 14:00] VITALS: BP 118/57
[2021-05-16] MEDS: ACETAMINOPHEN TAB 650MG DOSE (2X325MG) PO PRN ×2 (15:54→21:59)
[2021-05-16] MEDS: **NOTE PATIENT COMMENT** MISC XX SCH (20:25)
[2021-05-16 22:00] VITALS: BP 110/56
--- NOTE | 2021-05-16 23:27 | IPNPDOC ---
Subjective Date Seen The patient was seen on 05/16/21. Objective Physical Examination General Exam: Positive: Cooperative (with me she was very polite), No Acute Distress; Negative: Alert (She was sleeping in her bed, but was easily arousable to verbal stimuli) Eye Exam: Positive: Other Eye Symptoms (The ecchymosis around her right eye has nearly resolved); Negative: Sclera icteric ENT Exam: Positive: Mucous membr. moist/pink, Nares Patent Neck Exam: Positive: Supple; Negative: Lymphadenopathy Chest Exam: Positive: Clear to auscultation, Diminished Heart Exam: Positive: Rate Normal, Regular Rhythm, Normal S1, Normal S2; Negative: Murmurs Abdomen Exam: Positive: Normal bowel sounds, Soft Extremity Exam: Negative: Edema, Tenderness Skin Exam: Positive: Nl turgor and temperature Neuro Exam: Negative: Normal Speech (she can do yes and no questions today, she makes an attempt at polite conversation but is superficial) Psych Exam: Negative: Memory Intact Assessment /Plan Plan/VTE VTE Prophylaxis Ordered?: Yes VTE Exclusion Mechanical Proph: N/A:VTE Prophy Ordered VTE Exclusion Pharmacological: N/A:VTE Prophy Ordered Plan Anticipated Discharge: Sub Acute Rehab (vs. ARU if accepted) Advance Directives: DNR VS, I&O, 24H, Fishbone Vital Signs/I&O Vital Signs Date Time Temp Pulse Resp B/P (MAP) Pulse Ox O2 Delivery O2 Flow Rate FiO2 05/16/21 14:00 98.4 99 16 118/57 (77) 97 Room Air I&O- Last 24 Hours up to 6 AM 05/16/21 05:59 Intake Total 640 ml Balance 640 ml Jim Perez MD May 16, 2021 23:27
[2021-05-17 05:09] VITALS: BP 108/54
[2021-05-17 08:41] VITALS: BP 127/62
[2021-05-17] MEDS: CYANOCOBALAMIN 500 MCG TAB PO SCH (08:41)
[2021-05-17] MEDS: FERROUS GLUCONATE 324 MG TAB PO SCH (08:41)
[2021-05-17 08:42] VITALS: BP 127/62
[2021-05-17] MEDS: DIVALPROEX 500MG *ER* TAB PO SCH (08:42)
[2021-05-17] MEDS: ACETAMINOPHEN TAB 650MG DOSE (2X325MG) PO PRN (08:42)
[2021-05-17] MEDS: POLYVINYL ALCOHOL OPHTH SOLN 15 ML(LIQUITEARS) OU SCH (08:54)
[2021-05-17] MEDS: ENOXAPARIN 40MG/0.4ML SYRINGE (J1650 PER 10MG) SC SCH (08:54)
[2021-05-17] MEDS ORDERED: ACET1TAB55 PO (09:26)
[2021-05-17] MEDS ORDERED: ACETAMINOPHEN TAB 650MG DOSE (2X325MG) PO ONE (09:30)
--- NOTE | 2021-05-17 13:21 | DSES ---
DISCHARGE SUMMARY DATE OF ADMISSION: 05/09/2021 DATE OF DISCHARGE: 05/17/2021 PRIMARY DISCHARGE DIAGNOSIS: 1. Right fifth metacarpal fracture status post mechanical fall. 2. Mechanical fall in the setting of chronic dementia. 3. Acute delirium on chronic dementia. 4. Chronic anemia. 5. Hypernatremia, dehydration due to decreased oral intake. 6. History of epilepsy. 7. Hypertension. 8. History of asthma. DISCHARGE MEDICATIONS: 1. Acetaminophen 650 as needed every 4 hours for pain. 2. Norvasc 2.5 daily. 3. Divalproex sodium 500 mg daily. 4. Vitamin D 50,000 units weekly. HOSPITAL COURSE: This is an 85-year-old female with a history of dementia, epilepsy, CAD, aortic insufficiency, mitral valve insufficiency, hypertension, hyperlipidemia, COPD, asthma, non-insulin dependent diabetes, admitted on May 09 with complaints of generalized pain after a fall that she had three days prior to coming in, does not remember falling but remembers hitting the ground. She was walking home when she fell down and thought that she may have tripped. Patient denied any dyspnea, shortness of breath, chest pain, pressure, tightness or palpitations prior to the fall. She was found to have a right fifth metatarsal fracture, splinted by the ER physician with outpatient follow-up with Orthopedic Surgery. CT of the head initially was negative. MRI of the brain was negative for any acute CVA. Patient's pain was controlled on as needed Percocet and Morphine, and Zofran for pain. Patient was continued on all of her home medications. She is medically stable for discharge. Patient declined home care services and was evaluated and treated by Physical Therapy and Occupational Therapy. She is discharged in stable condition. PHYSICAL EXAMINATION ON DISCHARGE: VITAL SIGNS: Temperature 98.6, pulse is 88, respiratory rate 18, blood pressure is 126/62, 97% on room air. GENERAL: Patient is awake, alert and oriented to herself, pleasantly confused. HEENT: Dry mucous membranes. NECK: No JVD or thyromegaly. LUNGS: Clear to auscultation without wheezing or rales. HEART: S1 and S2, sinus rhythm. ABDOMEN: Soft, nontender and nondistended. Positive bowel sounds. EXTREMITIES: No cyanosis or clubbing, or pitting edema. Patient has a fifth metacarpal that is splinted. LABORATORY DATA: Microbiology and imaging studies have been reviewed. TIME SPENT ON DISCHARGE: 30 minutes MTDD
== END 2021-05-17 15:45 | disposition home health service (06) | DRG 563 ==
LOC: M ED 16:11 → EDBD 16:11 → M ED INP 19:12 → ENRESERV 21:17 → M MS5PR 22:39
PROVIDERS: ADMIT General Practice; ATTEND General Practice
DX: S62.356A Nondisplaced fracture of shaft of fifth metacarpal bone, right hand, initial encounter for closed fracture (principal); E87.0 Hyperosmolality and hypernatremia; F03.90 Unspecified dementia, unspecified severity, without behavioral disturbance, psychotic disturbance, mood disturbance, and anxiety; G40.909 Epilepsy, unspecified, not intractable, without status epilepticus; I25.10 Atherosclerotic heart disease of native coronary artery without angina pectoris; I08.0 Rheumatic disorders of both mitral and aortic valves; E78.5 Hyperlipidemia, unspecified; I10 Essential (primary) hypertension; J45.909 Unspecified asthma, uncomplicated; E11.9 Type 2 diabetes mellitus without complications; Z98.41 Cataract extraction status, right eye; Z98.42 Cataract extraction status, left eye; Z90.79 Acquired absence of other genital organ(s); Z90.49 Acquired absence of other specified parts of digestive tract; Z96.641 Presence of right artificial hip joint; W01.0XXA Fall on same level from slipping, tripping and stumbling without subsequent striking against object, initial encounter; Y92.009 Unspecified place in unspecified non-institutional (private) residence as the place of occurrence of the external cause; Z20.822 Contact with and (suspected) exposure to COVID-19; Z79.899 Other long term (current) drug therapy; Z88.0 Allergy status to penicillin; Z88.2 Allergy status to sulfonamides; Z91.040 Latex allergy status; Z91.011 Allergy to milk products; Z91.012 Allergy to eggs; Z88.7 Allergy status to serum and vaccine; D50.0 Iron deficiency anemia secondary to blood loss (chronic); R26.89 Other abnormalities of gait and mobility; S00.93XA Contusion of unspecified part of head, initial encounter; H54.3 Unqualified visual loss, both eyes; R41.0 Disorientation, unspecified; R55 Syncope and collapse

== ENCOUNTER 2021-12-16 11:39 | Emergency (ER) | payer MEDICARE ==
[~2021-12-16] VITALS: Ht 165.1 cm; Wt 48.4 kg
[~2021-12-16 11:39] MED LIST changes: +ACET1TAB55 PO; +ERGO500029 PO
[2021-12-16 13:17] LABS: BASO % 0.4 % (0.0-1.0); EOS # 0.1 10^3/uL (0.0-0.5); EOS % 2.5 % (0.0-3.0); HEMATOCRIT 34.6 % (36.0-47.0); HEMOGLOBIN 10.7 g/dl (12.0-15.5); LYMPH # 0.9 10^3/uL (1.5-5.0); LYMPH % 17.5 % (24.0-44.0); MEAN CORPUSCULAR HEMOGLOBIN 26.1 pg (27.0-33.0); MEAN CORPUSCULAR HGB CONC 30.9 g/dl (32.0-36.5); MEAN CORPUSCULAR VOLUME 84.4 fl (80.0-96.0); MONO # 0.4 10^3/uL (0.0-0.8); NEUTROPHILS # 3.5 10^3/uL (1.5-8.5); NEUTROPHILS % 71.2 % (36.0-66.0); PLATELET COUNT, AUTOMATED 210 10^3/uL (150-450); WHITE BLOOD COUNT 4.9 10^3/uL (4.0-10.0)
[2021-12-16 13:35] LABS: CK-MB VALUE MASS 2.4 NG/ML (<3.6); MB/CK RELATIVE INDEX 3.33 (< OR =4)
[2021-12-16 13:40] LABS: ALBUMIN 3.2 GM/DL (3.2-5.2); ALT/SGPT 19 U/L (12-78); BILIRUBIN,DIRECT 0.1 MG/DL (0.0-0.2); BILIRUBIN,TOTAL 0.5 MG/DL (0.2-1.0); BLOOD UREA NITROGEN 10 MG/DL (7-18); CARBON DIOXIDE LEVEL 27 MEQ/L (21-32); CHLORIDE LEVEL 112 MEQ/L (98-107); CREATININE FOR GFR 0.57 MG/DL (0.55-1.30); GLOMERULAR FILTRATION RATE > 60.0 (>32); GLUCOSE, FASTING 104 MG/DL (70-100); NT-PRO BNP 328 PG/ML (<450); POTASSIUM SERUM 3.7 MEQ/L (3.5-5.1); SODIUM LEVEL 144 MEQ/L (136-145); THYROID STIMULATING HORMONE 0.976 uIU/ML (0.358-3.740); TOTAL PROTEIN 6.4 GM/DL (6.4-8.2)
[2021-12-16 14:30] VITALS: BP 176/93
== END 2021-12-16 15:01 | disposition home or self-care (01) ==
LOC: M ED 11:39
DX: F03.90 Unspecified dementia, unspecified severity, without behavioral disturbance, psychotic disturbance, mood disturbance, and anxiety (principal); E11.9 Type 2 diabetes mellitus without complications; I10 Essential (primary) hypertension; J44.9 Chronic obstructive pulmonary disease, unspecified; E78.5 Hyperlipidemia, unspecified; G40.909 Epilepsy, unspecified, not intractable, without status epilepticus; I25.10 Atherosclerotic heart disease of native coronary artery without angina pectoris; Z91.012 Allergy to eggs; Z91.011 Allergy to milk products; Z79.899 Other long term (current) drug therapy; Z88.0 Allergy status to penicillin; Z88.2 Allergy status to sulfonamides; Z88.7 Allergy status to serum and vaccine; Z88.8 Allergy status to other drugs, medicaments and biological substances

== ENCOUNTER 2022-02-09 20:13 | Emergency (ER) | payer MEDICARE, SELFPAY ==
[~2022-02-09] VITALS: Ht 127 cm; Wt 49.4 kg
[2022-02-09 20:14] VITALS: BP 193/86
== END 2022-02-09 21:32 | disposition left against medical advice (07) ==
LOC: M ED 20:13
DX: Z53.29 Procedure and treatment not carried out because of patient's decision for other reasons (principal)

== ENCOUNTER 2022-10-10 21:03 | Inpatient (IN) | payer MEDICARE ==
[~2022-10-10] VITALS: Ht 162.6 cm; Wt 40.0 kg
[2022-10-10 22:28] LABS: BASO % 0.3 % (0.0-1.0); EOS % 0.4 % (0.0-3.0); HEMATOCRIT 37.9 % (36.0-47.0); HEMOGLOBIN 11.8 g/dl (12.0-15.5); LYMPH # 0.8 10^3/uL (1.5-5.0); LYMPH % 9.4 % (24.0-44.0); MEAN CORPUSCULAR HEMOGLOBIN 26.8 pg (27.0-33.0); MEAN CORPUSCULAR HGB CONC 31.1 g/dl (32.0-36.5); MEAN CORPUSCULAR VOLUME 85.9 fl (80.0-96.0); MONO # 0.7 10^3/uL (0.0-0.8); MONO % 8.6 % (2.0-8.0); NEUTROPHILS # 6.5 10^3/uL (1.5-8.5); NEUTROPHILS % 80.9 % (36.0-66.0); PLATELET COUNT, AUTOMATED 225 10^3/uL (150-450); RED BLOOD COUNT 4.41 10^6/uL (4.00-5.40)
[2022-10-10 22:39] LABS: INR 1.05; PROTHROMBIN TIME 13.9 SECONDS (12.5-14.5)
[2022-10-10 22:55] LABS: ALBUMIN 3.2 G/DL (3.2-5.2); ALKALINE PHOSPHATASE 134 U/L (46-116); ALT/SGPT 13 U/L (7.0-40); AST/SGOT 44 U/L (<34); BILIRUBIN,DIRECT 0.3 MG/DL (<0.4); BLOOD UREA NITROGEN 21 MG/DL (9-23); CALCIUM LEVEL 9.3 MG/DL (8.3-10.6); CARBON DIOXIDE LEVEL 22 MMOL/L (20-31); CHLORIDE LEVEL 109 MMOL/L (98-107); CREATININE FOR GFR 0.45 MG/DL (0.55-1.30); GLOMERULAR FILTRATION RATE > 60.0 (>32); GLUCOSE, FASTING 95 MG/DL (74-106); SODIUM LEVEL 144 MMOL/L (136-145); TOTAL PROTEIN 6.3 G/DL (5.7-8.2)
[2022-10-10 23:01] LABS: RSV AMPLIFICATION NEGATIVE (NEGATIVE)
[2022-10-11] MEDS ORDERED: HOME MED LIST COMPLETE! XX SCH (00:50)
[2022-10-11] MEDS ORDERED: UNRESOLVED CLARIFICATION ENTRY XX STA (01:34)
[2022-10-11 03:35] VITALS: BP 136/52
[2022-10-11 06:00] VITALS: BP 129/57
[2022-10-11 06:38] LABS: HEMATOCRIT 34.8 % (36.0-47.0); HEMOGLOBIN 11.1 g/dl (12.0-15.5); MEAN CORPUSCULAR HEMOGLOBIN 27.3 pg (27.0-33.0); MEAN CORPUSCULAR HGB CONC 31.9 g/dl (32.0-36.5); MEAN CORPUSCULAR VOLUME 85.5 fl (80.0-96.0); PLATELET COUNT, AUTOMATED 221 10^3/uL (150-450); RED BLOOD COUNT 4.07 10^6/uL (4.00-5.40); WHITE BLOOD COUNT 6.7 10^3/uL (4.0-10.0)
[2022-10-11 07:03] LABS: HEMOGLOBIN A1c 4.7 % (4.0-6.0)
[2022-10-11 07:09] LABS: VALPROIC ACID (DEPAKOTE) < 3.0 UG/ML (50.0-100.0)
[2022-10-11 07:10] LABS: BLOOD UREA NITROGEN 20 MG/DL (9-23); CALCIUM LEVEL 8.9 MG/DL (8.3-10.6); CARBON DIOXIDE LEVEL 26 MMOL/L (20-31); CHLORIDE LEVEL 108 MMOL/L (98-107); CREATININE FOR GFR 0.46 MG/DL (0.55-1.30); GLOMERULAR FILTRATION RATE > 60.0 (>32); GLUCOSE, FASTING 95 MG/DL (74-106); POTASSIUM SERUM 3.4 MMOL/L (3.5-5.1); SODIUM LEVEL 144 MMOL/L (136-145)
[2022-10-11] MEDS ORDERED: POTASSIUM CHLORIDE 10MEQ SR TABLET PO ONE (08:10)
[2022-10-11] MEDS ORDERED: diphenhydrAMINE 50MG/ML VIAL IV STA (09:46)
[2022-10-11] MEDS ORDERED: diphenhydrAMINE 50MG/ML VIAL As Ordered ONE (09:49)
[2022-10-11] MEDS: ENOXAPARIN 40MG/0.4ML SYRINGE (J1650 PER 10MG) SC SCH (09:52)
[2022-10-11] MEDS: diphenhydrAMINE 25MG CAP PO SCH ×3 (13:00→20:29)
[2022-10-11 15:18] VITALS: BP 131/56
[2022-10-11 20:00] VITALS: BP 129/50
[2022-10-11] MEDS: CEFUROXIME 500 MG TAB PO SCH (20:29)
[2022-10-12] MEDS: diphenhydrAMINE 25MG CAP PO SCH ×4 (00:06→13:00)
[2022-10-12] MEDS ORDERED: NS 1,000 ML IV SCH (03:00)
[2022-10-12 06:00] VITALS: BP 140/66
[2022-10-12 06:23] LABS: HEMATOCRIT 34.1 % (36.0-47.0); HEMOGLOBIN 10.4 g/dl (12.0-15.5); MEAN CORPUSCULAR HEMOGLOBIN 26.8 pg (27.0-33.0); MEAN CORPUSCULAR HGB CONC 30.5 g/dl (32.0-36.5); MEAN CORPUSCULAR VOLUME 87.9 fl (80.0-96.0); PLATELET COUNT, AUTOMATED 208 10^3/uL (150-450); RED BLOOD COUNT 3.88 10^6/uL (4.00-5.40); WHITE BLOOD COUNT 4.9 10^3/uL (4.0-10.0)
[2022-10-12 06:52] LABS: ALBUMIN 2.9 G/DL (3.2-5.2); ALKALINE PHOSPHATASE 113 U/L (46-116); ALT/SGPT < 9 U/L (7.0-40); AST/SGOT 24 U/L (<34); BILIRUBIN,TOTAL 0.6 MG/DL (0.3-1.2); BLOOD UREA NITROGEN 24 MG/DL (9-23); CARBON DIOXIDE LEVEL 28 MMOL/L (20-31); CHLORIDE LEVEL 112 MMOL/L (98-107); CREATININE FOR GFR 0.57 MG/DL (0.55-1.30); GLOMERULAR FILTRATION RATE > 60.0 (>32); GLUCOSE, FASTING 88 MG/DL (74-106); POTASSIUM SERUM 3.6 MMOL/L (3.5-5.1); SODIUM LEVEL 147 MMOL/L (136-145); TOTAL PROTEIN 5.9 G/DL (5.7-8.2)
[2022-10-12] MEDS: CEFUROXIME 500 MG TAB PO SCH ×2 (10:34→20:36)
[2022-10-12] MEDS: ENOXAPARIN 40MG/0.4ML SYRINGE (J1650 PER 10MG) SC SCH (10:34)
[2022-10-12 14:00] VITALS: BP 154/59
[2022-10-12] MEDS: ACETAMINOPHEN TAB 650MG DOSE (2X325MG) PO PRN (20:40)
[2022-10-12 20:45] VITALS: BP 120/68
[2022-10-13 06:00] VITALS: BP 108/49
[2022-10-13 06:29] LABS: HEMATOCRIT 33.4 % (36.0-47.0); HEMOGLOBIN 10.3 g/dl (12.0-15.5); MEAN CORPUSCULAR HEMOGLOBIN 27.2 pg (27.0-33.0); MEAN CORPUSCULAR HGB CONC 30.8 g/dl (32.0-36.5); MEAN CORPUSCULAR VOLUME 88.1 fl (80.0-96.0); PLATELET COUNT, AUTOMATED 224 10^3/uL (150-450); RED BLOOD COUNT 3.79 10^6/uL (4.00-5.40); WHITE BLOOD COUNT 4.1 10^3/uL (4.0-10.0)
[2022-10-13 06:52] LABS: ALBUMIN 2.8 G/DL (3.2-5.2); ALKALINE PHOSPHATASE 107 U/L (46-116); ALT/SGPT < 9 U/L (7.0-40); AST/SGOT 19 U/L (<34); BILIRUBIN,TOTAL 0.6 MG/DL (0.3-1.2); BLOOD UREA NITROGEN 21 MG/DL (9-23); CARBON DIOXIDE LEVEL 30 MMOL/L (20-31); CHLORIDE LEVEL 109 MMOL/L (98-107); GLOMERULAR FILTRATION RATE > 60.0 (>32); GLUCOSE, FASTING 88 MG/DL (74-106); POTASSIUM SERUM 3.5 MMOL/L (3.5-5.1); SODIUM LEVEL 147 MMOL/L (136-145); TOTAL PROTEIN 5.7 G/DL (5.7-8.2)
[2022-10-13] MEDS: ENOXAPARIN 40MG/0.4ML SYRINGE (J1650 PER 10MG) SC SCH (08:15)
[2022-10-13] MEDS: CEFUROXIME 500 MG TAB PO SCH (08:15)
[2022-10-13 08:16] VITALS: BP 124/52
[2022-10-13] MEDS: ACETAMINOPHEN TAB 650MG DOSE (2X325MG) PO PRN (08:35)
[2022-10-13] MEDS ORDERED: ONDANSETRON 4MG ORAL DISINTEGRATING TAB PO PRN (08:50)
[2022-10-13] MEDS: MORPHINE 10MG/0.5ML ORAL CONCENTRATE SOLUTION U/D SL PRN (20:14)
[2022-10-13] MEDS ORDERED: diphenhydrAMINE 25MG CAP PO PRN (21:35)
[2022-10-14] MEDS: MORPHINE 10MG/0.5ML ORAL CONCENTRATE SOLUTION U/D SL PRN ×2 (06:40→10:23)
[2022-10-14] MEDS: LORazepam 1 MG TAB PO PRN (12:02)
[2022-10-15] MEDS: LORazepam 1 MG TAB PO PRN (04:43)
[2022-10-15] MEDS: MORPHINE 10MG/0.5ML ORAL CONCENTRATE SOLUTION U/D SL PRN (04:44)
[2022-10-17] MEDS: MORPHINE 10MG/0.5ML ORAL CONCENTRATE SOLUTION U/D SL PRN (12:13)
[2022-10-18] MEDS: MORPHINE 10MG/0.5ML ORAL CONCENTRATE SOLUTION U/D SL PRN ×2 (02:24→09:18)
[2022-10-20] MEDS: MORPHINE 10MG/0.5ML ORAL CONCENTRATE SOLUTION U/D SL PRN ×3 (05:39→17:45)
[2022-10-20] MEDS: LORazepam 1 MG TAB PO PRN ×2 (06:38→10:57)
[2022-10-20] MEDS ORDERED: MORPHINE SULFATE ORAL SOLN 10 MG/5 ML UD SL PRN (11:15)
[2022-10-21] MEDS: MORPHINE 10MG/0.5ML ORAL CONCENTRATE SOLUTION U/D SL PRN ×2 (10:27→21:55)
[2022-10-22] MEDS: LORazepam 1 MG TAB PO PRN (06:43)
[2022-10-22] MEDS: MORPHINE 10MG/0.5ML ORAL CONCENTRATE SOLUTION U/D SL PRN ×3 (06:43→14:59)
[2022-10-24] MEDS: MORPHINE 10MG/0.5ML ORAL CONCENTRATE SOLUTION U/D SL PRN (17:49)
[2022-10-26] MEDS: MORPHINE 10MG/0.5ML ORAL CONCENTRATE SOLUTION U/D SL PRN ×4 (00:11→16:10)
[2022-10-27] MEDS: MORPHINE 10MG/0.5ML ORAL CONCENTRATE SOLUTION U/D SL PRN (06:56)
[2022-10-28] MEDS: NYSTATIN CREAM 15GM TOP SCH ×2 (12:09→20:48)
[2022-10-29] MEDS: diphenhydrAMINE CREAM 30GM TOP PRN (09:26)
[2022-10-29] MEDS: NYSTATIN CREAM 15GM TOP SCH ×2 (09:26→20:46)
[2022-10-30] MEDS: LORazepam 1 MG TAB PO PRN (06:51)
[2022-10-30] MEDS: diphenhydrAMINE CREAM 30GM TOP PRN ×2 (08:51→20:21)
[2022-10-30] MEDS: NYSTATIN CREAM 15GM TOP SCH ×2 (08:51→20:16)
[2022-10-30] MEDS: MORPHINE 10MG/0.5ML ORAL CONCENTRATE SOLUTION U/D SL PRN ×2 (16:26→20:32)
[2022-10-31] MEDS: NYSTATIN CREAM 15GM TOP SCH ×2 (09:20→21:25)
[2022-11-01] MEDS: diphenhydrAMINE CREAM 30GM TOP PRN (01:57)
[2022-11-01] MEDS: LORazepam 1 MG TAB PO PRN ×3 (01:59→20:48)
[2022-11-01] MEDS: NYSTATIN CREAM 15GM TOP SCH ×2 (14:15→20:19)
[2022-11-01] MEDS ORDERED: MOM 30ML SUSPENSION UDC PO PRN (21:20)
[2022-11-01] MEDS ORDERED: BISACODYL 10MG SUPP PR PRN (21:20)
[2022-11-01] MEDS ORDERED: FLEET ENEMA PR PRN (21:20)
[2022-11-01] MEDS ORDERED: MIRALAX *UNIT DOSE* 17GM PACKET PO PRN (21:20)
[2022-11-02] MEDS: LORazepam 1 MG TAB PO PRN ×2 (01:37→20:08)
[2022-11-02] MEDS: MORPHINE 10MG/0.5ML ORAL CONCENTRATE SOLUTION U/D SL PRN (06:48)
[2022-11-02] MEDS: NYSTATIN CREAM 15GM TOP SCH ×2 (09:39→20:08)
[2022-11-03] MEDS: NYSTATIN CREAM 15GM TOP SCH ×2 (08:59→21:42)
[2022-11-03] MEDS: LORazepam 1 MG TAB PO PRN ×2 (09:00→11:00)
[2022-11-03] MEDS: MORPHINE 10MG/0.5ML ORAL CONCENTRATE SOLUTION U/D SL PRN (10:07)
[2022-11-04] MEDS: LORazepam 1 MG TAB PO PRN (02:10)
[2022-11-04] MEDS: MORPHINE 10MG/0.5ML ORAL CONCENTRATE SOLUTION U/D SL PRN ×3 (02:10→18:37)
[2022-11-04] MEDS: NYSTATIN CREAM 15GM TOP SCH ×2 (09:00→21:41)
[2022-11-04] MEDS: diphenhydrAMINE CREAM 30GM TOP PRN (18:37)
[2022-11-05] MEDS: MORPHINE 10MG/0.5ML ORAL CONCENTRATE SOLUTION U/D SL PRN ×3 (08:11→16:12)
[2022-11-05] MEDS: diphenhydrAMINE CREAM 30GM TOP PRN (08:11)
[2022-11-05] MEDS: NYSTATIN CREAM 15GM TOP SCH ×2 (09:00→19:51)
[2022-11-05] MEDS: HYDROCORTISONE 2.5% 20GM OINTMENT TOP SCH (16:06)
[2022-11-06] MEDS: MORPHINE 10MG/0.5ML ORAL CONCENTRATE SOLUTION U/D SL PRN (03:41)
[2022-11-06] MEDS: NYSTATIN CREAM 15GM TOP SCH ×2 (08:52→20:33)
[2022-11-06] MEDS: HYDROCORTISONE 2.5% 20GM OINTMENT TOP SCH ×2 (08:52→20:34)
[2022-11-06] MEDS: LORazepam 1 MG TAB PO PRN ×2 (11:26→20:55)
[2022-11-07] MEDS: NYSTATIN CREAM 15GM TOP SCH ×2 (07:50→21:06)
[2022-11-07] MEDS: HYDROCORTISONE 2.5% 20GM OINTMENT TOP SCH ×2 (07:50→21:05)
[2022-11-07] MEDS: LORazepam 1 MG TAB PO PRN ×2 (11:54→21:05)
[2022-11-08] MEDS: LORazepam 1 MG TAB PO PRN ×3 (06:49→22:32)
[2022-11-08] MEDS: HYDROCORTISONE 2.5% 20GM OINTMENT TOP SCH ×2 (07:55→22:24)
[2022-11-08] MEDS: NYSTATIN CREAM 15GM TOP SCH ×2 (07:56→22:25)
[2022-11-08] MEDS: MORPHINE 10MG/0.5ML ORAL CONCENTRATE SOLUTION U/D SL PRN (23:23)
[2022-11-09] MEDS: HYDROCORTISONE 2.5% 20GM OINTMENT TOP SCH ×2 (09:12→21:26)
[2022-11-09] MEDS: NYSTATIN CREAM 15GM TOP SCH ×2 (09:12→21:27)
[2022-11-10] MEDS: LORazepam 1 MG TAB PO PRN (03:38)
[2022-11-10] MEDS: MORPHINE 10MG/0.5ML ORAL CONCENTRATE SOLUTION U/D SL PRN (03:38)
[2022-11-10] MEDS: NYSTATIN CREAM 15GM TOP SCH ×2 (07:40→20:44)
[2022-11-10] MEDS: HYDROCORTISONE 2.5% 20GM OINTMENT TOP SCH ×2 (07:41→20:44)
[2022-11-11] MEDS: NYSTATIN CREAM 15GM TOP SCH ×2 (07:56→20:36)
[2022-11-11] MEDS: HYDROCORTISONE 2.5% 20GM OINTMENT TOP SCH ×2 (07:56→20:35)
[2022-11-11] MEDS: LORazepam 1 MG TAB PO PRN ×2 (07:57→17:35)
[2022-11-12] MEDS: HYDROCORTISONE 2.5% 20GM OINTMENT TOP SCH ×2 (09:41→21:19)
[2022-11-12] MEDS: NYSTATIN CREAM 15GM TOP SCH ×2 (09:42→21:19)
[2022-11-12] MEDS: LORazepam 1 MG TAB PO PRN (21:20)
[2022-11-13] MEDS: MORPHINE 10MG/0.5ML ORAL CONCENTRATE SOLUTION U/D SL PRN (04:35)
[2022-11-13] MEDS: NYSTATIN CREAM 15GM TOP SCH ×2 (07:41→19:42)
[2022-11-13] MEDS: HYDROCORTISONE 2.5% 20GM OINTMENT TOP SCH ×2 (07:42→19:42)
[2022-11-13] MEDS: LORazepam 1 MG TAB PO PRN (17:02)
[2022-11-14] MEDS: LORazepam 1 MG TAB PO PRN (08:34)
[2022-11-14] MEDS: NYSTATIN CREAM 15GM TOP SCH ×2 (08:35→19:29)
[2022-11-14] MEDS: HYDROCORTISONE 2.5% 20GM OINTMENT TOP SCH ×2 (08:35→19:29)
[2022-11-14] MEDS ORDERED: MIRA1POW3 PO (21:18)
[2022-11-14] MEDS ORDERED: MORP1SOL SL (21:18)
[2022-11-14] MEDS ORDERED: ONDA4TAB6 PO (21:18)
[2022-11-14] MEDS ORDERED: ATIV1TAB7 PO (21:18)
[2022-11-15] MEDS: LORazepam 1 MG TAB PO PRN (02:50)
[2022-11-15] MEDS: NYSTATIN CREAM 15GM TOP SCH (09:00)
[2022-11-15] MEDS: HYDROCORTISONE 2.5% 20GM OINTMENT TOP SCH (09:00)
== END 2022-11-15 11:17 | disposition hospice, inpatient (51) | DRG 535 ==
LOC: M ED 21:03 → M ED INP 23:49 → M MSPAV 10-11 04:00
PROVIDERS: ADMIT Internal Medicine; ATTEND Internal Medicine
DX: S32.501A Unspecified fracture of right pubis, initial encounter for closed fracture (principal); E43 Unspecified severe protein-calorie malnutrition; N39.0 Urinary tract infection, site not specified; Z68.1 Body mass index [BMI] 19.9 or less, adult; E87.0 Hyperosmolality and hypernatremia; B96.20 Unspecified Escherichia coli [E. coli] as the cause of diseases classified elsewhere; F03.90 Unspecified dementia, unspecified severity, without behavioral disturbance, psychotic disturbance, mood disturbance, and anxiety; G40.909 Epilepsy, unspecified, not intractable, without status epilepticus; I25.10 Atherosclerotic heart disease of native coronary artery without angina pectoris; I08.0 Rheumatic disorders of both mitral and aortic valves; E78.5 Hyperlipidemia, unspecified; I10 Essential (primary) hypertension; J44.9 Chronic obstructive pulmonary disease, unspecified; J45.909 Unspecified asthma, uncomplicated; E11.9 Type 2 diabetes mellitus without complications; Z98.41 Cataract extraction status, right eye; Z98.42 Cataract extraction status, left eye; Z90.49 Acquired absence of other specified parts of digestive tract; Z90.79 Acquired absence of other genital organ(s); Z96.641 Presence of right artificial hip joint; Z88.0 Allergy status to penicillin; Z88.2 Allergy status to sulfonamides; Z88.7 Allergy status to serum and vaccine; Z91.040 Latex allergy status; Z91.011 Allergy to milk products; Z91.012 Allergy to eggs; Z66 Do not resuscitate; W01.0XXA Fall on same level from slipping, tripping and stumbling without subsequent striking against object, initial encounter; Y92.009 Unspecified place in unspecified non-institutional (private) residence as the place of occurrence of the external cause; E87.6 Hypokalemia

== ENCOUNTER → 2022-12-14 | Outpatient (REF) ==
[~2022-12-14] MED LIST changes: +ATIV1TAB7 PO; +MIRA1POW3 PO; +MORP1SOL SL; +ONDA4TAB6 PO
[2022-12-14 19:19] LABS: APPEARANCE, URINE TURBID (CLEAR); BACTERIA, URINE AUTO 2+ (NEGATIVE); BILIRUBIN, URINE AUTO NEGATIVE (NEGATIVE); BLOOD, URINE BLOOD 3+ (NEGATIVE); COLOR, URINE AMBER (YELLOW); GLUCOSE, URINE (UA) AUTO NEGATIVE (NEGATIVE); KETONE, URINE AUTO TRACE mg/dL (NEGATIVE); LEUKOCYTE ESTERASE, URINE AUTO 2+ (NEGATIVE); MUCUS, URINE LARGE (NEGATIVE); NITRITE, URINE AUTO NEGATIVE (NEGATIVE); PROTEIN, URINE AUTO 2+ mg/dL (NEGATIVE); RBC, URINE AUTO TNTC /HPF (0-3); SPECIFIC GRAVITY URINE AUTO 1.024 (1.002-1.035); SQUAMOUS EPITHELIAL CELL UR AU 4 /HPF (0-6); WBC, URINE AUTO TNTC /HPF (0-3)
== END ==
LOC: M LAB REF 18:43
DX: N39.0 Urinary tract infection, site not specified (principal); G30.9 Alzheimer's disease, unspecified; F02.80 Dementia in other diseases classified elsewhere, unspecified severity, without behavioral disturbance, psychotic disturbance, mood disturbance, and anxiety; Z87.440 Personal history of urinary (tract) infections; I25.10 Atherosclerotic heart disease of native coronary artery without angina pectoris

== ENCOUNTER 2023-05-28 21:39 | Observation (INO) | payer MEDICARE, OTHER ==
[2023-05-29] MEDS ORDERED: ONDANSETRON 4MG ORAL DISINTEGRATING TAB PO PRN (01:45)
[2023-05-29] MEDS ORDERED: ACETAMINOPHEN TAB 650MG DOSE (2X325MG) PO PRN (01:45)
[2023-05-29] MEDS ORDERED: HYOSCYAMINE SULFATE 0.125 MG SUBL TABLET PO PRN (01:45)
[2023-05-29] MEDS: MORPHINE SULFATE ORAL SOLN 10 MG/5 ML UD SL PRN ×3 (04:18→14:14)
[2023-05-29 05:35] VITALS: TEMP 98.1
[2023-05-29] MEDS ORDERED: MORPHINE SULFATE ORAL SOLN 10 MG/5 ML UD PO ONE (05:35)
[2023-05-29 06:14] VITALS: BP 154/89
[2023-05-29 06:45] VITALS: O2SAT 97
[2023-05-29] MEDS ORDERED: MED REC IN PROGRESS XX SCH (07:55)
[2023-05-29] MEDS: SCOPOLAMINE 1MG TRANSDERMAL PATCH TOP PRN (11:05)
[2023-05-29] MEDS ORDERED: [UNRECOGNIZED DRUG - REMARK] (11:08)
[2023-05-29] MEDS ORDERED: HOME MED LIST COMPLETE! XX SCH (13:15)
[2023-05-29] MEDS ORDERED: MORPHINE 10MG/0.5ML ORAL CONCENTRATE SOLUTION U/D SL PRN (15:25)
[2023-05-29] MEDS: LORazepam 1 MG TAB PO PRN ×2 (16:42→22:47)
[2023-05-29] MEDS: MORPHINE 10MG/0.5ML ORAL CONCENTRATE SOLUTION U/D SL PRN (22:47)
[2023-05-30] MEDS: LORazepam 1 MG TAB PO PRN (06:36)
[2023-05-30] MEDS: MORPHINE 10MG/0.5ML ORAL CONCENTRATE SOLUTION U/D SL PRN ×5 (06:37→22:23)
[2023-05-31] MEDS: MORPHINE 10MG/0.5ML ORAL CONCENTRATE SOLUTION U/D SL PRN ×5 (01:23→23:28)
[2023-06-01] MEDS: MORPHINE 10MG/0.5ML ORAL CONCENTRATE SOLUTION U/D SL PRN ×5 (04:44→20:31)
[2023-06-01] MEDS: LORazepam 1 MG TAB PO PRN (10:17)
[2023-06-01 10:20] LABS: ALBUMIN 2.6 G/DL (3.2-5.2)
[2023-06-01 10:27] LABS: PREALBUMIN 8.9 MG/DL (10.0-40.0)
[2023-06-02] MEDS: MORPHINE 10MG/0.5ML ORAL CONCENTRATE SOLUTION U/D SL PRN ×3 (00:08→15:36)
[2023-06-03] MEDS: MORPHINE 10MG/0.5ML ORAL CONCENTRATE SOLUTION U/D SL PRN (02:16)
[2023-06-04] MEDS: MORPHINE 10MG/0.5ML ORAL CONCENTRATE SOLUTION U/D SL PRN ×2 (15:33→22:52)
[2023-06-05] MEDS: MORPHINE 10MG/0.5ML ORAL CONCENTRATE SOLUTION U/D SL PRN ×3 (06:27→18:38)
[2023-06-05] MEDS: LORazepam 1 MG TAB PO PRN (07:52)
[2023-06-05] MEDS: SCOPOLAMINE 1MG TRANSDERMAL PATCH TOP PRN (15:29)
[2023-06-06] MEDS: MORPHINE 10MG/0.5ML ORAL CONCENTRATE SOLUTION U/D SL PRN ×3 (09:15→22:48)
[2023-06-07] MEDS: MORPHINE 10MG/0.5ML ORAL CONCENTRATE SOLUTION U/D SL PRN ×3 (05:51→23:44)
[2023-06-08] MEDS: MORPHINE 10MG/0.5ML ORAL CONCENTRATE SOLUTION U/D SL PRN (16:11)
[2023-06-08] MEDS: SCOPOLAMINE 1MG TRANSDERMAL PATCH TOP PRN (16:13)
[2023-06-09] MEDS: MORPHINE 10MG/0.5ML ORAL CONCENTRATE SOLUTION U/D SL PRN ×4 (01:09→18:49)
[2023-06-09] MEDS ORDERED: MORPHINE 10MG/0.5ML ORAL CONCENTRATE SOLUTION U/D SL ONE (08:50)
[2023-06-09] MEDS: LORazepam 1 MG TAB PO PRN ×2 (16:15→18:48)
[2023-06-10] MEDS: MORPHINE 10MG/0.5ML ORAL CONCENTRATE SOLUTION U/D SL PRN ×6 (02:50→23:59)
[2023-06-10] MEDS: LORazepam 1 MG TAB PO PRN ×3 (08:00→17:01)
[2023-06-11] MEDS: MORPHINE 10MG/0.5ML ORAL CONCENTRATE SOLUTION U/D SL PRN ×5 (09:29→17:54)
[2023-06-11] MEDS ORDERED: MORPHINE 10MG/0.5ML ORAL CONCENTRATE SOLUTION U/D SL PRN (12:05)
[2023-06-11] MEDS: fentaNYL 25 MCG/HR PATCH TOP SCH (14:09)
[2023-06-11] MEDS: LORazepam 1 MG TAB PO PRN (14:22)
[2023-06-12] MEDS: MORPHINE 10MG/0.5ML ORAL CONCENTRATE SOLUTION U/D SL PRN ×2 (12:16→15:47)
[2023-06-12] MEDS: LORazepam 1 MG TAB PO PRN (15:47)
[2023-06-13] MEDS: MORPHINE 10MG/0.5ML ORAL CONCENTRATE SOLUTION U/D SL PRN ×2 (02:39→09:53)
[2023-06-13] MEDS: LORazepam 1 MG TAB PO PRN ×2 (02:39→09:53)
[2023-06-14] MEDS: fentaNYL 25 MCG/HR PATCH TOP SCH (10:02)
[2023-06-14] MEDS: LORazepam 1 MG TAB PO PRN (10:03)
[2023-06-14] MEDS: SCOPOLAMINE 1MG TRANSDERMAL PATCH TOP PRN (10:03)
[2023-06-16] MEDS: LORazepam 1 MG TAB PO PRN ×2 (10:30→22:48)
[2023-06-16] MEDS: MORPHINE 10MG/0.5ML ORAL CONCENTRATE SOLUTION U/D SL PRN ×2 (10:30→22:48)
[2023-06-17] MEDS: SCOPOLAMINE 1MG TRANSDERMAL PATCH TOP PRN (09:27)
[2023-06-17] MEDS: fentaNYL 25 MCG/HR PATCH TOP SCH (09:27)
[2023-06-17] MEDS: FENTANYL REMOVAL DOCUMENTATION MISC XX SCH (09:33)
[2023-06-17] MEDS: MORPHINE 10MG/0.5ML ORAL CONCENTRATE SOLUTION U/D SL PRN ×3 (14:06→23:04)
[2023-06-18] MEDS: MORPHINE 10MG/0.5ML ORAL CONCENTRATE SOLUTION U/D SL PRN ×5 (06:48→21:16)
[2023-06-18] MEDS: LORazepam 1 MG TAB PO PRN ×4 (06:49→18:37)
[2023-06-19] MEDS: MORPHINE 10MG/0.5ML ORAL CONCENTRATE SOLUTION U/D SL PRN ×7 (02:59→23:36)
[2023-06-19] MEDS: LORazepam 1 MG TAB PO PRN ×5 (05:34→20:23)
[2023-06-19] MEDS: fentaNYL 50 MCG/HR PATCH TOP SCH (11:37)
[2023-06-19] MEDS: FENTANYL REMOVAL DOCUMENTATION MISC XX SCH (11:37)
[2023-06-20] MEDS: MORPHINE 10MG/0.5ML ORAL CONCENTRATE SOLUTION U/D SL PRN ×3 (01:40→08:00)
[2023-06-20] MEDS: LORazepam 1 MG TAB PO PRN ×2 (01:47→05:12)
[2023-06-22] MEDS: fentaNYL 50 MCG/HR PATCH TOP SCH (12:12)
[2023-06-22] MEDS: FENTANYL REMOVAL DOCUMENTATION MISC XX SCH (12:13)
[2023-06-23] MEDS: FENTANYL REMOVAL DOCUMENTATION MISC XX SCH (05:09)
== END 2023-06-23 01:48 | disposition expired ==
LOC: M ED 21:39 → M ED INP 21:40 → ENRESERV 05-29 13:38 → M MSPAV 05-29 15:10
PROVIDERS: ADMIT Internal Medicine; ATTEND Student in an Organized Health Care Education/Training Program
DX: R06.02 Shortness of breath (principal); Z51.5 Encounter for palliative care; R41.82 Altered mental status, unspecified; F02.C0 Dementia in other diseases classified elsewhere, severe, without behavioral disturbance, psychotic disturbance, mood disturbance, and anxiety; R62.7 Adult failure to thrive; E43 Unspecified severe protein-calorie malnutrition; M62.50 Muscle wasting and atrophy, not elsewhere classified, unspecified site; G40.909 Epilepsy, unspecified, not intractable, without status epilepticus; L89.95 Pressure ulcer of unspecified site, unstageable; R52 Pain, unspecified; I25.10 Atherosclerotic heart disease of native coronary artery without angina pectoris; E78.5 Hyperlipidemia, unspecified; I10 Essential (primary) hypertension; E11.622 Type 2 diabetes mellitus with other skin ulcer; J44.9 Chronic obstructive pulmonary disease, unspecified; I08.9 Rheumatic multiple valve disease, unspecified; R64 Cachexia; I73.9 Peripheral vascular disease, unspecified; Z88.0 Allergy status to penicillin; Z91.012 Allergy to eggs; Z91.011 Allergy to milk products; Z91.040 Latex allergy status; Z88.7 Allergy status to serum and vaccine; Z88.8 Allergy status to other drugs, medicaments and biological substances
CPT/HCPCS: 36415; 82040; 84134; 87635; 99285; G0378